=== PATIENT | male | born 1955 | race Caucasian/White ===

== ENCOUNTER → 2022-10-13 | Outpatient (CLI) | payer MEDICARE, OTHER, SELFPAY ==
--- NOTE | 2022-10-13 08:15 | CT_ITS ---
STUDY: CT LEFT SHOULDER REASON FOR EXAM: Male, 66 years old. PRE OP WAS RADIATION DOSAGE (If Supplied By Facility): CTDIvol = ( 28.82 ) mGy, DLP = ( 799.29 ) mGycm TECHNIQUE: The patient was scanned in a multi detector CT scanner. High resolution transaxial imaging was performed without the administration of intravenous contrast material. Sagittal and coronal images were reconstructed. Individualized dose optimization techniques were used for this CT. COMPARISON: None. FINDINGS: There is moderate osteoarthritis, with moderate articular joint space narrowing and moderate osteoarthritic spurring. There is a 1.4 cm x 1 cm cystic change in the subglenoid bone. Normal humeral head, neck and tuberosities. Decreased distance between the humeral head in the acromion suggestive of a rotator cuff pathology. Normal coracoid process. Normal visualized lateral clavicle. Normal acromioclavicular articulation. There is a Type II morphology (curved), with a neutral orientation. Normal visualized muscles and soft tissue structures. CT/Extremity Upper without Contra IMPRESSION: Moderate degree of osteoarthritis involving the glenohumeral joint. Decreased distance between the humeral head and acromion suggestive of a rotator cuff pathology. Electronically Signed: Robert Green MD at 9:46 EST ,
== END | disposition home or self-care (01) ==
PROVIDERS: PCP Internal Medicine; Referring Provider Specialist; Visit Provider Specialist
DX: M19.012 Primary osteoarthritis, left shoulder (principal)
CPT/HCPCS: 73200

== ENCOUNTER → 2023-03-29 | Outpatient (CLI) | payer MEDICARE, OTHER, SELFPAY ==
[2023-03-29 12:21] LABS: Absolute Lymphocyte Count 1.32 X10^3/uL (0.83-4.51); Absolute Neutrophil Count 4.4 X10^3/uL (2.0-7.7); Basophil# 0.03 X10^3/uL; Basophil% 0.5 % (0-1); Eosinophil# 0.12 X10^3/uL; Eosinophils% 1.8 % (0-5); Hematocrit 49.4 % (40-54); Hemoglobin 16.1 g/dL (13.0-16.5); Lymphocyte # 1.32 X10^3/ul (0.83-4.51); Lymphocyte % 20.3 % (19-41); Mean Corp Hgb Conc 32.6 g/dL (32-36); Mean Corpuscular Hgb 30.3 pg (27.0-32.0); Mean Corpuscular Volume 92.9 fL (80-94); Mean Platelet Vol. 10.8 fl (6.2-12.0); Monocyte# 0.65 X10^3/uL; NRBC Flagged by Analyzer 0 % (0-5); Neutrophil # 4.35 X10^3/uL (2.7-7.7); Neutrophil % 67.1 % (47-70); Platelet Count 192 K/mm3 (150-450); RBC Distribution Width CV 13.2 % (11.6-14.6); RBC Distribution Width SD 44.9 fl (35.1-43.9); Red Blood Count 5.32 M/mm3 (4.6-6.2); White Blood Count 6.5 K/mm3 (4.4-11.0)
[2023-03-29 12:55] LABS: ALB/GLOB Ratio 1.2 RATIO (0.9-2.4); AST(SGOT) 25 U/L (15-37); Alanine Aminotransfer ALT/SGPT 37 U/L (16-61); Albumin, Serum 3.5 g/dL (3.2-5.0); Alkaline Phosphatase 28 U/L (45-117); Anion Gap 8 (5-15); BUN 17 mg/dL (7-18); Calcium,Total 9.2 mg/dL (8.5-10.1); Chloride 108 mmol/L (98-107); Cholesterol 139 mg/dL (200); Creatinine, Serum 0.77 mg/dL (0.70-1.30); EST Glomerular Filtration Rate 106 mL/min (>60); Est Glom Filt Rate - Afr Amer 128 mL/min (>60); Glucose 112 mg/dL (74-106); High Density Lipoprotein 52 mg/dL; PSA,Total - Annual Screen 1.04 ng/mL (0.00-4.00); Potassium 3.7 mmol/L (3.5-5.1); Protein, Total 6.5 g/dL (6.4-8.2); Sodium Level 139 mmol/L (136-145); Triglycerides 68 mg/dL; Very Low Density Lipoprotein 14 mg/dL (5-40)
[2023-03-30 16:30] LABS: Hemoglobin A1c 5.3 % (3.8-5.6)
[2023-04-07 10:09] LABS: Testosterone, % Free 2.24 % (1.50-4.20); Testosterone, Free 10.73 ng/dL (5.00-21.00); Testosterone, Total 479 ng/dL (264-916)
== END | disposition home or self-care (01) ==
LOC: BIMLAB 08:47
PROVIDERS: PCP Internal Medicine; Visit Provider Internal Medicine
DX: I10 Essential (primary) hypertension (principal); E34.9 Endocrine disorder, unspecified; R73.9 Hyperglycemia, unspecified; Z12.5 Encounter for screening for malignant neoplasm of prostate
CPT/HCPCS: 36415; 80053; 80061; 83036; 84153; 84402; 84403; 85025; G0103

== ENCOUNTER → 2023-04-11 | Outpatient (CLI) | payer MEDICARE, OTHER, SELFPAY ==
--- NOTE | 2023-04-11 15:38 | MRI_ITS ---
INDICATION: pain INTO LEGS BILATERALLY, X 6-9 MONTHS EXAMINATION: MRI - MR Spine Lumbar WO/W Contrast TECHNIQUE: Multiplanar and multisequence MR images of the lumbar spine. IV Contrast Dosage and Agent: 20 CC IV CLARISCAN COMPARISON: 03/29/2023. FINDINGS: VERTEBRAE: Vertebral body heights are preserved. Normal vertebral bodies and posterior elements. VERTEBRAL ALIGNMENT: No spondylolisthesis. There is preservation of the normal lumbar lordosis. CORD: Normal position and signal intensity of the conus medullaris. T12/L1, L1/L2:, L2/L3: Decreased disc height and small circumferential disc bulge. Degenerative changes of the bilateral facet joints. Mild narrowing of the central canal and bilateral intervertebral neural foramina. L3/L4: Congenitally short pedicles, large synovial cyst originating from the right facet joint measures 13 x 21 mm and small circumferential disc bulge. Degenerative changes of the bilateral facet joints. Severe narrowing of the central canal and moderate narrowing of the bilateral intervertebral neural foramina. L4/L5, L5/S1: Decreased disc height and small circumferential disc bulge. Degenerative changes of the bilateral facet joints. Mild narrowing of the central canal and bilateral intervertebral neural foramina. SOFT TISSUES: Unremarkable. MRI/Spine Lumbar W/WO Contrast IMPRESSION: Multilevel degenerative spondylosis worse at L3-4 as described above. Severe spinal canal stenosis at L3-4. Electronically Signed: Hina Bhagat MD at 5:14 EDT ,
== END | disposition home or self-care (01) ==
LOC: MRI 15:25
PROVIDERS: PCP Internal Medicine; Referring Provider Orthopaedic Surgery; Visit Provider Orthopaedic Surgery
DX: M48.061 Spinal stenosis, lumbar region without neurogenic claudication (principal)
CPT/HCPCS: 72158; A9575

== ENCOUNTER 2023-07-03 08:42 | Day surgery (SDC) | payer MEDICARE, OTHER, SELFPAY ==
[2023-07-03 09:19] VITALS: BP 131/75; PULSE 82; RESP 16; TEMP 36.2; O2SAT 95; BMI 27.0
[2023-07-03] MEDS: Lactated Ringers 1,000 ML 15 ML IV (09:26)
--- NOTE | 2023-07-03 10:02 | RAD_ITS ---
PROCEDURE: Caudal epidural steroid injection. DATE OF EXAMINATION: July 03, 2023. INDICATION: Male, 67 years old. Chronic low back pain. FLUOROSCOPY TIME (if supplied): (3 seconds) minutes/seconds. 1.3 mGy. One spot image was submitted. RAD/Fluor Guidance for Spine Inj IMPRESSION: Intraoperative imaging provided for caudal epidural steroid injection. Electronically Signed: Robert Green MD at 11:03 EST ,
[2023-07-03] MEDS: MethylPREDNISolone Acetate 80 MG/ML Vial (10:08)
[2023-07-03] MEDS: 0.9% Normal Saline (Pres. free 10 ML Vial (10:08)
[2023-07-03] MEDS: Lidocaine 1% (5 ml sdv) 5 ML Vial (10:08)
[2023-07-03 10:15] VITALS: BP 124/61; BP 131/75; PULSE 70; RESP 16; TEMP 37.1; O2SAT 95
--- NOTE | 2023-07-03 10:15 | PCM.OPRPT ---
Report of Operation Date of Procedure: 07/03/23 Pre-Operative Diagnosis: Lumbosacral radiculopathy, postlaminectomy syndrome of the lumbar spine, lumbosacral spinal stenosis Post-Operative Diagnosis: Lumbosacral radiculopathy, postlaminectomy syndrome of the lumbar spine, lumbosacral spinal stenosis Surgery/Procedure Performed:: Diagnostic/therapeutic caudal epidural steroid injection under fluoroscopic guidance Type of Anesthesia: MAC Estimated Blood Loss (mL): Minimal Description of Procedure: DESCRIPTION OF PROCEDURE: History and physical of today was reviewed. Risks and benefits of the procedure were explained. The patient understood and agreed to proceed. Informed consent was obtained. IV inserted per routine protocol. The patient was taken to the operating room and placed in the prone position with a pillow positioned underneath the abdomen. The lower back and tailbone area was prepped and draped in a sterile fashion using iodine x3. Under fluoroscopy guidance on a lateral view, the caudal space was identified. The skin and subcutaneous tissue was anesthetized with approximately 3 mL of 1% lidocaine using a 25-gauge regular needle. Under direct visualization with fluoroscopy, using a 22-gauge 3-1/2-inch spinal needle, the needle was advanced via the skin through the sacral hiatus. The tip of the needle was passed through the sacrococcygeal ligament and advanced to approximately S4 area. After negative aspiration of blood or CSF, a total of 3 mL of contrast was injected to confirm correct placement of the needle as well as cephalad spread. The spread was followed to approximately L5 area. After confirmation on AP as well as lateral view and repeated negative aspiration, a total of 15 mL of preservative-free 0.125% Marcaine with 80 mg of Depo-Medrol was injected easily. The needle was then removed intact. The patient experienced no sign or symptoms of intrathecal or intravascular injection. The patient experienced no paresthesia. The procedure was completed without any apparent difficulty or any complications. The patient appeared to tolerate it well. ASSESSMENT AND PLAN: This is a 67-year-old male with lumbosacral radiculopathy, lumbosacral degenerative disc disease, lumbosacral spinal stenosis status post diagnostic/therapeutic caudal epidural steroid injection, patient will continue his current medications, patient will follow in approximately 2 weeks for reevaluation. Complications None
[2023-07-03 10:20] VITALS: BP 106/64; BP 131/75; PULSE 71; RESP 16; O2SAT 94
[2023-07-03 10:25] VITALS: BP 112/65; BP 131/75; PULSE 69; RESP 16; O2SAT 94
[2023-07-03 10:40] VITALS: BP 117/63; BP 131/75; PULSE 73; RESP 16; TEMP 36.7; O2SAT 92
[2023-07-03 10:56] VITALS: BP 131/75
== END 2023-07-03 10:56 | disposition home or self-care (01) ==
LOC: SDC 08:47 → AC 08:49
PROVIDERS: PCP Internal Medicine; Referring Provider Anesthesiology Pain Medicine; Visit Provider Anesthesiology Pain Medicine
PROC: 3E0S3BZ Introduction of Anesthetic Agent into Epidural Space, Percutaneous Approach (ICD-10-PCS; CPT 62282; principal; 2023-07-03 10:35)
DX: M48.061 Spinal stenosis, lumbar region without neurogenic claudication (principal); M51.17 Intervertebral disc disorders with radiculopathy, lumbosacral region; M96.1 Postlaminectomy syndrome, not elsewhere classified; M48.07 Spinal stenosis, lumbosacral region; I10 Essential (primary) hypertension; E34.9 Endocrine disorder, unspecified; J45.909 Unspecified asthma, uncomplicated
CPT/HCPCS: 62323; 64483; 77003; J7120; J3490

== ENCOUNTER 2023-07-27 13:30 | Outpatient (RCR) | payer MEDICARE, OTHER, SELFPAY ==
--- NOTE | 2023-06-28 08:16 | HP.OTEVAL ---
Patient's Visit Information Visit Information Visit Information: NEGRITA CASTAÑEDA is a 67 year old M, referred to Occupational Therapy by KATIANA WILEY, with a diagnosis of . 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 pt states his left wrist had been painful for years. Had some set backs with other shoulder issues and now had sx. to decrease pain. pt is left handed and would like to write and have more ROM of his wrist to brush his teeth better. 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 Oder request eval & tx AAROM/AROM of wrist, scar management and wean from brace- progress wrist ROM for 4-6 weeks. pt to wear brace with activities and when sleeping- remove brace 4-6x a day for OT ex. pt demo with limited ROM of left wrist and use of dominate hand for ADLs. pt demo need for skilled OT services 1-2x week for 8 weeks to provide ex for pt to return to IND with ADLs and IADls. Rehabilitation Potential: Good Anticipated Interventions Anticipated Interventions: A/AAROM/PROM, Strengthening, Modalities, Joint Protection/Energy Conservation, Ergonomic Education, Fine Motor Coord/Vazquez, Education re assistive Equipment, Education re Diagnosis and Home Program Visit Plan Frequency: 1-2x /Week Duration: 2 Months General Plan: AROM/ AAROM of wrist wean from brace over next 4-6 weeks ( orders written on 06/15/23) NO strengthening until Dr. avendano Must ensure pain free rehabilitation program TEXT: Thank you for the opportunity to evaluate your patient. For Medicare and Medicare HMO plans, please review the plan of care and approve it. It will need to be FAXED BACK to us at [phone] for Medicare purposes. Please let me know if there are questions or concerns regarding this plan of care. Physician Signature: Date:
--- NOTE | 2023-07-27 13:55 | OTREVAL_ITS ---
Re-Evaluation Intro: KATIANA WILEY, It has been my pleasure to treat NEGRITA CASTAÑEDA over the last 4 visits for Proximal row carpectomy. Please see the progress note below for an update on the occupational therapy plan of care! Subjective Subjective: pt states he is feeling good- feel like he as more strength states he has been out of his wrist brace when in his home and doing some wt. on gym eq. without difficulty 12 weeks s/p from proximal row carpectomy Objective Objective/Function: left jack frame tender strength 40# left lateral pinch 8# left tripod pinch 10# left wrist ROM 45/40 increase from 35/20 pt has progressed well with his ROM and strength Pt is IND with all ADLs pt is driving IND pt has returned to gym using the UB eq. and has his wts about 10# less than what he was doing prior to his PRC sx. pt has met goals and can be D/c from OT services Plan Plan Frequency: 1-2x /Week Duration: 2 Months Goals Goals Patient Goals: Regain Mobility, Regain Strength, Improve Fine Motor Skills and Use Hand/Wrist/Arm Normally Again Goal:100% adherence to protocol: Yes Goal:Daily scar massage when approriate: Yes Goal:No pain with affected hand use: Yes Goal:Full use of affected hand in daily activities including work: Yes Goal:Decrease scar hypersensitivity: Yes Anticipated Interventions Anticipated Interventions Anticipated Interventions: A/AAROM/PROM, Strengthening, Modalities, Joint Protection/Energy Conservation, Ergonomic Education, Fine Motor Coord/Vazquez, Education re assistive Equipment, Education re Diagnosis and Home Program Re-Evaluation Ending Re-evaluation ending: Please do not hesitate to contact me at [phone] by phone or if you have questions or concerns regarding this new plan of care! Sincerely, Jayla Reddy, OTR/L, CHT
--- NOTE | 2023-07-27 13:59 | HP.OTDCSUM ---
Discharge Summary D/C Summary: It has been my pleasure to treat NEGRITA CASTAÑEDA under orders from KATIANA WILEY, for the diagnosis of Proximal row carpectomy for a total of 4 visit(s). Please see the following information for a summary of their discharge status. 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 and has his wts about 10# less than what he was doing prior to his PRC sx. pt has met goals and can be D/c from OT services Goals Patient Goals: Regain Mobility, Regain Strength, Improve Fine Motor Skills and Use Hand/Wrist/Arm Normally Again Goal:100% adherence to protocol: Yes Goal:Daily scar massage when approriate: Yes Goal:No pain with affected hand use: Yes Goal:Full use of affected hand in daily activities including work: Yes Goal:Decrease scar hypersensitivity: Yes D/C Information d/c sentence: If there are questions or concerns regarding this patient's occupational therapy, please fell free to call me at [phone]. Thank you for the referral of this patient. Sincerely, Jayla Reddy, OTR/L, CHT
== END 2023-07-27 19:00 | disposition home or self-care (01) ==
LOC: OT 13:30
PROVIDERS: PCP Internal Medicine
DX: M19.032 Primary osteoarthritis, left wrist (principal)
CPT/HCPCS: 97110; 97140; 97166; 97530

== ENCOUNTER → 2023-08-22 | Outpatient (CLI) | payer MEDICARE, OTHER, SELFPAY ==
[2023-08-22 12:11] LABS: Absolute Lymphocyte Count 1.32 X10^3/uL (0.83-4.51); Absolute Neutrophil Count 5.2 X10^3/uL (2.0-7.7); Basophil# 0.06 X10^3/uL; Basophil% 0.8 % (0-1); Eosinophil# 0.14 X10^3/uL; Eosinophils% 1.9 % (0-5); Hematocrit 49.6 % (40-54); Hemoglobin 15.6 g/dL (13.0-16.5); Lymphocyte # 1.32 X10^3/ul (0.83-4.51); Lymphocyte % 17.5 % (19-41); Mean Corp Hgb Conc 31.5 g/dL (32-36); Mean Corpuscular Hgb 29.5 pg (27.0-32.0); Mean Corpuscular Volume 93.8 fL (80-94); Mean Platelet Vol. 10.6 fl (6.2-12.0); Monocyte# 0.75 X10^3/uL; Monocyte% 9.9 % (0-10); NRBC Flagged by Analyzer 0 % (0-5); Neutrophil # 5.24 X10^3/uL (2.7-7.7); Neutrophil % 69.4 % (47-70); Platelet Count 265 K/mm3 (150-450); RBC Distribution Width CV 12.7 % (11.6-14.6); RBC Distribution Width SD 43.7 fl (35.1-43.9); Red Blood Count 5.29 M/mm3 (4.6-6.2); White Blood Count 7.6 K/mm3 (4.4-11.0)
[2023-08-22 12:25] LABS: ALB/GLOB Ratio 1.1 RATIO (0.9-2.4); AST(SGOT) 23 U/L (15-37); Alanine Aminotransfer ALT/SGPT 32 U/L (16-61); Albumin, Serum 3.4 g/dL (3.2-5.0); Alkaline Phosphatase 33 U/L (45-117); Anion Gap 1 (5-15); BUN 15 mg/dL (7-18); BUN/Creat Ratio 19.8 RATIO (10-20); Calcium,Total 9.5 mg/dL (8.5-10.1); Chloride 107 mmol/L (98-107); Creatinine, Serum 0.76 mg/dL (0.70-1.30); EST Glomerular Filtration Rate 108 mL/min (>60); Est Glom Filt Rate - Afr Amer 131 mL/min (>60); Globulin 3.2 g/dL (2.2-4.2); Glucose 93 mg/dL (74-106); Potassium 3.9 mmol/L (3.5-5.1); Protein, Total 6.6 g/dL (6.4-8.2); Sodium Level 140 mmol/L (136-145)
[2023-08-22 12:39] LABS: BNP,B-Type NATRIURETIC PEPTIDE 10.6 pg/mL (0-100)
== END | disposition home or self-care (01) ==
LOC: BIMLAB 10:55
PROVIDERS: PCP Internal Medicine; Referring Provider Physician Assistant; Visit Provider Physician Assistant
DX: R60.0 Localized edema (principal); J30.2 Other seasonal allergic rhinitis; I10 Essential (primary) hypertension
CPT/HCPCS: 36415; 80053; 83880; 85025

== ENCOUNTER 2023-10-09 08:41 | Emergency (ER) | payer MEDICARE, OTHER, SELFPAY ==
[2023-10-09 08:42] VITALS: BP 159/90; PULSE 88; RESP 14; TEMP 36.8; O2SAT 94; BMI 27.7
--- NOTE | 2023-10-09 09:15 | EDS_ITS ---
HPI History of Present Illness Chief Complaint: Back [facility] Medical History Alcohol use Arthritis Asthma Back pain Blood glucose elevated Easy bruising Health care maintenance High cholesterol History of back problems History of pain when walking History of stress test Hormone deficiency Hypertension Osteoarthritis Seasonal allergies Skin cancer Testosterone deficiency Wears glasses Home Medications cholecalciferol (vitamin D3) 25 mcg (1,000 unit) capsule 25 mcg PO DAILY 02/16/23 [History Last Taken Unknown] fluticasone furoate 100 mcg-vilanterol 25 mcg/dose inhalation powder (Breo Ellipta) 1 inh inhalation DAILY 02/16/23 [History Last Taken Unknown] hydrochlorothiazide 12.5 mg tablet 12.5 mg PO DAILY 02/16/23 [History Last Taken Unknown] testosterone 1 % (50 mg/5 gram) transdermal gel packet 1 packet transdermal DAILY 02/16/23 [History Last Taken Unknown] albuterol sulfate 90 mcg/actuation aerosol inhaler 2 puff inhalation Q6H PRN shortness of breath or wheezing #8.5 grams 05/23/23 [Rx Last Taken Unknown] atorvastatin 20 mg tablet 20 mg PO DAILY #90 tabs 06/28/23 [Rx Last Taken Unknown] diltiazem HCl 180 mg capsule,extended release 24 hr 180 mg PO DAILY #90 caps 06/28/23 [Rx Last Taken Unknown] lisinopril 10 mg tablet 10 mg PO DAILY #90 tabs 06/28/23 [Rx Last Taken 07/03/23] hydrocodone-acetaminophen 5-325mg 5mg-325mg tab PO 08/22/23 [History Last Taken Unknown] hydrocodone 5 mg-acetaminophen 300 mg tablet 1 tab PO Q6H PRN pain 3 days #12 tabs 10/09/23 [Rx Last Taken Unknown] Allergy/AdvReac Type Severity Reaction Status Date / Time No Known Allergies Allergy Verified 10/09/23 09:02 Family History Other Alcoholism Arthritis Colon cancer Heart disease Hypertension Respiratory disease Surgical History History of back surgery History of knee replacement History of surgery on left wrist Hx of shoulder surgery Hx of thumb surgery Social History Smoking Status: Never smoker alcohol intake: current details: 2-4 a week substance use type: does not use what type of physical activity do you participate in: walking frequency: 3-4 times per week EXAM Physical Exam Const Vital Signs: 10/09/23 08:42 10/09/23 09:48 Temperature 98.2 F Temperature Source Temporal Pulse Rate 88 62 Respiratory Rate 14 15 Blood Pressure 159/90 H 138/74 H Blood Pressure Mean 113 95 Pulse Ox 94 98 Oxygen Delivery Method Room Air [facility] [place] Narrative Medical decision making narrative: HISTORY OF PRESENT ILLNESS: 67-year-old male presents with back pain. Notes 3 days of back pain. Notes left-sided back pain that radiates on the left leg. Denies any injury. Does not occur after lifting heavy objects. Denies any falls or car accidents. Notes similar symptoms in the past. Notes being diagnosed with spinal stenosis in the past. Denies any abdominal pain. Denies a history of kidney stones. Denies any changes to bowel or bladder habits. No dysuria, urinary frequency or urgency noted. Patient denies any saddle anesthesia, urinary tension, bowel or bladder incontinence, lower extremity weakness, fever or IV drug use, no recent spinal manipulation or surgery, no recent urinary catheterization. REVIEW OF SYSTEMS: All other systems reviewed and are negative except as noted in the history of present illness. At least 10 review of systems reviewed and are negative except as noted in history of present illness. PHYSICAL EXAM: Nursing triage notes reviewed, Vital signs reviewed Constitutional: please see [facility] HENT: MMM Eyes: Pupils equal round and reactive to light, Extraocular muscles intact Neck: No stridor, no JVD, full neck ROM Lungs: Clear to auscultation, No wheezing or rales. No increased work of breathing, no conversational dyspnea, no accessory muscle use, no nasal flaring. No respiratory distress noted Heart: Regular rate and rhythm, No murmurs, No rubs and No gallops, 2+ distal pulses (radial, femoral, posterior tibial) in all extremities Abdomen: Soft, there is no tenderness, rigidity, rebound or guarding, no obvious peritoneal signs, no palpable pulsatile abdominal masses, no auscultated abdominal bruit : No CVAT Extremities: No edema Back: No midline step-offs or deformities, left-sided paraspinal TTP. Neuro: Intact sensation L1-S1 dermatomal distributions. Intact 5/5 strength in hip flexion (T12-L3). Knee extension (L2-L4). Ankle dorsiflexion (L4-L5). Ankle plantar flexion (S1). Great toe extension (L5). 2+ patellar and Achilles DTRs. Skin: No rash or lesions noted MEDICAL DECISION MAKING: Chief Complaint: Back pain External records reviewed: Imaging reviewed: MRI from March 2023 shows multilevel degenerative spondylosis worse at L3-L4, severe spinal canal stenosis at L3 and L4 PDMP reviewed multiple narcotic prescriptions are multiple different providers Factors affecting care: Spinal stenosis, chronic back pain Social determinants of health: No IV drug use History obtained from others: none] Consults: none ALL IMAGES (IF OBTAINED) HAVE BEEN PERSONALLY REVIEWED AND INTERPRETED BY MYSELF. MDM Narrative: Patient was hemodynamically stable, afebrile, nontoxic-appearing. Exam I considered the following differential diagnosis: Musculoskeletal back pain, s pace-occupying lesion of the spinal (epidural abscess, epidural hematoma), cauda equina, conus medullaris, fracture dislocation, AAA, nephrolithiasis, pyelonephritis, aortic dissection The patient presented complaining of back pain. There was no history of recent fall or trauma. There was no evidence to support genitourinary etiology. There is also no evidence to suggest vascular pathology such as AAA dissection. No fevers or other evidence to suspect infectious processes, abscess, osteomyelitis etc. The patient?s neurological exam is normal with normal motor and sensory. There is no saddle paresthesias reported and no bowel or bladder incontinence or retention. I suspect the pain is mechanical in nature. Clinical suspicion, plan of care and management was discussed with the patient. The patient was instructed to follow up with their health care provider. The patient was also instructed to return if the pain worsened, changed, or developed weakness or bowel or bladder trouble. The patient agreed with plan. I prescribed the patient oral narcotics. With a discussion about his pain management contract. He was okay receiving a prescription for me today in light of the fact that this may terminate his pain management contract. I completed a structured, evidence-based clinical evaluation to screen for acute non-traumatic spinal emergencies. The patient has a normal detailed neurologic exam and red flag historical factors were negative. The evidence indicates that the patient is very low risk for an acute spinal emergency and this is consistent with my clinical intuition. The risk of further workup is higher than the likelihood of the patient having a spinal epidural abscess or other dangerous emergency spinal condition. It is, therefore, in the patient?s best interest not to do additional emergent testing at this time. Shared Decision-Making I have discussed with the patient my clinical impression and the result of an evidence-based clinical evaluation to screen for spinal epidural abscess and other spinal emergencies, as well as the risk of further testing and hospitalization. The evidence shows that the risk for an acute spinal emergency is less than 1%. Although the risk of an acute spinal emergency has not been completely eliminated, the risks of further testing likely exceed any potential benefit, and the patient agrees with not pursuing further emergent evaluation for causes of back pain at this time. The patient and/or family, caregivers express understanding. The patient and/or family, caregivers agrees with the plan. Total critical care time today provided was at least 0 minutes. This excludes separately billable procedures. Critical care time (if documented) is secondary to the patient having high probability of clinically significant/life threatening deterioration in the patient's condition which required my urgent intervention. Impression: 1. Lumbar radiculopathy 2. History of spinal stenosis Disposition: Discharge home Jimy Bolanos DO Discharge Plan Triage Chief Complaint: Back ED Provider: Jimy Bolanos Dx/Rx/DC Orders Clinical Impression: Spinal stenosis of lumbar region with radiculopathy Instructions: ED Sciatica Prescriptions: New hydrocodone-acetaminophen 5-300 mg tablet 1 tab PO Q6H PRN (Reason: pain) 3 Days Qty: 12 0RF No Action testosterone 1 % (50 mg/5 gram) gel in packet 1 packet transdermal DAILY hydrochlorothiazide 12.5 mg tablet 12.5 mg PO DAILY fluticasone furoate-vilanterol [Breo Ellipta] 100-25 mcg/dose blister with device 1 inh inhalation DAILY cholecalciferol (vitamin D3) 25 mcg (1,000 unit) capsule 25 mcg PO DAILY diltiazem HCl 180 mg capsule,extended release 24hr 180 mg PO DAILY Qty: 90 1RF lisinopril 10 mg tablet 10 mg PO DAILY Qty: 90 1RF atorvastatin 20 mg tablet 20 mg PO DAILY Qty: 90 1RF hydrocodone-acetaminophen 5-325 mg tablet PO albuterol sulfate 90 mcg/actuation HFA aerosol inhaler 2 puff inhalation Q6H PRN (Reason: shortness of breath or wheezing) Qty: 8.5 1RF Stand Alone Forms: ED Work / School Excuse Primary Care Provider: Mercy Perry Referrals: Mercy Perry MD [Primary Care Provider] - Robinson Hadley DO [Med Staff - Active Staff] - Activity Restrictions/Additional Instructions: Thank you for trusting us with your care today! Please take Tylenol (2 pills, 650 mg), ibuprofen (2 pills, 400 mg) every 6 hours as needed for pain and fever control. Please take prescribed Vicodin in lieu of Tylenol for breakthrough pain. Do not take Vicodin and Tylenol together as likely contains Tylenol. Please go to your local pharmacy or drugstore obtain Salonpas lidocaine patches and apply these topically for additional relief. Please return to the emergency department if your symptoms change or worsen. Specifically develop bowel or bladder incontinence, urinary retention, loss of movement or sensation in your lower extremities Please follow with your primary care physician, pain management sedation and orthopedic surgery for further outpatient evaluation and management. Disposition Disposition: Home, Self Care Discharge Date/Time: 10/09/23 09:49
[2023-10-09] MEDS: Ibuprofen 200 MG Tablet 400 MG PO (09:43)
[2023-10-09] MEDS: predniSONE 20 MG Tablet 40 MG PO (09:43)
[2023-10-09] MEDS: Lidocaine 5% Patch 1 PATCH TOPICAL (09:43)
[2023-10-09] MEDS: Oxycodone/Apap 5/325 Tablet PO (09:44)
[2023-10-09 09:48] VITALS: BP 138/74; PULSE 62; RESP 15; O2SAT 98
== END 2023-10-09 09:49 | disposition home or self-care (01) ==
LOC: ED 09:43
PROVIDERS: Emergency Provider Emergency Medicine; PCP Internal Medicine; Visit Provider Emergency Medicine
DX: M48.061 Spinal stenosis, lumbar region without neurogenic claudication (principal); M54.16 Radiculopathy, lumbar region; E78.00 Pure hypercholesterolemia, unspecified; I10 Essential (primary) hypertension; Z85.828 Personal history of other malignant neoplasm of skin; Z79.51 Long term (current) use of inhaled steroids; Z79.899 Other long term (current) drug therapy; Z96.659 Presence of unspecified artificial knee joint
CPT/HCPCS: 99284

== ENCOUNTER → 2023-10-17 | Outpatient (CLI) | payer MEDICARE, OTHER, SELFPAY ==
--- NOTE | 2023-10-17 16:29 | MRI_ITS ---
STUDY: MRI LUMBAR SPINE WITHOUT CONTRAST REASON FOR EXAM: Male, 67 years old. NEW LEFT LEG WEAKNESS after 10/12/23 bilateral lumbar MBB at L4-S1 TECHNIQUE: Standardized fat and water weighted pulse sequences were obtained in the sagittal and axial planes. COMPARISON: April 11, 2023 FINDINGS: T12-L1: Normal endplates. Narrowed disc space with desiccation of the disc and minimal annular bulge.. Normal bilateral facet joints. Normal central canal and bilateral lateral recesses. Normal bilateral intervertebral neural foramina. Normal lumbar lordosis. There is no substantial scoliosis. Normal conus medullaris that terminates at T12 L1-2: Normal endplates. Narrowed disc space with desiccation of the disc and minimal annular bulge. Mild facet arthropathy and thickening of ligamenta flava.. Normal central canal and bilateral lateral recesses. Mild bilateral neural foraminal encroachment L2-3: Mild anterior endplate spurring. Narrowed disc space with desiccation of the disc and mild annular bulge.. Facet arthropathy and thickening of ligamenta flava. Normal central canal and bilateral lateral recesses. Moderate bilateral neural foraminal encroachment L3-4: Normal endplates. Normal disc height, desiccation and moderate annular bulge with left foraminal disc protrusion.. Facet arthropathy and thickening of ligamenta flava with probable synovial cyst on the right. Normal central canal and moderate to severe bilateral lateral recess stenosis more pronounced on the right. Moderate to severe right neural foraminal stenosis and more severe stenosis on the left L4-5: Status post bilateral laminotomy Normal endplates. Normal disc height, desiccation and tiny right foraminal disc protrusion. Facet arthropathy and mild thickening of ligamenta flava.. Normal central canal and bilateral lateral recesses. Moderate right neural foraminal stenosis L5-S1: Status post bilateral laminectomy Normal endplates. Normal disc height, desiccation and tiny right foraminal disc protrusion.. Minor facet arthropathy and thickening of ligamenta flava. Normal central canal and bilateral lateral recesses. Mild left neural foraminal stenosis and moderate narrowing on the right Normal visualized sacral ala. Normal visualized paraspinous soft tissue structures. Little significant change since prior exam MRI/Spine Lumbar (Routine) IMPRESSION: Postop changes at L4-5 and L5-S1.. Spondylosis and multilevel disc degeneration. Multilevel spinal stenosis secondary to disc disease and bony hypertrophy most severe at L3-4 exaggerated by synovial cyst Findings as above Electronically Signed: Alhaji Woodward MD at 18:02 EST ,
--- OUTSIDE RECORDS SUMMARY | 2023-10-17 20:41 | XMS RPT_ITS | CCD ---
Author Name Unknown Address [address] [facility] [address] [place] [address] Organization [facility] Care Team Providers [employer] Name Role Phone Macario Gamez Primary Care Provider [phone] Wade Vega Unavailable JANIS SINCLAIR Attending Unavailable JANIS SINCLAIR Referring Unavailable STENMACARIO BORJAS Primary Care Unavailab Sandra Dunham Unavailable Unavailable StencelMacario Unavailable Unavailable Stenindio Macario D Unavailable Unavailable StenMacario borjas Primary Care Provider [phone] JANIS SINCLAIR Attending Unavailable STENCEL, MACARIO OLSON Primary Care Unavailab JANIS Michael Attending Unavailable SANDRA LAW Referring Unavaila ble STENINDIO, MACARIO OLSON Primary Care Unavailab JANIS Michael Attending Unavailable STENCELMACARIO Primary Care Unavailab JANIS Michael Attending Unavailable STENCELMACARIO Primary Care Unavailab JANIS Michael Attending Unavailable STENCEL, MACARIO OLSON Primary Care Unavailab le Ngozi Diaz Unavailable Unavailable Maddi Velez Unavailable Unavailable Wade Vega Unavailable [phone] Thong Mendoza Unavailable Unavailable Sandra Law Unavailable Unavailable Stencel Macario Amauri Unavailable Unavailable Kinsey Barker Unavailable Unavailable Unavailable Maddi Velez PT Unavailable Unavailable Sandra Law MD Unavailable Unavailable Sandra Law Unavailable Unavailable Stencel Macario D Unavailable Unavailable Unavailable Unavailable None, No PCP Unavailable Unavailable Jocelyn Barkerberly Unavailable Cam Grimes Unavailable Unavailable Kelly Thong Robles Unavailable Unavailable Keyla Cartagena Unavailable EliecerCharles fernandezin Unavailable Unavailable Nirmal Patrice Jordan Unavailable KINSEY BARKER DO Primary Care Physician GregWing oliveiran Unavailable Mikaela Chiu Unavailable Unavailable , Dr. Kinsey Botello Primary Care Unavailabl e Mauricio, Dr. Macario Greer Referring Unavail able Keyla Cartagena Attending Unavailable , Dr. Kinsey Botello Primary Care Unavailabl e , Dr. Kinsey Botello Attending Unavailabl e , Dr. Kinsey Botello Referring Unavailabl e , Dr. Kinsey Botello Attending Unavailabl e , Dr. Kinsey Botello Referring Unavailabl e [place], Dr. Silvestre Naylor Attending Unava ilable , Dr. Kinsey Botello Primary Care Unavailabl e , Dr. Kinsey Botello Primary Care Unavailabl e , Dr. Kinsey Botello Primary Care Unavailabl e , Dr. Kinsey Botello Primary Care Unavailabl e Mauricio, Dr. Macario Greer Attending Unavail able , Dr. Kinsey Botello Referring Unavailabl e , Dr. Kinsey Botello Primary Care Unavailabl e ZPATRICE INTERIANO Attending Unavaila ble ZPATRICE INTERIANO Referring Unavaila ble ZUMBPATRICE CULVER Admitting Unavaila ble ZPATRICE INTERIANO Attending Unavaila ble , Dr. Kinsey Botello Primary Care Unavailabl e , Dr. Kinsey Botello Referring Unavailabl e ZUMBARPATRICE Admitting Unavaila ble , Dr. Kinsey Botello Primary Care Unavailabl e ZPATRICE INTERIANO Attending Unavaila ble ZUMBARPATRICE Referring Unavaila ble ZUMBARPATRICE Admitting Unavaila ble [place], Dr. Kinsey Botello Primary Care Unavailabl e Roney Lassiter Attending Unavailable [place], Dr. Kinsey Botello Primary Care Unavailabl e Grimes, Dr. Cam Bolanos Attending Unavaila ble ZUMBARPATRICE Attending Unavaila ble [place], Dr. Kinsey Botello Primary Care Unavailabl e [place], Dr. Kinsey Botello Primary Care Unavailabl e ZUMBABIOLA, PATRICE RAMÍREZ Attending Unavaila ble , Dr. Kinsey Botello Primary Care Unavailabl e ZJAYDON, PATRICE RAMÍREZ Attending Unavaila ble , Dr. Kinsey Botello Primary Care Unavailabl e ZJAYDON, PATRICE RAMÍREZ Attending Unavaila ble MD MATT BOSCH Admitting Unavailable MD MATT BOSCH Attending Unavailable MD MATT BOSCH Admitting Unavailable HIRO, MD MARC Attending Unavailable , Dr. Kinsey Botello Primary Care Unavailabl e Oren, Ms. Shruti Bruce Attending Unava ilable , Dr. Kinsey Botello Primary Care Unavailabl e [place], Dr. Kinsey Botello Primary Care Unavailabl e Newbill, Pradip Lon Avery Attending Unavail able Kinsey Barker DO Primary Care Provider Kinsey Barker DO Unavailable [phone] TAMIR EDEN, DR ROBBIE Gonzalez Attending Unavailab le ROYAL CASTANEDA KINSEY Primary [facility] Unavailable ROYAL CASTANEDA KINSEY Primary Care Unavailable TAMIR EDEN, DR ROBBIE Gonzalez Attending Unavailab le ROYAL CASTANEDA KINSEY Primary [facility] Unavailable TAMIR EDEN, DR ROBBIE Gonzalez Attending Unavailab easton GARNETT MD, DR ROBBIE Gonzalez Attending Unavailab le ROYAL CASTANEDA [facility] Unavailable TAMIR EDEN, DR ROBBIE Gonzalez Attending Unavailab le ROYAL CASTANEDA KINSEY Primary [facility] Unavailable Allergies Allergy Classification Reported Allergen(s) Allergy Type Date of Onset Reaction(s) Facility Pollen (10 sources) bee pollen Substance Allergy [facility] Work Phone: (7 sources) Cephalexin; Translations: [Unknown] Drug Allergy 6 Diarrhea [facility] (5 sources) Grass pollen Propensity to adverse reactions to drug 6 Itching [facility] (5 sources) Mold Extract Drug Allergy 6 Shortness Of Breath [facility] (20 sources) bee pollen Allergy to substance (finding) -Medical [facility] Work Phone: Medications Current Medications Medication Drug Class(es) Dates Sig (Normalized) Sig (Original) ProAir HFA (20 sources) beta2-Adrenergic Agonist Start: 2022 take 2 puff(s) by inhalation every six hours ProAir MDI HFA 2 puff(s), Inhalation, q6hr Start Date: 11/25/22 Status: Ordered Completed/Discontinued Medications Medication Drug Class(es) Dates Sig (Normalized) Sig (Original) acetaminophen 325 mg / oxyCODONE hydrochloride 5 mg oral tablet (1 source) Opioid Agonist End: 08-22-2019 take 2 tablets by mouth every four hours as needed oxyCODONE-acetami nophen (PERCOCET) 5-325 mg per tablet Take 2 tablets by mouth every 4 (four) hours as needed for pain. 1-2 tabs as needed 0 08/22/2019 Discontinued aspirin 325 mg oral tablet (1 source) Platelet Aggregation Inhibitor, Nonsteroidal Anti-inflammatory Drug End: 08-22-2019 take 1 tablet by mouth twice daily aspirin 325 MG tablet Take 325 mg by mouth 2 (two) times a day. 0 08/22/2019 Discontinued 120 actuat budesonide 0.18 mg/actuat dry powder inhaler (2 sources) Corticosteroid Start: 12-17-2015 End: 08-22-2019 take 1 puff(s) by inhalation twice daily PULMICORT FLEXHALER 180 mcg/actuation inhaler Inhale 1 puff 2 (two) times a day. 0 12/17/2015 08/22/2019 Discontinued Problems Active Problems Problem Classification Problem Date Documented Da te Episodic/Chronic Asthma (20 sources) Asthma; Translations: [Asthma, unspecified type, unspecified] Onset: 08-22-2019 08-22-2019 Chronic Asthma (1 source) Asthma 02-23-2022 Past or Other Problems Problem Classification Problem Date Documented Da te Episodic/Chronic Allergic reactions (18 sources) Eczema; Translations: [Contact dermatitis and other eczema, unspecified cause] Onset: 10-01-2022 10-01-2022 Episodic Malaise and fatigue (3 sources) Other fatigue; Translations: [Other malaise] Onset: 10-29-2022 Episodic Other aftercare (1 source) 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; Translations: [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] Onset: 10-29-2022 Episodic Other connective tissue disease (20 sources) Synovial cyst of lumbar spine; Translations: [Synovial cyst, unspecified] Onset: 10-01-2022 10-01-2022 Episodic Other ear and sense organ disorders (1 source) Impacted cerumen, bilateral; Translations: [Impacted cerumen, bilateral] Onset: 12-03-2022 Episodic Other ear and sense organ disorders (1 source) Impacted cerumen, unspecified ear; Translations: [Impacted cerumen, unspecified ear] Onset: 12-03-2022 Episodic Other endocrine disorders (1 source) Endocrine disorder, unspecified; Translations: [Endocrine disorder, unspecified] Onset: 10-17-2022 Episodic Other hematologic conditions (20 sources) Erythrocytosis; Translations: [Polycythemia vera] Onset: 10-01-2022 05-06-2022 Episodic Results Test Name Value Interpretation Reference Range Facil ity Vital Signs Date Time Vital Sign Value Performing Clinician Facility 01-30-2023 11:09-0400 Body height 185.42 cm [employer] Phone: [facility] Work Phone: 01-30-2023 11:09-0400 Body mass index (BMI) [Ratio] 27.05 kg/m2 [facility] Phone: [facility] Phone: 01-30-2023 11:09-0400 Body surface area Derived from formula 2.17 m2 [facility] Phone: [facility] Phone: 01-30-2023 11:09-0400 Body weight 92.99 kg [facility] Phone: [facility] Phone: 01-30-2023 11:09-0400 Diastolic blood pressure 77 mm[Hg] [facility] Phone: [facility] Phone: 01-30-2023 11:09-0400 Heart rate 73 /min [employer] Phone: [facility] Work Phone: 01-30-2023 11:09-0400 Respiratory rate 16 /min Kinsey S [place] Work Phone: [facility] Work Phone: 01-30-2023 11:09-0400 Systolic blood pressure 152 mm[Hg] Kinsey S [place] Work Phone: [facility] Work Phone: 12-03-2022 10:53-0400 Body height 184 cm Kinsey [place] Other Phone: [facility] 12-03-2022 10:53-0400 Body temperature 97.34 [degF] Kinsey [place] Other Phone: [facility] 12-03-2022 10:53-0400 Diastolic blood pressure 82 mm[Hg] Kinsey [place] Other Phone: [facility] 12-03-2022 10:53-0400 Heart rate 114 /min Kinsey [place] Other Phone: [facility] 12-03-2022 10:53-0400 SaO2% (BldA) [Mass fraction] 94 % Kinsey [place] Other Phone: [facility] 12-03-2022 10:53-0400 Systolic blood pressure 174 mm[Hg] Kinsey [place] Other Phone: [facility] 2022 11:08-[address] ROBBIE GARNETT MD [facility] 2022 11:08-0400 Body height 185.[address] ROBBIE GARNETT MD [facility] 2022 11:08-0400 Body weight 97.[address] ROBBIE GARNETT MD [facility] 2022 11:08-0400 Body weight 28.31 kg/m2 DR ROBBIE GARNETT MD [facility] 2022 11:08-0400 Diastolic Blood Pressure Non-Invasive [address] ROBBIE GARNETT MD [facility] 2022 11:08-0400 Heart rate 83 /min DR ROBBIE GARNETT MD [facility] 2022 11:08-0400 Respiratory rate 20 /min DR ROBBIE GARNETT MD [facility] 2022 11:08-0400 Systolic Blood Pressure Non-Invasive [address] ROBBIE GARNETT MD [facility] 10-24-2022 10:29-0500 Body height 185.42 cm Kinsey Botello [employer] Work Phone: [facility] Work Phone: 10-24-2022 10:29-0500 Body mass index (BMI) [Ratio] 27.88 kg/m2 Kinsey Botello [employer] Phone: [facility] Work Phone: 10-24-2022 10:29-0500 Body surface area Derived from formula 2.2 m2 Kinsey S [employer] Phone: [facility] Work Phone: 10-24-2022 10:29-0500 Body weight 95.85 kg Kinsey Botello [employer] Work Phone: [facility] Work Phone: 10-24-2022 10:29-0500 Diastolic blood pressure 78 mm[Hg] Kinsey Botello [employer] Work Phone: [facility] Work Phone: 10-24-2022 10:29-0500 Heart rate 90 /min Kinsey Barker Work Phone: [facility] Work Phone: 10-24-2022 10:29-0500 SaO2% (BldA) [Mass fraction] 98 % Kinsey Barker Work Phone: [facility] Work Phone: 10-24-2022 10:29-0500 Systolic blood pressure 118 mm[Hg] Kinsey Botello [place] Work Phone: [facility] Work Phone: 09-27-2022 13:09-0500 Body mass index (BMI) [Ratio] 27.31 kg/m2 Kinsey Botello [place] Work Phone: [facility] Work Phone: 09-27-2022 13:09-0500 Body surface area Derived from formula 2.18 m2 Kinsey Botello [place] Work Phone: [facility] Work Phone: 09-27-2022 13:09-0500 Body weight 93.9 kg Kinsey Barker Work Phone: [facility] Work Phone: 09-27-2022 13:09-0500 Diastolic blood pressure 82 mm[Hg] Kinsey Barker Work Phone: [facility] Work Phone: 09-27-2022 13:09-0500 Heart rate 102 /min Kinsey Barker Work Phone: [facility] Work Phone: 09-27-2022 13:09-0500 Respiratory rate 16 /min Kinsey Botello [place] Work Phone: [facility] Work Phone: 09-27-2022 13:09-0500 Systolic blood pressure 136 mm[Hg] Kinsey Botello [place] Work Phone: [facility] Work Phone: 08-01-2022 09:54-0500 Body height 185.42 cm Kinsey Botello [place] Work Phone: [facility] 300 Work Phone: 08-01-2022 09:54-0500 Body mass index (BMI) [Ratio] 28.1 kg/m2 Kinsey Botello [place] Work Phone: [facility] 300 Work Phone: 08-01-2022 09:54-0500 Body surface area Derived from formula 2.21 m2 Kinsey Botello [place] Work Phone: [facility] 300 Work Phone: 08-01-2022 09:54-0500 Body temperature 97.7 [degF] Kinsey Botello [place] Work Phone: [facility] 300 Work Phone: 08-01-2022 09:54-0500 Body weight 96.62 kg Kinsey Botello [place] Work Phone: [facility] 300 Work Phone: 06-20-2022 11:14-0400 Body height 185.42 cm Kinsey Botello [place] Work Phone: AL-Rptebwgs[facility]mt-RTHD C Work Phone: 06-20-2022 11:14-0400 Body mass index (BMI) [Ratio] 27.44 kg/m2 Kinsey Botello [place] Work Phone: DF-Lidjldvvrflr-RICJ C Work Phone: 06-20-2022 11:14-0400 Body surface area Derived from formula 2.19 m2 Kinsey Barker Work Phone: DC-Rkpskmtcfvql-JLQN C Work Phone: 06-20-2022 11:14-0400 Body weight 94.35 kg Kinsey Barker Work Phone: IP-Aujpdtvsadfd-TKGU C Work Phone: 06-20-2022 11:14-0400 Diastolic blood pressure 72 mm[Hg] Kinsey Barker Work Phone: HK-Qiznkrbzvcth-GYZR C Work Phone: 06-20-2022 11:14-0400 Heart rate 89 /min Kinsey Barker Work Phone: YS-Dyozxtzdunkk-QBNV C Work Phone: 06-20-2022 11:14-0400 Respiratory rate 16 /min Kinsey Barker Work Phone: JJ-Ciqjucnlhllk-JARP C Work Phone: 06-20-2022 11:14-0400 SaO2% (BldA) [Mass fraction] 98 % Kinsey Barker Work Phone: RT-Cyrevgtyfckh-LGYN C Work Phone: 06-20-2022 11:14-0400 Systolic blood pressure 127 mm[Hg] Kinsey Barker Work Phone: AF-Lscqrquajpcc-CBCZ C Work Phone: 05-31-2022 12:37-0400 Body height 185.42 cm Kinsey Barker Work Phone: [facility] Work Phone: 05-31-2022 12:37-0400 Body mass index (BMI) [Ratio] 27.44 kg/m2 Kinsey Barker Work Phone: [facility] Work Phone: 05-31-2022 12:37-0400 Body surface area Derived from formula 2.19 m2 Kinsey S [place] Work Phone: [facility] Work Phone: 05-31-2022 12:37-0400 Body weight 94.35 kg Kinsey S [place] Work Phone: [facility] Work Phone: 05-31-2022 12:37-0400 Diastolic blood pressure 74 mm[Hg] Kinsey S [place] Work Phone: [facility] Work Phone: 05-31-2022 12:37-0400 Heart rate 90 /min Kinsey S [place] Work Phone: [facility] Work Phone: 05-31-2022 12:37-0400 Respiratory rate 16 /min Kinsey S [place] Work Phone: [facility] Work Phone: 05-31-2022 12:37-0400 Systolic blood pressure 125 mm[Hg] Kinsey S [place] Work Phone: [facility] Work Phone: 05-22-2022 13:30-0400 Diastolic blood pressure 87 mm[Hg] Kinsey [place] Other Phone: [facility] 05-22-2022 13:30-0400 Heart rate 75 /min Kinsey [place] Other Phone: [facility] 05-22-2022 13:30-0400 Respiratory rate 18 /min Kinsey [place] Other Phone: [facility] 05-22-2022 13:30-0400 SaO2% (BldA) [Mass fraction] 95 % Kinsey [place] Other Phone: [facility] 05-22-2022 13:30-0400 Systolic blood pressure 146 mm[Hg] Kinsey [place] Other Phone: [facility] 05-22-2022 10:50-0400 Body height 185.4 cm Kinsey Barker Other Phone: [facility] 05-22-2022 10:50-0400 Body temperature 97.7 [degF] Kinsey Barker Other Phone: [facility] 05-22-2022 10:50-0400 Body weight 94.5 kg Kinsey Barker Other Phone: [facility] 05-09-2022 08:40-0400 Body height 185.42 cm Kinsey Botello [employer] Work Phone: [facility] [address] DO Work Phone: 05-09-2022 08:40-0400 Body mass index (BMI) [Ratio] 27.31 kg/m2 Kinsey S [place] Work Phone: [facility] 400 DO Work Phone: 05-09-2022 08:40-0400 Body surface area Derived from formula 2.18 m2 Kinsey Botello [employer] Work Phone: [facility] 400 DO Work Phone: 05-09-2022 08:40-0400 Body weight 93.9 kg Kinsey Botello [place] Work Phone: [facility] [address] DO Work Phone: 05-09-2022 08:40-0400 Diastolic blood pressure 78 mm[Hg] Kinsey Botello [place] Work Phone: [facility] [address] DO Work Phone: 05-09-2022 08:40-0400 Heart rate 81 /min Kinsey S [place] Work Phone: [facility] 400 DO Work Phone: 05-09-2022 08:40-0400 SaO2% (BldA) [Mass fraction] 97 % Kinsey Barker Work Phone: [facility] 400 DO Work Phone: 05-09-2022 08:40-0400 Systolic blood pressure 136 mm[Hg] Kinsey Barker Work Phone: [facility] 400 DO Work Phone: 04-28-2022 09:57-0400 Body height 185.42 cm No PCP None -[facility] 300 Work Phone: 04-28-2022 09:57-0400 Body mass index (BMI) [Ratio] 27.76 kg/m2 No PCP None -[facility] 300 Work Phone: 04-28-2022 09:57-0400 Body surface area Derived from formula 2.2 m2 No PCP None [facility] 300 Work Phone: 04-28-2022 09:57-0400 Body temperature 97.5 [degF] No PCP None -[facility] 300 Work Phone: 04-28-2022 09:57-0400 Body weight 95.43 kg No PCP None -[facility] 300 Work Phone: 03-08-2022 08:08-0400 Body height 185.42 cm Kinsey Barker Work Phone: TD-EATBM-Jvtukrdot Work Phone: 03-08-2022 08:08-0400 Body mass index (BMI) [Ratio] 27.23 kg/m2 Kinsey Botello [place] Work Phone: FT-OUZAR-Yeoidviqc Work Phone: 03-08-2022 08:08-0400 Body surface area Derived from formula 2.18 m2 Kinsey Botello [place] Work Phone: QQ-FBEED-Eiptpqupc Work Phone: 03-08-2022 08:08-0400 Body weight 93.61 kg Kinsey Botello [place] Work Phone: OZ-RQBUK-Whdnqivld Work Phone: 03-08-2022 08:08-0400 Diastolic blood pressure 75 mm[Hg] Kinsey Botello [place] Work Phone: EW-GCOMZ-Dfaajjphi Work Phone: 03-08-2022 08:08-0400 Heart rate 93 /min Kinsey Botello [place] Work Phone: OK-FKQWF-Rtloksdbo Work Phone: 03-08-2022 08:08-0400 Respiratory rate 18 /min Kinsey Botello [place] Work Phone: VQ-JLTXR-Tqtimpxcf Work Phone: 03-08-2022 08:08-0400 SaO2% (BldA) [Mass fraction] 93 % Kinsey Botello [place] Work Phone: XM-IHQLS-Vfnwwbvgj Work Phone: 03-08-2022 08:08-0400 Systolic blood pressure 131 mm[Hg] Kinsey Botello [employer] Work Phone: UQ-PBICQ-Alqplevan Work Phone: 02-23-2022 12:53-0400 Body height 185.42 cm Kinsey Botello [employer] Work Phone: [facility] 400 DO Work Phone: 02-23-2022 12:53-0400 Body mass index (BMI) [Ratio] 26.81 kg/m2 Kinsey S [employer] Work Phone: [facility] 400 DO Work Phone: 02-23-2022 12:53-0400 Body surface area Derived from formula 2.17 m2 Kinsey S [employer] Work Phone: [facility] 400 DO Work Phone: 02-23-2022 12:53-0400 Body temperature 96.9 [degF] Kinsey Botello [place] Work Phone: [facility] 400 DO Work Phone: 02-23-2022 12:53-0400 Body weight 92.17 kg Kinsey Botello [place] Work Phone: [facility] 400 DO Work Phone: 02-23-2022 12:53-0400 Diastolic blood pressure 68 mm[Hg] Kinsey Botello [place] Work Phone: [facility] 400 DO Work Phone: 02-23-2022 12:53-0400 Heart rate 108 /min Kinsey Botlelo [place] Work Phone: [facility] 400 DO Work Phone: 02-23-2022 12:53-0400 SaO2% (BldA) [Mass fraction] 95 % Kinsey Botello [place] Work [facility] 400 DO Work Phone: 02-23-2022 12:53-0400 Systolic blood pressure 110 mm[Hg] Kinsey Botello [place] Work Phone: [facility] 400 DO Work Phone: 02-07-2022 09:13-0400 Body mass index (BMI) [Ratio] 27.18 kg/m2 Kinsey Botello [place] Work Phone: [facility] Work Phone: 02-07-2022 09:13-0400 Body surface area Derived from formula 2.18 m2 Kinsey Botello [place] Work Phone: [facility] Work Phone: 02-07-2022 09:13-0400 Body weight 93.44 kg Kinsey Botello [place] Work Phone: [facility] Work Phone: 02-07-2022 09:13-0400 Diastolic blood pressure 80 mm[Hg] Kinsey Botello [place] Work Phone: [facility] Work Phone: 02-07-2022 09:13-0400 Heart rate 87 /min Kinsey S [place] Work Phone: [facility] Work Phone: 02-07-2022 09:13-0400 Respiratory rate 14 /min Kinsey Botello [place] Work Phone: [facility] Work Phone: 02-07-2022 09:13-0400 Systolic blood pressure 147 mm[Hg] Kinsey Barker Work Phone: [facility] Work Phone: 01-28-2022 07:59-0400 Body height 185.42 cm Kinsey Barker Work Phone: [facility] 300 Work Phone: 01-28-2022 07:59-0400 Body mass index (BMI) [Ratio] 27.48 kg/m2 Kinsey Barker Work Phone: [facility] 300 Work Phone: 01-28-2022 07:59-0400 Body surface area Derived from formula 2.19 m2 Kinsey Botello [place] Work Phone: [facility] 300 Work Phone: 01-28-2022 07:59-0400 Body temperature 97.5 [degF] Kinsey S [place] Work Phone: [facility] 300 Work Phone: 01-28-2022 07:59-0400 Body weight 94.46 kg Kinsey Botello [place] Work Phone: [facility] 300 Work Phone: 01-17-2022 13:31-0400 Body height 185.42 cm Kinsey Barker Work Phone: [facility] Work Phone: 01-17-2022 13:31-0400 Body mass index (BMI) [Ratio] 27.84 kg/m2 Kinsey S [place] Work Phone: [facility] Work Phone: 01-17-2022 13:31-0400 Body surface area Derived from formula 2.2 m2 Kinsey Barker Work Phone: [facility] Work Phone: 01-17-2022 13:31-0400 Body weight 95.71 kg Kinsey S [place] Work Phone: [facility] Work Phone: 01-17-2022 13:31-0400 Diastolic blood pressure 72 mm[Hg] Kinsey S [place] Work Phone: [facility] Work Phone: 01-17-2022 13:31-0400 Heart rate 68 /min Kinsey S [place] Work Phone: [facility] Work Phone: 01-17-2022 13:31-0400 Respiratory rate 12 /min Kinsey Botello [place] Work Phone: [facility] Work Phone: 01-17-2022 13:31-0400 Systolic blood pressure 136 mm[Hg] Kinsey S [place] Work Phone: [facility] Work Phone: 12-06-2021 08:51-0400 Body height 185.42 cm Kinsey S [place] Work Phone: [facility] Work Phone: 12-06-2021 08:51-0400 Body mass index (BMI) [Ratio] 27.44 kg/m2 Kinsey S [place] Work Phone: [facility] Work Phone: 12-06-2021 08:51-0400 Body surface area Derived from formula 2.19 m2 Kinsey S [place] Work Phone: [facility] Work Phone: 12-06-2021 08:51-0400 Body weight 94.35 kg Kinsey S [place] Work Phone: [facility] Work Phone: 12-06-2021 08:51-0400 Diastolic blood pressure 76 mm[Hg] Kinsey S [place] Work Phone: [facility] Work Phone: 12-06-2021 08:51-0400 Heart rate 81 /min Kinsey S [place] Work Phone: [facility] Work Phone: 12-06-2021 08:51-0400 Respiratory rate 16 /min Kinsey Barker Work Phone: [facility] Work Phone: 12-06-2021 08:51-0400 Systolic blood pressure 138 mm[Hg] Kinsey S [place] Work Phone: [facility] Work Phone: 11-08-2021 13:53-0400 Body height 185.42 cm Kinsey Botello [place] Work Phone: -[facility] Work Phone: 11-08-2021 13:53-0400 Body mass index (BMI) [Ratio] 27.65 kg/m2 Kinsey S [place] Work Phone: [facility] Work Phone: 11-08-2021 13:53-0400 Body surface area Derived from formula 2.19 m2 Kinsey Barker Work Phone: [facility] Work Phone: 11-08-2021 13:53-0400 Body weight 95.06 kg Kinsey Barker Work Phone: [facility] Work Phone: 11-08-2021 13:53-0400 Diastolic blood pressure 72 mm[Hg] Kinsey Barker Work Phone: [facility] Work Phone: 11-08-2021 13:53-0400 Heart rate 98 /min Kinsey Barker Work Phone: [facility] Work Phone: 11-08-2021 13:53-0400 SaO2% (BldA) [Mass fraction] 96 % Kinsey Barker Work Phone: [facility] Work Phone: 11-08-2021 13:53-0400 Systolic blood pressure 126 mm[Hg] Kinsey Barker Work Phone: [facility] Work Phone: 10-26-2021 08:05-0500 Body height 185.42 cm Kinsey Barker Work Phone: [facility] Medicine 300 Work Phone: 10-26-2021 08:05-0500 Body mass index (BMI) [Ratio] 28.14 kg/m2 Kinsey Barker Work Phone: [facility] Orthopedics [facility] Sports [facility] 300 Work Phone: 10-26-2021 08:05-0500 Body surface area Derived from formula 2.21 m2 Kinsey Botello [place] Work Phone: [facility] Orthopedics and Sports Medicine 300 Work Phone: 10-26-2021 08:05-0500 Body temperature 97.1 [degF] Kinsey Botello [place] Work Phone: [facility] Orthopedics and Sports Medicine 300 Work Phone: 10-26-2021 08:05-0500 Body weight 96.73 kg Kinsey Botello [place] Work Phone: [facility] Orthopedics and Sports Medicine 300 Work Phone: 08-24-2021 13:00-0500 Body height 185.42 cm Kinsey Botello [place] Work Phone: [facility] 400 DO Work Phone: 08-24-2021 13:00-0500 Body mass index (BMI) [Ratio] 28.37 kg/m2 Kinsey Botello [place] Work Phone: [facility] 400 DO Work Phone: 08-24-2021 13:00-0500 Body surface area Derived from formula 2.22 m2 Kinsey Botello [place] Work Phone: [facility] 400 DO Work Phone: 08-24-2021 13:00-0500 Body temperature 97.5 [degF] Kinsey Botello [place] Work Phone: [facility] 400 DO Work Phone: 08-24-2021 13:00-0500 Body weight 97.52 kg Kinsey Botello [place] Work Phone: [facility] 400 DO Work Phone: 08-24-2021 13:00-0500 Diastolic blood pressure 68 mm[Hg] Kinsey Botello [place] Work Phone: [facility] 400 DO Work Phone: 08-24-2021 13:00-0500 Heart rate 82 /min Kinsey Botello [place] Work Phone: [facility] 400 DO Work Phone: 08-24-2021 13:00-0500 SaO2% (BldA) [Mass fraction] 95 % Kinsey Botello [place] Work Phone: [facility] 400 DO Work Phone: 08-24-2021 13:00-0500 Systolic blood pressure 114 mm[Hg] Kinsey Botello [place] Work Phone: [facility] 400 DO Work Phone: 06-01-2021 09:18-0400 Body height 185.42 cm Kinsey Botello [place] Work Phone: [facility] Orthopedics and Sports Medicine 300 Work Phone: 06-01-2021 09:18-0400 Body mass index (BMI) [Ratio] 27.97 kg/m2 Kinsey Botello [place] Work Phone: [facility] Orthopedics and Sports Medicine 300 Work Phone: 06-01-2021 09:18-0400 Body surface area Derived from formula 2.21 m2 Kinsye Botello [place] Work Phone: [facility] Orthopedics and Sports Medicine 300 Work Phone: 06-01-2021 09:18-0400 Body temperature 97.5 [degF] Kinsey Botello [place] Work Phone: [facility] Orthopedics and Sports Medicine 300 Work Phone: 06-01-2021 09:18-0400 Body weight 96.16 kg Kinsey Botello [place] Work Phone: [facility] Orthopedics and Sports Medicine 300 Work Phone: 06-01-2021 09:18-0400 Diastolic blood pressure 60 mm[Hg] Kinsey Botello [place] Work Phone: [facility] Orthopedics and Sports [facility] 300 Work Phone: 06-01-2021 09:18-0400 Systolic blood pressure 120 mm[Hg] Kinsey Botello [place] Work Phone: [facility] Orthopedics and Sports [facility] 300 Work Phone: 05-27-2021 11:38-0400 Body height 185.42 cm Kinsey Botello [place] Work Phone: [facility] 400 DO Work Phone: 05-27-2021 11:38-0400 Body mass index (BMI) [Ratio] 27.76 kg/m2 Kinsey Botello [place] Work Phone: -[facility] 400 DO Work Phone: 05-27-2021 11:38-0400 Body surface area Derived from formula 2.2 m2 Kinsey Botello [place] Work Phone: -[facility] 400 DO Work Phone: 05-27-2021 11:38-0400 Body temperature 97.8 [degF] Kinsey Botello [place] Work Phone: -[facility] 400 DO Work Phone: 05-27-2021 11:38-0400 Body weight 95.43 kg Kinsey Botello [place] Work Phone: -[facility] 400 DO Work Phone: 05-27-2021 11:38-0400 Diastolic blood pressure 72 mm[Hg] Kinsey Botello [place] Work Phone: -[facility] 400 DO Work Phone: 05-27-2021 11:38-0400 Heart rate 80 /min Kinsey Botello [place] Work Phone: -[facility] 400 DO Work Phone: 05-27-2021 11:38-0400 SaO2% (BldA) [Mass fraction] 96 % Kinsey Barker Work Phone: [facility] 400 DO Work Phone: 05-27-2021 11:38-0400 Systolic blood pressure 124 mm[Hg] Kinsey Barker Work Phone: [facility] 400 DO Work Phone: 05-24-2021 10:15-0400 Body height 185.42 cm Kinsey Botello [place] Work Phone: [facility] Work Phone: 05-24-2021 10:15-0400 Body mass index (BMI) [Ratio] 27.71 kg/m2 Kinsey Barker Work Phone: [facility] Work Phone: 05-24-2021 10:15-0400 Body surface area Derived from formula 2.2 m2 Kinsey Botello [place] Work Phone: [facility] Work Phone: 05-24-2021 10:15-0400 Body temperature 98.8 [degF] Kinsey Barker Work Phone: [facility] Work Phone: 05-24-2021 10:15-0400 Body weight 95.26 kg Kinsey Botello [place] Work Phone: [facility] Work Phone: 05-24-2021 10:15-0400 Diastolic blood pressure 88 mm[Hg] Kinsey Botello [employer] Work Phone: [facility] Work Phone: 05-24-2021 10:15-0400 Heart rate 80 /min Kinsey Botello [place] Work Phone: [facility] Work Phone: 05-24-2021 10:15-0400 Systolic blood pressure 160 mm[Hg] Kinsey Botello [place] Work Phone: [facility] Work Phone: 04-21-2021 14:55-0400 Body height 185.42 cm Kinsey Botello [place] Work Phone: [facility] Orthopedics and Sports Medicine 300 Work Phone: 04-21-2021 14:55-0400 Body mass index (BMI) [Ratio] 27.97 kg/m2 Kinsey Botello [place] Work Phone: [facility] Orthopedics and Sports Medicine 300 Work Phone: 04-21-2021 14:55-0400 Body surface area Derived from formula 2.21 m2 Kinsey Botello [place] Work Phone: [facility] Orthopedics and Sports Medicine 300 Work Phone: 04-21-2021 14:55-0400 Body temperature 97.7 [degF] Kinsey Botello [place] Work Phone: [facility] Orthopedics and Sports Medicine 300 Work Phone: 04-21-2021 14:55-0400 Body weight 96.16 kg Kinsey Botello [place] Work Phone: [facility] Orthopedics and Sports Medicine 300 Work Phone: 04-21-2021 14:55-0400 Diastolic blood pressure 76 mm[Hg] Kinsey Botello [place] Work Phone: [facility] Orthopedics and Sports Medicine 300 Work Phone: 04-21-2021 14:55-0400 Heart rate 84 /min Kinsey Botello [place] Work Phone: [facility] Orthopedics and Sports Medicine 300 Work Phone: 04-21-2021 14:55-0400 Systolic blood pressure 126 mm[Hg] Kinsey Botello [place] Work Phone: [facility] Orthopedics and Sports Medicine 300 Work Phone: 03-10-2021 15:05-0400 Body height 185.42 cm Kinsey S [place] Work Phone: [facility] Orthopedics and Sports Medicine 300 Work Phone: 03-10-2021 15:05-0400 Body mass index (BMI) [Ratio] 28 kg/m2 Kinsey S [place] Work Phone: [facility] Orthopedics and Sports Medicine 300 Work Phone: 03-10-2021 15:05-0400 Body surface area Derived from formula 2.21 m2 Kinsey S [place] Work Phone: [facility] Orthopedics and Sports Medicine 300 Work Phone: 03-10-2021 15:05-0400 Body temperature 96.9 [degF] Kinsey S [place] Work Phone: [facility] Orthopedics and Sports Medicine 300 Work Phone: 03-10-2021 15:05-0400 Body weight 96.28 kg Kinsey S [place] Work Phone: [facility] Orthopedics and Sports Medicine 300 Work Phone: 03-10-2021 15:05-0400 Diastolic blood pressure 60 mm[Hg] Kinsey S [place] Work Phone: [facility] Orthopedics and Sports Medicine 300 Work Phone: 03-10-2021 15:05-0400 Systolic blood pressure 116 mm[Hg] Kinsey S [place] Work Phone: [facility] Orthopedics and Sports Medicine 300 Work Phone: 02-22-2021 09:20-0400 Body height 185.42 cm Kinsey S [place] Work Phone: [facility] Work Phone: 02-22-2021 09:20-0400 Body mass index (BMI) [Ratio] 27.59 kg/m2 Kinsey Botello [place] Work Phone: [facility] Work Phone: 02-22-2021 09:20-0400 Body temperature 97.5 [degF] Kinsey Botello [place] Work Phone: [facility] Work Phone: 02-22-2021 09:20-0400 Body weight 94.86 kg Kinsey Botello [place] Work Phone: [facility] Work Phone: 02-22-2021 09:20-0400 Diastolic blood pressure 88 mm[Hg] Kinsey Botello [place] Work Phone: [facility] Work Phone: 02-22-2021 09:20-0400 Heart rate 90 /min Kinsey Botello [place] Work Phone: [facility] Work Phone: 02-22-2021 09:20-0400 SaO2% (BldA) [Mass fraction] 97 % Kinsey Botello [place] Work Phone: [facility] Work Phone: 02-22-2021 09:20-0400 Systolic blood pressure 128 mm[Hg] Kinsey Botello [place] Work Phone: [facility] Work Phone: 02-16-2021 11:13-0400 Body height 185.42 cm Kinsey Botello [place] Work Phone: [facility] 400 DO Work Phone: 02-16-2021 11:13-0400 Body mass index (BMI) [Ratio] 27.85 kg/m2 Kinsey Botello [place] Work Phone: [facility] 400 DO Work Phone: 02-16-2021 11:13-0400 Body surface area Derived from formula 2.2 m2 Kinsey Botello [place] Work Phone: [facility] 400 DO Work Phone: 02-16-2021 11:13-0400 Body temperature 97.7 [degF] Kinsey S [place] Work Phone: [facility] 400 DO Work Phone: 02-16-2021 11:13-0400 Body weight 95.77 kg Kinsey S [place] Work Phone: [facility] 400 DO Work Phone: 02-16-2021 11:13-0400 Diastolic blood pressure 68 mm[Hg] Kinsey S [place] Work Phone: [facility] 400 DO Work Phone: 02-16-2021 11:13-0400 Heart rate 92 /min Kinsey Botello [place] Work Phone: [facility] 400 DO Work Phone: 02-16-2021 11:13-0400 SaO2% (BldA) [Mass fraction] 96 % Kinsey Botello [place] Work Phone: [facility] 400 DO Work Phone: 02-16-2021 11:13-0400 Systolic blood pressure 126 mm[Hg] Kinsey S [place] Work Phone: [facility] 400 DO Work Phone: 02-03-2021 07:19-0400 Body height 185.42 cm Kinsey S [place] Work Phone: [facility] Work Phone: 02-03-2021 07:19-0400 Body mass index (BMI) [Ratio] 27.75 kg/m2 Kinsey S [place] Work Phone: [facility] Work Phone: 02-03-2021 07:19-0400 Body surface area Derived from formula 2.2 m2 Kinsey Barker Work Phone: [facility] Work Phone: 02-03-2021 07:19-0400 Body temperature 96.9 [degF] Kinsey Barker Work Phone: [facility] Work Phone: 02-03-2021 07:19-0400 Body weight 95.4 kg Kinsey Barker Work Phone: [facility] Work Phone: 02-03-2021 07:19-0400 Diastolic blood pressure 80 mm[Hg] Kinsey Barker Work Phone: [facility] Work Phone: 02-03-2021 07:19-0400 Heart rate 95 /min Kinsey Barker Work Phone: [facility] Work Phone: 02-03-2021 07:19-0400 SaO2% (BldA) [Mass fraction] 96 % Kinsey Barker Work Phone: [facility] Work Phone: 02-03-2021 07:19-0400 Systolic blood pressure 138 mm[Hg] Kinsey Barker Work Phone: [facility] Work Phone: 11-23-2020 15:20-0400 BMI (Body Mass Index) 28.7 kg/m2 Thong Mendoza [facility] Work Phone: 11-23-2020 15:20-0400 Body Temperature 96.6 [degF] Thong Mendoza [facility] [facility] Work Phone: 11-23-2020 15:20-0400 Body weight 98.69 kg [facility] Work Phone: 11-23-2020 15:20-0400 BP Diastolic 82 mm[Hg] [facility] Work Phone: 11-23-2020 15:20-0400 BP Systolic 140 mm[Hg] [facility] Work Phone: 11-23-2020 15:20-0400 BSA (Body Surface Area) 2.23 m2 [facility] Work Phone: 11-23-2020 15:20-0400 Height 185.42 cm [facility] Work Phone: 11-23-2020 15:20-0400 Pulse (Heart Rate) 87 /min [facility] Work Phone: 11-23-2020 15:20-0400 Pulse Oximetry 97 % [facility] [place] [facility] Work Phone: 11-04-2020 10:46-0500 BMI (Body Mass Index) 27.99 kg/m2 [facility] Work Phone: 11-04-2020 10:46-0500 Body Temperature 97.3 [degF] [facility] Work Phone: Encounters Encounter Date Encounter Type Care Provider Facility Start: 08-10-[address] ROBBIE GARNETT MD F acility:B Start: 06-28-2023 ambulatory KINSEY Leon ity:B Start: 04-03-2023 ambulatory PATRICE KINNEY Facility:[id number] Start: 03-03-2023 End: 03-03-2023 ambulatory PATRICE KINNEY Facility:[id number] Start: 02-14-2023 AUDIT Kinsey garg Work Phone: [facility] Work Phone: Start: 01-30-2023 Patient encounter procedure Kinsey Barker Work Phone: [facility] Work Phone: Start: 01-30-[address] Kinsey Barker Fa cility:[id number] Start: 12-13-2022 End: 12-13-[address] ROBBIE GARNETT MD Facility:B Start: 12-03-2022 End: 12-03-2022 Emergency department patient visit Lon Garvin [facility] Start: 12-02-2022 End: 12-02-[address] Kinsey Barker Facility:[id number] Start: 12-02-2022 End: 12-02-2022 Subsequent hospital visit by physician Patrice Kinney MD Work Phone: [facility] Procedures Date Procedure Procedure Detail Performing Clinician Start: 12-02-2022 RFA Unspecified body region Limited Views for therapy or embolization or infusion W contrast via existing catheter Patrice Kinney MD Work Phone: Start: 12-02-2022 Epidural steroid injection Kinsey Barker Work Phone: Plan of Treatment Date Care Activity Detail Author Start: 07-08-2027 DTaP/Tdap/Td Vaccines (2 - Td or Tdap) DTaP/Tdap/Td Vaccines (2 - Td or Tdap) [facility] Start: 07-08-2027 Tetanus vaccination [facility] Start: 05-04-2027 Lipid panel Lipid Panel [facility] Start: 04-25-2027 Screening for malignant neoplasm of colon [facility] Start: 03-28-2026 Diabetes mellitus screening Diabetes Screening [facility] Start: 04-28-2023 Influenza vaccination Influenza Vaccine (#1) [facility] Start: 04-18-2023 Patient encounter procedure [facility] Start: 04-03-2023 FUV, Provider: Patrice Kinney, Status: Pen, Time: 10:45 AM FUV, Provider: Patrice Kinney, Status: Pen, Time: 10:45 AM [facility] Work Phone: Start: 02-24-2023 FUV, Provider: Thong Mendoza, Status: Pen, Time: 1:00 PM FUV, Provider: Thong Mendoza, Status: Pen, Time: 1:00 PM -Pulmonary [facility] 400 DO Work Phone: Start: 02-24-2023 Patient encounter procedure [facility] Pulmonary [address] Start: 02-24-2023 FUV, Provider: Thong Mendoza, Status: Pen, Time: 11:40 AM FUV, Provider: Thong Mendoza, Status: Pen, Time: 11:40 AM [facility] Work Phone: Start: 11-17-2022 Patient encounter procedure [facility] Start: 11-14-2022 EPV, Provider: Kinsey Barker, Status: Pen, Time: 9:00 AM EPV, Provider: Kinsey Barker, Status: Pen, Time: 9:00 AM [facility] 400 DO Work Phone: Start: 11-14-2022 Patient encounter procedure [facility] Medicine [address] Start: 11-04-2022 SURGSMC, Provider: Patrice Kinney, Status: Pen, Time: 11:15 AM [facility]SMC, Provider: Patrice Kinney, Status: Pen, Time: 11:15 AM [facility] Work Phone: Start: 09-27-2022 FUV, Provider: Patrice Kinney, Status: Pen, Time: 1:00 PM FUV, Provider: Patrice Kinney, Status: Pen, Time: 1:00 PM [facility] Work Phone: Start: 08-30-2022 FUV, Provider: Patrice Kinney, Status: Pen, Time: 10:00 AM FUV, Provider: Patrice Kinney, Status: Pen, Time: 10:00 AM [facility] Work Phone: Start: 08-01-2022 FUV, Provider: Keyla Cartagena, Status: Pen, Time: 10:00 AM FUV, Provider: Keyla Cartagena, Status: Pen, Time: 10:00 AM [facility] Sports Medicine 300 Work Phone: Start: 08-01-2022 Patient encounter procedure [facility] Orthopedics [address] Start: 07-19-2022 COVID-19 Vaccine (5 - Pfizer series) COVID-19 Vaccine (5 - Pfizer series) [facility] Start: 06-20-2022 FUV, Provider: Silvestre Castro, Status: Pen, Time: 11:45 AM FUV, Provider: Silvestre Castro, Status: Pen, Time: 11:45 AM [facility] Work Phone: Start: 05-31-2022 Patient encounter procedure [facility] Start: 05-09-2022 EPV, Provider: Kinsey Barker, Status: Pen, Time: 9:00 AM EPV, Provider: Kinsey Barker, Status: Pen, Time: 9:00 AM [facility] Work Phone: Start: 03-07-2022 [facility],[id number], Status: Pen, Time: 8:30 AM [facility] Work Phone: Start: 03-07-2022 [facility]: Silvestre Castro, Status: Pen, Time: 8:30 AM [facility] Provider: Silvestre Castro, Status: Pen, Time: 8:30 AM [facility] Work Phone: Start: 02-23-2022 FUV, Provider: Thong Mendoza, Status: Pen, Time: 1:00 PM FUV, Provider: Thong Mendoza, Status: Pen, Time: 1:00 PM -[facility] [address] 400 DO Work Phone: Start: 02-07-2022 FUV, Provider: Patrice Kinney, Status: Pen, Time: 9:15 AM FUV, Provider: Patrice Kinney, Status: Pen, Time: 9:15 AM [facility] Work Phone: Start: 01-28-2022 FUV, Provider: Macario Martínez, Status: Pen, Time: 8:00 AM FUV, Provider: Macario Martínez, Status: Pen, Time: 8:00 AM [facility] 300 Work Phone: Start: 12-06-2021 FUV, Provider: Patrice Kinney, Status: Pen, Time: 8:45 AM FUV, Provider: Patrice Kinney, Status: Pen, Time: 8:45 AM [facility] Work Phone: Start: 11-29-2021 PTRECHECKA, Provider: Jayla Dillard, Status: Pen, Time: 8:30 AM PTRECHECKA, Provider: Jayla Dillard, Status: Pen, Time: 8:30 AM [facility] Work Phone: Start: 11-17-2021 PTFUADULT4, Provider: Karen Low, Status: Pen, Time: 8:30 AM PTFUADULT4, Provider: Karen Low, Status: Pen, Time: 8:30 AM [facility]: Start: 11-15-2021 PTFUADULT4, Provider: Karen Low, Status: Pen, Time: 8:30 AM PTFUADULT4, Provider: Karen Low, Status: Pen, Time: 8:30 AM [facility] Work Phone: Start: 11-12-2021 PTFUADULT4, Provider: Karen Low, Status: Pen, Time: 8:30 AM PTFUADULT4, Provider: Karen Low, Status: Pen, Time: 8:30 AM [facility] Work Phone: Start: 11-10-2021 PTFUADULT4, Provider: Karen Low, Status: Pen, Time: 8:30 AM PTFUADULT4, Provider: Karen Low, Status: Pen, Time: 8:30 AM [facility] Work Phone: Start: 11-08-2021 EPV, Provider: Kinsey Barker, Status: Pen, Time: 2:00 PM EPV, Provider: Kinsey Barker, Status: Pen, Time: 2:00 PM -[facility] Work Phone: Start: 11-05-2021 AQUATICFU4, Provider: Shyanne Santos, Status: Pen, Time: 8:30 AM AQUATICFU4, Provider: Shyanne Santos, Status: Pen, Time: 8:[address] [facility] Work Phone: Start: 11-03-2021 AQUATICFU4, Provider: Shyanne Santos, Status: Pen, Time: 8:30 AM AQUATICFU4, Provider: Shyanne Santos, Status: Pen, Time: 8:30 AM [facility] Work Phone: Start: 10-26-2021 FUV, Provider: Macario Martínez, Status: Pen, Time: 8:00 AM FUV, Provider: Macario Martínez, Status: Pen, Time: 8:00 AM [facility] Work Phone: Start: 10-21-2021 PTEVALADUL, Provider: Jayla Dillard, Status: Pen, Time: 9:00 AM PTEVALADUL, Provider: Jayla Dillard, Status: Pen, Time: 9:00 AM [facility] Work Phone: Start: 10-15-2021 PTEVALADUL, Provider: Lisandro Sevilla, Status: Pen, Time: 11:15 AM PTEVALADUL, Provider: Lisandro Sevilla, Status: Pen, Time: 11:15 AM [facility] Work Phone: Start: 08-24-2021 FUV, Provider: Thong Mendoza, Status: Pen, Time: 1:00 PM FUV, Provider: Thong Mendoza, Status: Pen, Time: 1:00 PM [facility] Work Phone: Start: 08-23-2021 FUV, Provider: Thong Mendoza, Status: Pen, Time: 1:00 PM FUV, Provider: Thong Mendoza, Status: Pen, Time: 1:00 PM -Pulmonary Medicine[address] Work Phone: Start: 06-24-2021 FUV, Provider: Thong Mendoza, Status: Pen, Time: 10:00 AM FUV, Provider: Thong Mendoza, Status: Pen, Time: 10:00 AM [facility] Phone: Start: 06-01-2021 FUV, Provider: Macario Martínez, Status: Pen, Time: 9:30 AM FUV, Provider: Macario Martínez, Status: Pen, Time: 9:30 AM [facility] Work Phone: Start: 05-27-2021 FUV, Provider: Thong Mendoza, Status: Pen, Time: 11:30 AM FUV, Provider: Thong Mendoza, Status: Pen, Time: 11:30 AM [facility] Work Phone: Start: 05-24-2021 EPV, Provider: Kinsey Barker, Status: Pen, Time: 10:20 AM EPV, Provider: Kinsey Barker, Status: Pen, Time: 10:20 AM [facility] Work Phone: Start: 04-21-2021 FUV, Provider: Macario Martínez, Status: Pen, Time: 3:00 PM FUV, Provider: Macario Martínez, Status: Pen, Time: 3:00 PM [facility] Work Phone: Start: 04-06-2021 FUV, Provider: Macario Martínez, Status: Pen, Time: 9:00 AM FUV, Provider: Macario Martínez, Status: Pen, Time: 9:00 AM [facility] Work Phone: Start: 03-10-2021 NPV, Provider: Macario Martínez, Status: Pen, Time: 3:00 PM NPV, Provider: Macario Martínez, Status: Pen, Time: 3:00 PM [facility] Work Phone: Start: 02-22-2021 FUV, Provider: Kinsey Barker, Status: Pen, Time: 9:20 AM FUV, Provider: Kinsey Barker, Status: Pen, Time: 9:20 AM [facility] Work Phone: Start: 02-19-2021 Pneumococcal vaccination Pneumococcal Vaccine Age 65+ (2 of 2 - PPSV23) [facility] Start: 02-19-2021 Pneumococcal Vaccine: 65+ Years (2 - PPSV23 or PCV20) Pneumococcal Vaccine: 65+ Years (2 - PPSV23 or PCV20) [facility] Start: 05-25-2020 Comprehensive metabolic 2000 panel - Serum or Plasma Comprehensive Metabolic Panel [facility] Work Phone: Start: 05-25-2020 Lipid panel Lipid Panel [facility] Work Phone: Start: 05-25-2020 Testosterone [Mass/volume] in Serum or Plasma Testosterone Free + Total [facility] Work Phone: Start: 04-28-2020 Influenza vaccination given Sequential Influenza Vaccine (#1) [facility] Start: 04-09-2020 End: 04-09-2020 Office Visit 04/09/2020 Office Visit Pulmonology Janis Sinclair MD [address] [place] [address] [phone] [facility] Start: 10-10-2019 End: 10-10-2019 Office Visit 10/10/2019 Office Visit Pulmonology Janis Sinclair MD [address] [place] [address] [phone] [facility] Start: 10-03-2019 End: 10-03-2019 Appointment [facility] Start: 04-28-2019 Influenza vaccination given SEQUENTIAL INFLUENZA VACCINE (#1) [facility] Start: 2018 Pneumococcal vaccination PNEUMOCOCCAL VACCINE AGE 65+ (1 of 2 - PCV13) [facility] Start: 11-26-2003 Administration of herpes zoster vaccine Zoster Vaccines (1 of 2) [facility] Start: 11-26-2003 Screening for malignant neoplasm of colon [facility] Start: 11-26-2003 Zoster Vaccines (1 of 2) Zoster Vaccines (1 of 2) [facility] Start: 11-26-1971 Hepatitis C antibody, confirmatory test Hepatitis C Screening [facility] Start: 11-26-1971 Hepatitis C screening Hepatitis C Screening [facility] Start: 1969 COVID-19 Vaccine (1 of 2) COVID-19 Vaccine (1 of 2) [facility] Start: 1965 Adolescent depression screening assessment Depression Screening (PHQ9) [facility] Start: 1956 History and physical examination, annual for health maintenance Wellness Visit [facility] Start: 1953 Depression screening using PHQ-9 (Patient Health Questionnaire 9) score DEPRESSION SCREENING (PHQ9) [facility] Start: 1953 Fall risk assessment Falls Risk Assessment [facility] Start: 1953 Hepatitis C antibody, confirmatory test HEPATITIS C SCREENING [facility] Start: 1953 Medicare Annual Wellness Visit Medicare Annual Wellness Visit (AWV) [facility] Start: 1953 Prostate specific antigen measurement PSA Level [facility] Start: 1953 Screening for malignant neoplasm of colon [facility] Start: 1953 Tetanus vaccination TETANUS EVERY 10 YR [facility] 0.5 ml streptococcus pneumoniae serotype 1 capsular antigen diphtheria [id number] protein conjugate vaccine 0.0044 mg/ml / streptococcus pneumoniae serotype 14 capsular antigen diphtheria ulf551 protein conjugate vaccine 0.0044 mg/ml / streptococcus pneumoniae serotype 18c capsular antigen diphtheria [id number] protein conjugate vaccine 0.0044 mg/ml / streptococcus pneumoniae serotype 19a capsular antigen diphtheria epu212 protein conjugate vaccine 0.0044 mg/ml / streptococcus pneumoniae serotype 19f capsular antigen diphtheria [id number] protein conjugate vaccine 0.0044 mg/ml / streptococcus pneumoniae serotype 23f capsular antigen diphtheria ohl553 protein conjugate vaccine 0.0044 mg/ml / streptococcus pneumoniae serotype 3 capsular antigen diphtheria [id number] protein conjugate vaccine 0.0044 mg/ml / streptococcus pneumoniae serotype 4 capsular antigen diphtheria [id number] protein conjugate vaccine 0.0044 mg/ml / streptococcus pneumoniae serotype 5 capsular antigen diphtheria cho297 protein conjugate vaccine 0.0044 mg/ml / streptococcus pneumoniae serotype 6a capsular antigen diphtheria ejq987 protein conjugate vaccine 0.0044 mg/ml / streptococcus pneumoniae serotype 6b capsular antigen diphtheria wyh807 protein conjugate vaccine 0.0088 mg/ml / streptococcus pneumoniae serotype 7f capsular antigen diphtheria khd071 protein conjugate vaccine 0.0044 mg/ml / streptococcus pneumoniae serotype 9v capsular antigen diphtheria dyp452 protein conjugate vaccine 0.0044 mg/ml prefilled syringe Prevnar 13 Intramuscular Suspension 0.5ml IM Ordered: 20-Feb-2020 Active [facility] Work Phone: Blood count complete auto&auto difrntl wbc Complete Blood Count + Differential [facility] Work Phone: Immunizations Immunization Date Immunization Notes Care Provider Chepe fonseca 05-24-2022 Fluad Quadrivalent 0 .5 ML Intramuscular Prefilled Syringe [employer] Work Phone: [facility]Note 2[facility] Work Phone: 05-24-2022 Moderna COVID-19 Biv al Booster 50 MCG/0.5ML Intramuscular Suspension [employer] Work Phone: [facility] [employer] [facility][Note 2] Work Phone: 05-24-2022 influenza virus vaccine, unspecified formulation Patrice Kinney MD Work Phone: [facility] Work Phone: 12-01-2021 Comirnaty 30 MCG/0.3 ML Intramuscular Suspension Kinsey Botello [place] Work Phone: [id number] Work Phone: 12-01-2021 SARS-CoV-2, Unspecified Cristobal Kinney MD Work Phone: [facility] Work Phone: 06-25-2021 Pfizer-BioNTech COVID-19 Vacc 30 MCG/0.3ML Intramuscular Suspension Kinsey Botello [place] Work Phone: [facility] Payers Date Payer Category Payer Medicare MEDICARE MEDICAR E PART A & B xxxxxxxxxxx 2018-Present [place] xxxxxxxxxxx [id number] 2018 Medicare [id number] 2018 Medicare MEDICARE MEDICAR E PART A & B [id number] 2018-Present [place] [id number] 2018 Medicare [id number] [id number] 2018 Unknown [employer] [employer] [employer] xxxxxxxxxxxx 2018-Present xxxxxxxxxxxx [id number] 2018 Unknown [employer] [place] [employer] [id number] 2018-Present [id number] .[id number] 2018 Unknown 2015 Unknown [id number] 1953 Unknown [id number] 2.16.840.1.682904.3.579.2.903 1953 Unknown [id number] 2.16.840.1.451047.3.579.2.903 1953 Unknown [id number] 2.16.840.1.101917.3.579.2.903 1953 Unknown [id number] 2.16.840.1.149627.3.579.2.903 1953 Unknown [id number] 2.16.840.1.041813.3.579.2.903 1953 Unknown [id number] 2.16.840.1.248243.3.579.2.903 1953 Unknown [id number] 2.16.840.1.398080.3.579.2.356 1953 Unknown [id number] 2.16.840.1.002347.3.579.2.356 1953 Unknown [id number] 2.16.840.1.255251.3.579.2.356 1953 Unknown [id number] 2.16.840.1.169993.3.579.2.356 1953 Unknown [id number] 2.16.840.1.057761.3.579.2.356 1953 Unknown [id number] 2.16.840.1.923458.3.579.2.106 9 1953 Unknown [id number] 2.16.840.1.476926.3.579.2.106 9 1953 Unknown [id number] 2.16.840.1.832199.3.579.2.106 9 1953 Unknown [id number] 2.16.840.1.459786.3.579.2.106 9 1953 Unknown [id number] 2.16.840.1.051191.3.579.2.106 9 1953 Unknown [id number] 2.16.840.1.932102.3.579.2.106 9 1953 Unknown [id number] 2.16.840.1.573147.3.579.2.106 9 1953 Unknown [id number] 2.16.840.1.325396.3.579.2.106 9 1953 Unknown [id number] 2.16.840.1.873911.3.579.2.106 9 1953 Unknown [id number] 2.16.840.1.725930.3.579.2.106 9 1953 Unknown [id number] 2.16.840.1.685791.3.579.2.106 9 1953 Unknown [id number] 2.16.840.1.752283.3.579.2.106 9 1953 Unknown [id number] 2.16.840.1.049729.3.579.2.106 9 1953 Unknown [id number] 2.16.840.1.365431.3.579.2.627 1953 Unknown [id number] 2.16.840.1.107854.3.579.2.627 1953 Unknown [id number] 2.16.840.1.817327.3.579.2.627 1953 Unknown [id number] 2.16.840.1.656507.3.579.2.627 1953 Unknown [id number] 2.16.840.1.717998.3.579.2.627 Social History Date Type Detail Facility Start: 08-22-2019 End: 2022 Tobacco smoking status PRIS Never smoker [facility] Start: 08-22-2019 End: 05-14-2020 Alcohol intake Current drinker of alcohol (finding) [facility] Start: 12-01-2015 Alcohol Comment 3 -4 drinks per week [facility] Start: 1955 Sex Assigned At Not on file [facility] Start: 05-14-2020 Tobacco use and exposure Never used [facility] Exposure to SARS-CoV-2 (event) Not sure [facility] Non-smoker [facility] Work [facility]: Start: 10-01-2022 Tobacco smokin g consumption unknown [facility] Sex Assigned At Male [facility] Gender identity Not on file [facility] Work Phone: Functional Status Date Assessment Result Facility 2022 Functional Status Sensory Deficits None [facility] NEGATED: Highlighted row Functional performance Functional status health issues are not documented [facility] Work Phone: Mental Status Date Assessment Result Facility NEGATED: Highlighted row Cognitive function [Interpretation] Cognitive status health issues are not documented [facility] Work Phone: Clinical Notes 08-01-2020 to 03-04-2023 Op Note - Patrice Kinney MD - 12/02/2022 3:26 PM EDTOp Note - Patrice Kinney MD - 12/02/2022 3:26 PM EDT Note Date & Type Note Facility 03-04-2023 Note PROCEDURE DETAILS Preoperative Diagnosis: Radiculopathy, lumbosacral region, M54.17 Postoperative Diagnosis: Radiculopathy, lumbosacral region, M54.17 Surgeon: Patrice Kinney Resident/Fellow/Other Mushroom Picker: None of these were associated with this case Procedure: 1. L4-L5 SEKOU Anesthesia: No anesthesiologist associated with this case Estimated Blood Loss: 0 Findings: NA Additional Details: The patient has a greater than 2-month history of severe low back and leg pain. The patient has previously had 6 weeks of conservative management with exercise therapy and medications. The patient is compliant with home exercises for this issue. The pain significantly interrupts the patient's physical function. The patient does not desire spine surgery. The patient had undergone a previous epidural injection at the same level and obtained greater than 60% pain relief and functional improvement for at least 3 months. His imaging is notable for severe spinal stenosis at L3-L4. He cannot stand for 30 minutes due to the pain. Operative Report: Procedure: Interlaminar lumbar epidural steroid injection under fluoroscopic guidance at the L4-L5 interspace Diagnosis: Lumbosacral radiculopathy Solution: 1 mL of Kenalog 40 mg, 2 mL of lidocaine 2%, 5 mL normal saline, 8 mL total volume Total contrast: 2 mL Omnipaque Anesthesia: Local Complications: None After informed consent was obtained, the patient was brought to the OR and placed in the prone position. The area in question was prepped and draped in sterile fashion. An AP fluoroscopic view of the lumbar spine was obtained and after 5 mL of lidocaine 1% was injected into the skin, a 17-gauge Touhy needle was inserted into the skin and advanced toward the L4-L5 interspace under intermittent fluoroscopic guidance. The epidural space was identified via loss of resistance to air. Proper needle position was confirmed by AP and lateral fluoroscopy. Contrast was administered under live fluoroscopy and demonstrated appropriate epidural uptake and the absence of any intravascular or intrathecal spread. The local anesthetic steroid solution was then injected incrementally. The needle was removed. Bleeding was minimal. The patient tolerated the procedure well and was transferred to the recovery room in good condition. Attestation: Note Completion: Attending AttestationI performed the procedure without a resident Electronic Signatures: Patrice Kinney) (Signed 03-Mar-2023 22:30) Authored: Post-Operative Note, Chart Review, Note Completion Last Updated: 03-Mar-2023 22:30 by Patrice Kinney) [facility] 12-02-2022 Note PROCEDURE DETAILS Preoperative Diagnosis: Radiculopathy, lumbosacral region, M54.17 Postoperative Diagnosis: Radiculopathy, lumbosacral region, M54.17 Surgeon: Patrice Kinney Resident/Fellow/Other Mushroom Picker: None of these were associated with this case Procedure: 1. L4-5 SEKOU Anesthesia: No anesthesiologist associated with this case Estimated Blood Loss: 0 Findings: NA Additional Details: The patient has a greater than 2-month history of severe low back and leg pain. The patient has previously had 6 weeks of conservative management with exercise therapy and medications. The patient is compliant with home exercises for this issue. The pain significantly interrupts the patient's physical function. The patient does not desire spine surgery. The patient had undergone a previous epidural injection and obtained greater than 60% pain relief and functional improvement for at least 3 months. During that time he could stand and walk indefinitely without pain. Now that his symptoms have returned and he can only stand for 10 minutes without pain. His imaging is notable for severe central stenosis at L3-4 which correlates with his symptoms. Operative Report: Procedure: Interlaminar lumbar epidural steroid injection under fluoroscopic guidance at the L4-L5 interspace Diagnosis: Lumbosacral radiculopathy Solution: 1 mL of Kenalog 40 mg, 2 mL of lidocaine 2%, 5 mL normal saline, 8 mL total volume Total contrast: 2 mL Omnipaque Anesthesia: Local Complications: None After informed consent was obtained, the patient was brought to the OR and placed in the prone position. The area in question was prepped and draped in sterile fashion. An AP fluoroscopic view of the lumbar spine was obtained and after 5 mL of lidocaine 1% was injected into the skin, a 17-gauge Touhy needle was inserted into the skin and advanced toward the L4-5 interspace under intermittent fluoroscopic guidance. The epidural space was identified via loss of resistance to air. Proper needle position was confirmed by AP and lateral fluoroscopy. Contrast was administered under live fluoroscopy and demonstrated appropriate epidural uptake and the absence of any intravascular or intrathecal spread. The local anesthetic steroid solution was then injected incrementally. The needle was removed. Bleeding was minimal. The patient tolerated the procedure well and was transferred to the recovery room in good condition. Attestation: Note Completion: Attending AttestationI performed the procedure without a resident Electronic Signatures: Patrice Kinney) (Signed 02-Dec-2022 21:34) Authored: Post-Operative Note, Chart Review, Note Completion Last Updated: 02-Dec-2022 21:34 by Patrice Kinney) [facility] 12-02-2022 Miscellaneous Notes PROCEDURE DETAILS Preoperative Diagnosis: Radiculopathy, lumbosacral region, M54.17 Postoperative Diagnosis: Radiculopathy, lumbosacral region, M54.17 Surgeon: Patrice Kinney Resident/Fellow/Other Mushroom Picker: None of these were associated with this case Procedure: 1. L4-5 SEKOU Anesthesia: No anesthesiologist associated with this case Estimated Blood Loss: 0 Findings: NA Additional Details: The patient has a greater than 2-month history of severe low back and leg pain. The patient has previously had 6 weeks of conservative management with exercise therapy and medications. The patient is compliant with home exercises for this issue. The pain significantly interrupts the patient's physical function. The patient does not desire spine surgery. The patient had undergone a previous epidural injection and obtained greater than 60% pain relief and functional improvement for at least 3 months. During that time he could stand and walk indefinitely without pain. Now that his symptoms have returned and he can only stand for 10 minutes without pain. His imaging is notable for severe central stenosis at L3-4 which correlates with his symptoms. Operative Report: Procedure: Interlaminar lumbar epidural steroid injection under fluoroscopic guidance at the L4-L5 interspace Diagnosis: Lumbosacral radiculopathy Solution: 1 mL of Kenalog 40 mg, 2 mL of lidocaine 2%, 5 mL normal saline, 8 mL total volume Total contrast: 2 mL Omnipaque Anesthesia: Local Complications: None After informed consent was obtained, the patient was brought to the OR and placed in the prone position. The area in question was prepped and draped in sterile fashion. An AP fluoroscopic view of the lumbar spine was obtained and after 5 mL of lidocaine 1% was injected into the skin, a 17-gauge Touhy needle was inserted into the skin and advanced toward the L4-5 interspace under intermittent fluoroscopic guidance. The epidural space was identified via loss of resistance to air. Proper needle position was confirmed by AP and lateral fluoroscopy. Contrast was administered under live fluoroscopy and demonstrated appropriate epidural uptake and the absence of any intravascular or intrathecal spread. The local anesthetic steroid solution was then injected incrementally. The needle was removed. Bleeding was minimal. The patient tolerated the procedure well and was transferred to the recovery room in good condition. Attestation: Note Completion: Attending Attestation I performed the procedure without a resident Electronic Signatures: Patrice Kinney) (Signed 02-Dec-2022 21:34) Authored: Post-Operative Note, Chart Review, Note Completion Last Updated: 02-Dec-2022 21:34 by Patrice Kinney () documented in this encounter [facility] Work Phone: 12-02-2022 Note Formatting of this n ote is different from the original. PROCEDURE DETAILS Preoperative Diagnosis: Radiculopathy, lumbosacral region, M54.17 Postoperative Diagnosis: Radiculopathy, lumbosacral region, M54.17 Surgeon: Patrice Kinney Resident/Fellow/Other Mushroom Picker: None of these were associated with this case Procedure: 1. L4-5 SEKOU Anesthesia: No anesthesiologist associated with this case Estimated Blood Loss: 0 Findings: NA Additional Details: The patient has a greater than 2-month history of severe low back and leg pain. The patient has previously had 6 weeks of conservative management with exercise therapy and medications. The patient is compliant with home exercises for this issue. The pain significantly interrupts the patient's physical function. The patient does not desire spine surgery. The patient had undergone a previous epidural injection and obtained greater than 60% pain relief and functional improvement for at least 3 months. During that time he could stand and walk indefinitely without pain. Now that his symptoms have returned and he can only stand for 10 minutes without pain. His imaging is notable for severe central stenosis at L3-4 which correlates with his symptoms. Operative Report: Procedure: Interlaminar lumbar epidural steroid injection under fluoroscopic guidance at the L4-L5 interspace Diagnosis: Lumbosacral radiculopathy Solution: 1 mL of Kenalog 40 mg, 2 mL of lidocaine 2%, 5 mL normal saline, 8 mL total volume Total contrast: 2 mL Omnipaque Anesthesia: Local Complications: None After informed consent was obtained, the patient was brought to the OR and placed in the prone position. The area in question was prepped and draped in sterile fashion. An AP fluoroscopic view of the lumbar spine was obtained and after 5 mL of lidocaine 1% was injected into the skin, a 17-gauge Touhy needle was inserted into the skin and advanced toward the L4-5 interspace under intermittent fluoroscopic guidance. The epidural space was identified via loss of resistance to air. Proper needle position was confirmed by AP and lateral fluoroscopy. Contrast was administered under live fluoroscopy and demonstrated appropriate epidural uptake and the absence of any intravascular or intrathecal spread. The local anesthetic steroid solution was then injected incrementally. The needle was removed. Bleeding was minimal. The patient tolerated the procedure well and was transferred to the recovery room in good condition. Attestation: Note Completion: Attending Attestation I performed the procedure without a resident Electronic Signatures: Patrice Kinney) (Signed 02-Dec-2022 21:34) Authored: Post-Operative Note, Chart Review, Note Completion Last Updated: 02-Dec-2022 21:34 by Patrice Kinney) [facility] Work Phone: 10-17-2022 Note Clinic Note: Education Assessment: Learning BarriersNo barriers TaughtPatient Primary Language of PatientEnglish Primary Language of Marques LearnerEnglish Clinic Visit: Topic(s): Clinic VisitFollow-up plan MethodVerbal, Teach-Back, Handout EvaluationTeaches back Nursing Note: Nursing NotePt set for cbc on 01/16 and labs on 04/17. rtc for f/u with GENERAL INTERNAL MEDICINE PHYSICIAN on 04/18 at 8am Electronic Signatures: Robyn Vazquez (SHAMA) (Signed 17-Oct-2022 13:32) Authored: Education Assessment, Clinic Visit, Nursing Note Last Updated: 17-Oct-2022 13:32 by Robyn Vazquez) [facility] 09-27-2022 History of Present illness Narrative On a scale of 0 to 10, the patient rates the pain at 0.4/10 in cecilio shoulders/hands.Pain Location: Low Back Pain.Pain Quality: dull pains in shoulders/hands; occasional sharp/stabbing pains in shoulders and hands.Timing/Duration: Intermittent and > 12 weeks duration.Goals for Pain Management:ALEX = 4. [facility] Work Phone: 08-26-2022 Note PROCEDURE DETAILS Preoperative Diagnosis: Radiculopathy, lumbosacral region, M54.17 Postoperative Diagnosis: Radiculopathy, lumbosacral region, M54.17 Surgeon: Patrice Kinney Resident/Fellow/Other Mushroom Picker: None of these were associated with this case Procedure: 1. L4-5 SEKOU Anesthesia: No anesthesiologist associated with this case Estimated Blood Loss: 0 Findings: NA Additional Details: The patient has a 10 -month history of low back and leg pain. The patient has failed conservative management with physical therapy and anti-inflammatory medications. The pain significantly interrupts the patient's physical function. His MRI was notable for severe central stenosis at L3-4 which correlates with his symptoms. The patient was seen by spine surgery and advised to exhaust conservative measures prior to pursuing surgery. The patient does not desire spine surgery. Operative Report: Procedure: Interlaminar lumbar epidural steroid injection under fluoroscopic guidance at the L4-L5 interspace Diagnosis: Lumbosacral radiculopathy Solution: 1 mL of Kenalog 40 mg, 2 mL of lidocaine 2%, 5 mL normal saline, 8 mL total volume Total contrast: 2 mL Omnipaque Anesthesia: Local Complications: None After informed consent was obtained, the patient was brought to the OR and placed in the prone position. The area in question was prepped and draped in sterile fashion. An AP fluoroscopic view of the lumbar spine was obtained and after 5 mL of lidocaine 1% was injected into the skin, a 17-gauge Touhy needle was inserted into the skin and advanced toward the L4-5 interspace under intermittent fluoroscopic guidance. The epidural space was identified via loss of resistance to air. Proper needle position was confirmed by AP and lateral fluoroscopy. Contrast was administered under live fluoroscopy and demonstrated appropriate epidural uptake and the absence of any intravascular or intrathecal spread. The local anesthetic steroid solution was then injected incrementally. The needle was removed. Bleeding was minimal. The patient tolerated the procedure well and was transferred to the recovery room in good condition. Attestation: Note Completion: Attending AttestationI performed the procedure without a resident Electronic Signatures: Patrice Kinney) (Signed 26-Aug-2022 16:12) Authored: Post-Operative Note, Chart Review, Note Completion Last Updated: 26-Aug-2022 16:12 by Patrice Kinney) [facility] 05-31-2022 History of Present illness Narrative On a scale of 0 to 10, the patient rates the pain at 0.Pain Location: Low Back Pain and RIGHT.Pain Quality: Stabbing. ImprovedExacerbating Factors: rest and sitting.Alleviating Factors: Medications, Repositioning.24 Hour Behavior:Symptoms are better in the am.Symptoms are better as the day progresses.Symptoms are better in the pm.Symptoms are better lying down. [facility] Work Phone: 05-06-2022 Note Clinic Note: Education Assessment: Learning BarriersNo barriers TaughtPatient Primary Language of PatientEnglish Primary Language of Marques LearnerEnglish Clinic Visit: Topic(s): Clinic VisitFollow-up plan MethodVerbal, Teach-Back, Handout EvaluationTeaches back Nursing Note: Nursing Notept to get labs every 3 months at the hosp. 08/15 and 11/14. rtc 11/17 8am Electronic Signatures: Robyn Vazquez (RN) (Signed 06-May-2022 08:34) Authored: Education Assessment, Clinic Visit, Nursing Note Last Updated: 06-May-2022 08:34 by Robyn Vazquez (SHAMA) [facility] 03-03-2022 History of Present illness Narrative Patient was seen today in the office on a 6-month follow-up visit for his asthma. He reports that he is not been having any problems with his breathing over the past period of time. He has Breo 100/25 daily and a ProAir inhaler that he can use at 2 puffs 4 times daily as needed shortness of breath. He seldom uses the ProAir inhaler.Patient denies any cough or sputum production and no wheezing. He is not having any dyspnea with activities of daily living. -Pulmonary Medicine[address] Work Phone: 02-25-2022 History of Present illness Narrative Mr. Yadav is a 66-year-old man with a history of low back pain who I initially saw in February of this year. He denies any significant leg pain and has no difficulty with bowel or bladder. He has been evaluated by Dr. Kinney for possible intervention. At this time Mr. Yadav states that with PT the vast majority of his pain has resolved. He does have occasional pain, but notes it is on the left side, and never the right.At our first visit, I discussed the radiological and clinical findings with Mr. Yadav. 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 Since his occasional leg pain is on the contralateral side, I did not think any intervention for the cyst was warranted at that time.He saw Dr. Kinney on May 31 who noted that since he was doing well at this time we can hold off on interventional treatments. [facility] Work Phone: 02-25-2022 History of Present illness Narrative Patient was seen today in the office on a 6-month follow-up visit for his asthma. He reports that he is not been having any problems with his breathing over the past period of time. He has Breo 100/25 daily and a ProAir inhaler that he can use at 2 puffs 4 times daily as needed shortness of breath. He seldom uses the ProAir inhaler.Patient denies any cough or sputum production and no wheezing. He is not having any dyspnea with activities of daily living. -Pulmonary Medicine-[facility] [email or web address] Work Phone: 02-23-2022 History of Present illness Narrative Patient was seen today in the office on a 6-month follow-up visit for his asthma. He reports that he is not been having any problems with his breathing over the past period of time. He has Breo 100/25 daily and a ProAir inhaler that he can use at 2 puffs 4 times daily as needed shortness of breath. He seldom uses the ProAir inhaler.Patient denies any cough or sputum production and no wheezing. He is not having any dyspnea with activities of daily living. -Pulmonary Medicine-[facility] [email or web address] Work Phone: 02-07-2022 History of Present illness Narrative On a scale of 0 to 10, the patient rates the pain at 0.today but 5/10 yesterday.Pain Location: Low Back Pain and bilat sides.Pain Quality: Sharp and Stabbing.Pain Radiation: none recently.Sensory/ Motor: Weakness and in bilat legs with inccreased pain.Timing/Duration: Intermittent and > 12 weeks duration. [facility] Work Phone: 01-17-2022 History of Present illness Narrative On a scale of 0 to 10, the patient rates the pain at 0.Pain Location: Low Back Pain.Pain Quality: Sharp.Sensory/ Motor: Weakness and LEGS-FEELS LIKE THEY WILL COME OUT FROM BENEATH HIM AFTER SITTING TOO LONG.Timing/Duration: Intermittent and > 12 weeks duration.Exacerbating Factors: sitting and AFTER EXERCISE.Alleviating Factors: Exercise, Repositioning.24 Hour Behavior:Symptoms are the same in the am. DEPENDING ON ACTIVITY.Symptoms are the same as the day progresses. DEPENDING ON ACTIVITY.Symptoms are the same in the pm. DEPENDING ON ACTIVITY.Symptoms are the same when lying down. DEPENDING ON ACTIVITY. [facility] [employer] Work Phone: 12-06-2021 History of Present illness Narrative On a scale of 0 to 10, the patient rates the pain at 0.Pain Location: Low Back Pain. [employer] Work Phone: 10-11-2021 History of Present illness Narrative On a scale of 0 to 10, the patient rates the pain at 7.Pain Location: Low Back Pain and bilat sides.Pain Quality: Sharp and Shooting.Pain Radiation: lt posterior lateral thigh.Sensory/ Motor: Weakness and bilat legs with standing an walking resoves with waking taking longer to resolve.Timing/Duration: Intermittent and > 12 weeks duration.Exacerbating Factors: getting up from couch.Alleviating Factors: Medications, Other: ___.24 Hour Behavior:Symptoms are the same in the am.Symptoms are the same as the day progresses.Symptoms are the same in the pm.Symptoms are the same when lying down.Effect of Movement on Symptoms:Rising from sitting makes symptoms worse. only has pain with this action.Self Management Tools: patient is using exercise with positive response.Goals for Pain Management:Opioid Risk score = 3. [employer] [employer] Work Phone: 05-28-2021 History of Present illness Narrative Patient is a pleasant 65-year-old male presenting today for follow up regarding his bilateral shoulder pain. He is accompanied by his . Patient last underwent corticosteroid injection for the right shoulder in May of 2021. He states he tolerated the last injection well, but has become quite symptomatic again. He would like to do repeat injections today for bilateral shoulders today.Additionally, patient states he fell on the ice last week, specifically on his right side, and has been experiencing significant pain since. He reports a pain in his side that has been constant, in which he thinks is a muscle pain. He went to for rehab in which his right side was very painful during the session. He is requesting to also try a corticosteroid injection for his right hip today. -[facility] Work Phone: 05-17-2021 History of Present illness Narrative Patient was seen today in the office on a follow-up visit. This is primarily reviewed with the patient his CT scans. I personally reviewed the CT from 05/17/2021 versus the study from 08/16/2021. The groundglass infiltrates seen in April have resolved on the current studies. There is a infiltrate noted in the right lower lobe which suggests probably some inflammation in a bronchiole. Other than this the remainder of the infiltrates seen on studies from 05/17/2021 are not present on this study. Patient denies any changes in his symptoms. Feels good. He has had no cough or fevers. I reviewed with him the fleeting changes noted on his CT scans and that these are more indicative of areas of inflammation as opposed to nodules that are growing larger in size. Patient denies having any wheezing and no hemoptysis. Patient remains on Breo 100/25 daily and albuterol inhaler at 2 puffs twice daily as needed shortness of breath. [facility] DO Work Phone: 02-17-2021 History of Present illness Narrative This patient was seen today in the office on a follow-up visit. He was accompanied by his , Bertha. I have seen him in the past for treatment of his asthma. On this occasion I was asked to see him slightly earlier than his scheduled follow-up because of a finding of some lung nodules on a cardiac CT scan done on 02/17/2021. Besides the nodules there was also a groundglass infiltrate measuring less than 5 mm noted in the left upper lobe. Patient subsequently had a follow-up CT scan without contrast done on 05/17/2021. The scan showed an irregular infiltrate in the lingula measuring 15 mm x 9 mm which was not seen on the previous scan from 3 months ago which covered the same area. It was noted that there was a bronchus present through the center of this area with no evidence of obstruction or distortion. There is also been referral to a pleural-based rectangular shaped change in the right middle lobe which appears to represent some thickening of the pleural tissue. Patient himself is without any significant respiratory complaints. His asthma has been fairly well controlled with the Breo 100/25 daily. He reports that generally he only uses the albuterol inhaler prior to exercise but that there are generally about 2 times per week that he feels as though he is more short of breath and will use the albuterol then. These episodes are not related to anything specific that the patient can recall. Patient's peak flow today was 570 L/min and was 580 on the previous visit. He does have a peak flow meter at home. [facility]ITALPulmonary MedicineL[place] [id number] DO Work Phone: 02-17-2021 History of Present illness Narrative This patient was seen today in the office on a follow-up visit. He was accompanied by his , Bertha. I have seen him in the past for treatment of his asthma. On this occasion I was asked to see him slightly earlier than his scheduled follow-up because of a finding of some lung nodules on a cardiac CT scan done on 02/17/2021. Besides the nodules there was also a groundglass infiltrate measuring less than 5 mm noted in the left upper lobe. Patient subsequently had a follow-up CT scan without contrast done on 05/17/2021. The scan showed an irregular infiltrate in the lingula measuring 15 mm x 9 mm which was not seen on the previous scan from 3 months ago which covered the same area. It was noted that there was a bronchus present through the center of this area with no evidence of obstruction or distortion. There is also been referral to a pleural-based rectangular shaped change in the right middle lobe which appears to represent some thickening of the pleural tissue. Patient himself is without any significant respiratory complaints. His asthma has been fairly well controlled with the Breo 100/25 daily. He reports that generally he only uses the albuterol inhaler prior to exercise but that there are generally about 2 times per week that he feels as though he is more short of breath and will use the albuterol then. These episodes are not related to anything specific that the patient can recall. Patient's peak flow today was 570 L/min and was 580 on the previous visit. He does have a peak flow meter at home. [facility]ITALP[facility] [place] [id number] DO Work Phone: 02-10-2021 History of Present illness Narrative I saw this patient on a earlier than scheduled follow-up appointment today. He reports that for a few days last week when there was higher heat and humidity that he felt more short of breath and had a cough. He did find it necessary to take an extra dose of his albuterol inhaler in the afternoon which resolved the shortness of breath issue but he still had some problems with a mild cough. He currently takes Claritin 24 tablets each morning. He does not have a peak flow meter to monitor that number.He denies any problems with sputum and is not appreciating any wheezing. He is not awakening at nighttime with shortness of breath. He is non-smoker. [place] [address] DO Work Phone: 02-09-2021 History of Present illness Narrative I saw this patient on a earlier than scheduled follow-up appointment today. He reports that for a few days last week when there was higher heat and humidity that he felt more short of breath and had a cough. He did find it necessary to take an extra dose of his albuterol inhaler in the afternoon which resolved the shortness of breath issue but he still had some problems with a mild cough. He currently takes Claritin 24 tablets each morning. He does not have a peak flow meter to monitor that number.He denies any problems with sputum and is not appreciating any wheezing. He is not awakening at nighttime with shortness of breath. He is non-smoker. [place] [address] DO Work Phone: 08-01-2020 History of Present illness Narrative Agree with with exception patient is having increasing bilateral shoulder pain, worse with activity. Negrita is a pleasant 66-year-old male established in the practice, however he is new to me today. The patient has been getting cortisone injections over the last couple years. He is noticing decreasing effectiveness over time. He used to get 6 months of relief from an injection, and currently he gets about 3 months of relief. Patient was referred to [facility] and had an appointment there on 06/17/2022, they repeated a right shoulder x-ray and recommended reverse shoulder replacement. He is awaiting a return call from the clinic for an anticipated surgery date of 09/12/2022. Patient also has left shoulder pain that is ongoing with abnormal MRI results from 04/16/2021. Patient is left-hand dominant and is interested in pursuing the surgical option of the right shoulder.Last inj 3 months ago. R shoulder worse than L with no new injuries other than pulling the sheet up in the bed causing a sharp stabbing pain to the anterior shoulder joint. [facility] 300 Work Phone: Chief complaint Narrative - Reported An interactive audio and video telecommunication system which permits real time communications between the patient (at the originating site) and provider (at the distant site) was utilized to provide this telehealth service.Synovial cyst of lumbar spine [facility] Work Phone: Evaluation + Plan note Future Appointments [facility] documented in this encounter [facility] Work Phone: History of Present illness Narrative* The patient is being seen for the subsequent annual wellness visit. * Past Medical, Surgical and Family History: reviewed and updated in chart. * Medications and Supplements: Medications and supplements, including calcium and vitamins reviewed and updated in chart. * No, the patient is not using opioids. * Patient Self Assessment of Health Status: good. * Tobacco use: Non-User * Alcohol use: User 3 to 4 a week. * Illicit drug use: Non-User * Current diet: well balanced diet, does consume adequate fluids and does consume caffeine. * Exercise Frequency: regularly. * Depression/Suicide Screening: . * During the past 2 weeks, the patient has not felt down, depressed or hopeless. * During the past 2 weeks, the patient has not felt little interest or pleasure in doing things. * Hearing Impairment: Patient has slight hearing impairment, bilaterally. * Cognitive Impairment: No cognitive impairment observed. * Bathing: performs independently. * Dressing: performs independently. * Walking: performs independently. * Toileting: performs independently. * Feeding: performs independently. * Personal Hygiene: performs independently. * Bowels: continent. * Bladder: continent. * Managing Finances: performs independently. * Shopping: performs independently. * Managing Medications: performs independently. * Housework / Basic Home Maintenance: performs independently. * Falls Risk Screening:. NEGRITA has not fallen in the last 6 months. * Home safety risk factors: none. * Advance directives:. Patient has living will. Patient has healthcare POA. [facility] Work Phone: History of Present illness Narrative* The patient is being seen for the subsequent annual wellness visit. * Past Medical, Surgical and Family History: reviewed and updated in chart. * Medications and Supplements: Medications and supplements, including calcium and vitamins reviewed and updated in chart. * No, the patient is not using opioids. * Patient Self Assessment of Health Status: good. * Tobacco use: Non-User * Alcohol use: User 3 to 4 a week. * Illicit drug use: Non-User * Current diet: well balanced diet, does consume adequate fluids and does consume caffeine. * Exercise Frequency: regularly. * Depression/Suicide Screening: . * During the past 2 weeks, the patient has not felt down, depressed or hopeless. * During the past 2 weeks, the patient has not felt little interest or pleasure in doing things. * Hearing Impairment: Patient has slight hearing impairment, bilaterally. * Cognitive Impairment: No cognitive impairment observed. * Bathing: performs independently. * Dressing: performs independently. * Walking: performs independently. * Toileting: performs independently. * Feeding: performs independently. * Personal Hygiene: performs independently. * Bowels: continent. * Bladder: continent. * Managing Finances: performs independently. * Shopping: performs independently. * Managing Medications: performs independently. * Housework / Basic Home Maintenance: performs independently. * Falls Risk Screening:. NEGRITA has not fallen in the last 6 months. * Home safety risk factors: none. * Advance directives:. Patient has living will. Patient has healthcare POA. [facility] [employer] Work Phone: History of Present illness NarrativePatient is a very pleasant 65-year-old male who presents today with complaints of bilateral shoulder pain. He had pain in both shoulders for many years. He has had multiple rounds of injections in the past which have been substantially helpful in improving his symptoms. But it is worse with any overhead activities he does have difficulty lifting and elevating objects he has difficulty holding thearms over the head with certain bending and twisting activities primarily reaching behind his back or across his body.[facility] 300 Work Phone: History of Present illness NarrativePatient is a very pleasant 65-year-old male who presents today in follow-up with regards to his left shoulder. He does feel like the corticosteroid injection did significantly help the shoulder symptoms he still limited somewhat in his range of motion still does have some pain but it is much improved.[facility] 300 Work Phone: History of Present illness NarrativePatient is a very pleasant 65-year-old male who presents today in follow-up with regards to his left shoulder. He does feel like the corticosteroid injection did significantly help the shoulder symptoms he still limited somewhat in his range of motion still does have some pain but it is much improved.[facility] 300 Work Phone: History of Present illness NarrativePatient is a very pleasant 65-year-old male who presents today in follow-up with regards to his right shoulder. The left shoulder seems to be doing very well for the time being but unfortunately right shoulder is quite painful and symptomatic. He is interested in trialing another injection in the shoulder as this is been helpful for him in the past.[facility] 300 Work Phone: History of Present illness Narrative* Patient is a 65 year male who presents with signs/symptoms consistent with lumbosacral radiculopathy: increased pain, decreased lumbar AROM, decreased core/LE strength, decreased ability as assessed by the Oswestry. Patient would benefit from skilled PT to improve lumbar AROM, increase core/LE strength for return to PLOF: able to lift leg, turn over in bed without increased pain. Barriers to patient s progress in PT include recent fall on ice; however, rehab potential is good because patient ismotivated to participate in PT. At initial evaluation, patient was instructed in hip flexibility, core strengthening. At end of initial evaluation, patient reported no change in symptoms vs pre-evaluation. * Clinical Presentation: Stable and/or uncomplicated characteristics. * Level of Complexity: low * Problem List: activity limitations, ADLs/IADLs/self care skills, decreased functional level, decreased knowledge of HEP, fall risk, flexibility, pain, participation restrictions, range of motion/joint mobility and strength. [facility] Work Phone: History of Present illness NarrativePatient tolerated treatment without pain. Patient has good TrA and keeps intact with ther-ex. Patient has good form/understanding with ther-ex and keeps body in good alignment. Continue with core stability while performing dyn activity to decrease back pain.[facility] Work Phone: History of Present illness NarrativePatient identified by name and date of . Patient required cues for TrA engagement without compensations. He was able to progress with core strengthening and ROM with good tolerance w/o report ofincreased Sx after treatment. Instructed with decreased prolonged sitting to decrease in reported increased Sx. he verbalized good understanding.[facility] [employer] Work Phone: History of Present illness NarrativePatient identified by name and date of . Patient required cues for TrA engagement without compensations. He was able to progress with core strengthening and ROM with good tolerance w/o report ofincreased Sx after treatment. Instructed with decreased prolonged sitting to decrease in reported increased Sx. he verbalized good understanding.[facility] Work Phone: History of Present illness NarrativePatient identified by name and date of . Patient was able to demonstrate good understanding ofHEP with review. He was able to progress with wall squats, SLR and hip abd with focus on core and glut strengthening.[facility] [employer] Work Phone: History of Present illness NarrativePatient was identified by name and date. IASTM/STM completed to reduce soft tissue restrictions at LBP. Instructed in self massage techniques with Thera Cane and roller bar to improve self management of Sxs.. He voiced good understanding of instructions. No c/o with new additions.[facility] Work Phone: History of Present illness Narrative* Pt has attended 8 visits of skilled PT for lumbosacral radiculopathy consisting of evaluation, therex, manual, aquatic therapy, and home exercises. Pt has benefited from PT as evidenced by decreasedpain levels, decreased disability as assessed by ALEX. At this time, pt has knowledge/skills to contprogressing independently via a HEP, which has been provided. Therefore, skilled PT will be discharged. * Response to treatment: no change in pain. * Patient was able to complete today's treatment with ease. [facility] Work Phone: History of Present illness NarrativePatient is a pleasant 66-year-old male presenting today for 3 month follow up with regards to his bilateral shoulder pain. Patient was last seen in office on in which he was administered a corticosteroid injection in to the subacromial space of the bilateral shoulders and the hip. He reports this previous injection of the hip has provided him continuous adequate relief of pain. He has now been seeing Dr. Kinney [facility] for the treatment condition of his hip and back. He also reports to have received adequate relief of shoulder pain with the previous injections, but he has become quite symptomatic again since an incident where he was picking up a large rock and placed strain on the shoulders. He states he has continued to be symptomatic with pain that has been progressively worsening. Patient does elect to proceed today with repeat corticosteroid injections for bilateral shoulders.[facility] 300 Work Phone: History of Present illness NarrativeMr. Yadav is a 66-year-old man with a history of low back pain. He denies any significant leg pain and has no difficulty with bowel or bladder. He has been evaluated by Dr. Kinney for possible intervention. At this time MR. Yadav states that with PT the vast majority of his pain has resolved. He does have occasional pain, but notes it is on the left side, and never the right.[place] Work Phone: History of Present illness NarrativePatient is a pleasant 66-year-old male presenting today for 3 month follow up with regards to her bilateral shoulder pain. Patient has had substantial relief from subacromial corticosteroid injections and would like to pursue repeat injections today. He notes he has been using Aleve for pain management as needed.[facility] 300 Work Phone: History of Present illness Narrative* The patient is being seen for the subsequent annual wellness visit. * Past Medical, Surgical and Family History: reviewed and updated in chart. * Medications and Supplements: Review of all medications by a prescribing practitioner or clinical pharmacist (such as prescriptions, OTCs, herbal therapies and supplements) documented in the medical record. * No, the patient is not using opioids. * Patient Self Assessment of Health Status: good. * Tobacco use: Non-User * Alcohol use: User 3 to 4 a week. * Illicit drug use: Non-User * Current diet: well balanced diet, does consume adequate fluids and does consume caffeine. * Exercise Frequency: regularly. * Depression/Suicide Screening: . * During the past 2 weeks, the patient has not felt down, depressed or hopeless. * During the past 2 weeks, the patient has not felt little interest or pleasure in doing things. * Hearing Impairment: Patient has slight hearing impairment, bilaterally. * Cognitive Impairment: No cognitive impairment observed. * Bathing: performs independently. * Dressing: performs independently. * Walking: performs independently. * Toileting: performs independently. * Feeding: performs independently. * Personal Hygiene: performs independently. * Bowels: continent. * Bladder: continent. * Managing Finances: performs independently. * Shopping: performs independently. * Managing Medications: performs independently. * Housework / Basic Home Maintenance: performs independently. * Handling Transportation: performs independently. * Preparing Meals: performs independently. * Falls Risk Screening:. NEGRITA has not fallen in the last 6 months. * Home safety risk factors: none. * Advance directives:. Advanced Care Planning discussed and documented advance care plan or surrogatedecision maker documented in the medical record. Patient has living will. Patient has healthcare POA. -[facility] 400 DO Work Phone: History of Present illness Narrative* The patient is being seen for the subsequent annual wellness visit. * Past Medical, Surgical and Family History: reviewed and updated in chart. * Medications and Supplements: Review of all medications by a prescribing practitioner or clinical pharmacist (such as prescriptions, OTCs, herbal therapies and supplements) documented in the medical record. * No, the patient is not using opioids. * Patient Self Assessment of Health Status: good. * Tobacco use: Non-User * Alcohol use: User 3 to 4 a week. * Illicit drug use: Non-User * Current diet: well balanced diet, does consume adequate fluids and does consume caffeine. * Exercise Frequency: regularly. * Depression/Suicide Screening: . * During the past 2 weeks, the patient has not felt down, depressed or hopeless. * During the past 2 weeks, the patient has not felt little interest or pleasure in doing things. * Hearing Impairment: Patient has slight hearing impairment, bilaterally. * Cognitive Impairment: No cognitive impairment observed. * Bathing: performs independently. * Dressing: performs independently. * Walking: performs independently. * Toileting: performs independently. * Feeding: performs independently. * Personal Hygiene: performs independently. * Bowels: continent. * Bladder: continent. * Managing Finances: performs independently. * Shopping: performs independently. * Managing Medications: performs independently. * Housework / Basic Home Maintenance: performs independently. * Handling Transportation: performs independently. * Preparing Meals: performs independently. * Falls Risk Screening:. NEGRITA has not fallen in the last 6 months. * Home safety risk factors: none. * Advance directives:. Advanced Care Planning discussed and documented advance care plan or surrogatedecision maker documented in the medical record. Patient has living will. Patient has healthcare POA. -[facility] Work Phone: History of Present illness Narrative* Pain Location: Low Back Pain. * Pain Quality: Sharp. * Sensory/ Motor: Weakness and LEGS. * Timing/Duration: < 6 weeks duration. Worsened * Exacerbating Factors: motion, repetitive motion and ADL. * Alleviating Factors: Exercise, Medications, Moist Heat, Repositioning. * 24 Hour Behavior: * Symptoms are worse in the am. * Symptoms are worse as the day progresses. * Symptoms are the same in the pm. * Symptoms are better lying down. * Patient Education: * Inj. education completed written and verbally. [facility] Work [facility]: History of Present illness Narrative* Pain Location: Low Back Pain. * Pain Quality: Sharp. * Sensory/ Motor: Weakness and LEGS. * Timing/Duration: < 6 weeks duration. Worsened * Controlled Substance: * I have personally reviewed the [place] report for NEGRITA YADAV. I have considered the risks of abuse, dependence, addiction and diversion. * Exacerbating Factors: motion, repetitive motion and ADL. * Alleviating Factors: Exercise, Medications, Moist Heat, Repositioning. * 24 Hour Behavior: * Symptoms are worse in the am. * Symptoms are worse as the day progresses. * Symptoms are the same in the pm. * Symptoms are better lying down. * Patient Education: * Inj. education completed written and verbally. [facility] Work Phone: Hospital course Narrative No data available for this section [facility] Discharge instructions No data available for this section [facility] Instructions* Name Dates Details Instructions not documented [facility] Work Phone: Progress note No data available for this section [facility] Reason for visit Narrative* Initial Evaluation . lumbosacral radiculopathy, lumbosacral spondylosis, sacroiilitis. * Referred by: Dr. Kinney [facility] Work Phone: Summary Purpose Family History No Family History Records Found Mother Name Dates Details Family history of coronary a rtery disease(V17.3, Z82.49) Status:Active Family history of hypertensi on(V17.49, Z82.49) Status:Active Father Name Dates Details Family history of hypertensi on(V17.49, Z82.49) Status:Active Family history of cardiac di sorder(V17.49, Z82.49) Status:Active Family history of alcoholism (V17.0, Z81.1) Status:Active Mother Name Dates Details Family history of coronary a rtery disease(V17.3, Z82.49) Status:Active Family history of hypertensi on(V17.49, Z82.49) Status:Active Father Name Dates Details Family history of hypertensi on(V17.49, Z82.49) Status:Active Family history of cardiac di sorder(V17.49, Z82.49) Status:Active Family history of alcoholism (V17.0, Z81.1) Status:Active Mother Name Dates Details Family history of coronary a rtery disease(V17.3, Z82.49) Status:Active Family history of hypertensi on(V17.49, Z82.49) Status:Active Father Name Dates Details Family history of hypertensi on(V17.49, Z82.49) Status:Active Family history of cardiac di sorder(V17.49, Z82.49) Status:Active Family history of alcoholism (V17.0, Z81.1) Status:Active Mother Name Dates Details Family history of coronary a rtery disease(V17.3, Z82.49) Status:Active Family history of hypertensi on(V17.49, Z82.49) Status:Active Father Name Dates Details Family history of hypertensi on(V17.49, Z82.49) Status:Active Family history of cardiac di sorder(V17.49, Z82.49) Status:Active Family history of alcoholism (V17.0, Z81.1) Status:Active Mother Name Dates Details Family history of hypertensi on(V17.49, Z82.49) Status:Active Family history of coronary a rtery disease(V17.3, Z82.49) Status:Active Father Name Dates Details Family history of hypertensi on(V17.49, Z82.49) Status:Active Family history of cardiac di sorder(V17.49, Z82.49) Status:Active Family history of alcoholism (V17.0, Z81.1) Status:Active Mother Name Dates Details Family history of coronary a rtery disease(V17.3, Z82.49) Status:Active Family history of hypertensi on(V17.49, Z82.49) Status:Active Father Name Dates Details Family history of hypertensi on(V17.49, Z82.49) Status:Active Family history of cardiac di sorder(V17.49, Z82.49) Status:Active Family history of alcoholism (V17.0, Z81.1) Status:Active Mother Name Dates Details Family history of coronary a rtery disease(V17.3, Z82.49) Status:Active Family history of hypertensi on(V17.49, Z82.49) Status:Active Father Name Dates Details Family history of hypertensi on(V17.49, Z82.49) Status:Active Family history of cardiac di sorder(V17.49, Z82.49) Status:Active Family history of alcoholism (V17.0, Z81.1) Status:Active Unknown Family Member Name Dates Details Family history of coronary a rtery disease: Mother(V17.3, Z82.49) Status:Active Family history of hypertensi on: Mother, Father(V17.49, Z82.49) Status:Active Family history of cardiac di sorder: Father(V17.49, Z82.49) Status:Active Family history of alcoholism : Father(V17.0, Z81.1) Status:Active Unknown Family Member Name Dates Details Family history of coronary a rtery disease: Mother(V17.3, Z82.49) Status:Active Family history of hypertensi on: Mother, Father(V17.49, Z82.49) Status:Active Family history of cardiac di sorder: Father(V17.49, Z82.49) Status:Active Family history of alcoholism : Father(V17.0, Z81.1) Status:Active Unknown Family Member Name Dates Details Family history of coronary a rtery disease: Mother(V17.3, Z82.49) Status:Active Family history of hypertensi on: Mother, Father(V17.49, Z82.49) Status:Active Family history of cardiac di sorder: Father(V17.49, Z82.49) Status:Active Family history of alcoholism : Father(V17.0, Z81.1) Status:Active Unknown Family Member Name Dates Details Family history of coronary a rtery disease: Mother(V17.3, Z82.49) Status:Active Family history of hypertensi on: Mother, Father(V17.49, Z82.49) Status:Active Family history of cardiac di sorder: Father(V17.49, Z82.49) Status:Active Family history of alcoholism : Father(V17.0, Z81.1) Status:Active Unknown Family Member Name Dates Details Family history of coronary a rtery disease: Mother(V17.3, Z82.49) Status:Active Family history of hypertensi on: Mother, Father(V17.49, Z82.49) Status:Active Family history of cardiac di sorder: Father(V17.49, Z82.49) Status:Active Family history of alcoholism : Father(V17.0, Z81.1) Status:Active Unknown Family Member Name Dates Details Family history of coronary a rtery disease: Mother(V17.3, Z82.49) Status:Active Family history of hypertensi on: Mother, Father(V17.49, Z82.49) Status:Active Family history of cardiac di sorder: Father(V17.49, Z82.49) Status:Active Family history of alcoholism : Father(V17.0, Z81.1) Status:Active Unknown Family Member Name Dates Details Family history of coronary a rtery disease: Mother(V17.3, Z82.49) Status:Active Family history of hypertensi on: Mother, Father(V17.49, Z82.49) Status:Active Family history of cardiac di sorder: Father(V17.49, Z82.49) Status:Active Family history of alcoholism : Father(V17.0, Z81.1) Status:Active Unknown Family Member Name Dates Details Family history of coronary a rtery disease: Mother(V17.3, Z82.49) Status:Active Family history of hypertensi on: Mother, Father(V17.49, Z82.49) Status:Active Family history of cardiac di sorder: Father(V17.49, Z82.49) Status:Active Family history of alcoholism : Father(V17.0, Z81.1) Status:Active Unknown Family Member Name Dates Details Family history of coronary a rtery disease: Mother(V17.3, Z82.49) Status:Active Family history of hypertensi on: Mother, Father(V17.49, Z82.49) Status:Active Family history of cardiac di sorder: Father(V17.49, Z82.49) Status:Active Family history of alcoholism : Father(V17.0, Z81.1) Status:Active Unknown Family Member Name Dates Details Family history of coronary a rtery disease: Mother(V17.3, Z82.49) Status:Active Family history of hypertensi on: Mother, Father(V17.49, Z82.49) Status:Active Family history of cardiac di sorder: Father(V17.49, Z82.49) Status:Active Family history of alcoholism : Father(V17.0, Z81.1) Status:Active Unknown Family Member Name Dates Details Family history of coronary a rtery disease: Mother(V17.3, Z82.49) Status:Active Family history of hypertensi on: Mother, Father(V17.49, Z82.49) Status:Active Family history of cardiac di sorder: Father(V17.49, Z82.49) Status:Active Family history of alcoholism : Father(V17.0, Z81.1) Status:Active Unknown Family Member Name Dates Details Family history of coronary a rtery disease: Mother(V17.3, Z82.49) Status:Active Family history of hypertensi on: Mother, Father(V17.49, Z82.49) Status:Active Family history of cardiac di sorder: Father(V17.49, Z82.49) Status:Active Family history of alcoholism : Father(V17.0, Z81.1) Status:Active Unknown Family Member Name Dates Details Family history of coronary a rtery disease: Mother(V17.3, Z82.49) Status:Active Family history of hypertensi on: Mother, Father(V17.49, Z82.49) Status:Active Family history of cardiac di sorder: Father(V17.49, Z82.49) Status:Active Family history of alcoholism : Father(V17.0, Z81.1) Status:Active Unknown Family Member Name Dates Details Family history of coronary a rtery disease: Mother(V17.3, Z82.49) Status:Active Family history of hypertensi on: Mother, Father(V17.49, Z82.49) Status:Active Family history of cardiac di sorder: Father(V17.49, Z82.49) Status:Active Family history of alcoholism : Father(V17.0, Z81.1) Status:Active Unknown Family Member Name Dates Details Family history of coronary a rtery disease: Mother(V17.3, Z82.49) Status:Active Family history of hypertensi on: Mother, Father(V17.49, Z82.49) Status:Active Family history of cardiac di sorder: Father(V17.49, Z82.49) Status:Active Family history of alcoholism : Father(V17.0, Z81.1) Status:Active Unknown Family Member Name Dates Details Family history of coronary a rtery disease: Mother(V17.3, Z82.49) Status:Active Family history of hypertensi on: Mother, Father(V17.49, Z82.49) Status:Active Family history of cardiac di sorder: Father(V17.49, Z82.49) Status:Active Family history of alcoholism : Father(V17.0, Z81.1) Status:Active Unknown Family Member Name Dates Details Family history of coronary a rtery disease: Mother(V17.3, Z82.49) Status:Active Family history of hypertensi on: Mother, Father(V17.49, Z82.49) Status:Active Family history of cardiac di sorder: Father(V17.49, Z82.49) Status:Active Family history of alcoholism : Father(V17.0, Z81.1) Status:Active Unknown Family Member Name Dates Details Family history of coronary a rtery disease: Mother(V17.3, Z82.49) Status:Active Family history of hypertensi on: Mother, Father(V17.49, Z82.49) Status:Active Family history of cardiac di sorder: Father(V17.49, Z82.49) Status:Active Family history of alcoholism : Father(V17.0, Z81.1) Status:Active Unknown Family Member Name Dates Details Family history of coronary a rtery disease: Mother(V17.3, Z82.49) Status:Active Family history of hypertensi on: Mother, Father(V17.49, Z82.49) Status:Active Family history of cardiac di sorder: Father(V17.49, Z82.49) Status:Active Family history of alcoholism : Father(V17.0, Z81.1) Status:Active Unknown Family Member Name Dates Details Family history of alcoholism : Father(V17.0, Z81.1) Status:Active Family history of cardiac di sorder: Father(V17.49, Z82.49) Status:Active Family history of hypertensi on: Mother, Father(V17.49, Z82.49) Status:Active Family history of coronary a rtery disease: Mother(V17.3, Z82.49) Status:Active Unknown Family Member Name Dates Details Family history of coronary a rtery disease: Mother(V17.3, Z82.49) Status:Active Family history of hypertensi on: Mother, Father(V17.49, Z82.49) Status:Active Family history of cardiac di sorder: Father(V17.49, Z82.49) Status:Active Family history of alcoholism : Father(V17.0, Z81.1) Status:Active Unknown Family Member Name Dates Details Family history of coronary a rtery disease: Mother(V17.3, Z82.49) Status:Active Family history of hypertensi on: Mother, Father(V17.49, Z82.49) Status:Active Family history of cardiac di sorder: Father(V17.49, Z82.49) Status:Active Family history of alcoholism : Father(V17.0, Z81.1) Status:Active Mother Name Dates Details Family history of coronary a rtery disease(V17.3, Z82.49) Status:Active Family history of hypertensi on(V17.49, Z82.49) Status:Active Father Name Dates Details Family history of hypertensi on(V17.49, Z82.49) Status:Active Family history of cardiac di sorder(V17.49, Z82.49) Status:Active Family history of alcoholism (V17.0, Z81.1) Status:Active Unknown Family Member Name Dates Details Family history of coronary a rtery disease: Mother(V17.3, Z82.49) Status:Active Family history of hypertensi on: Mother, Father(V17.49, Z82.49) Status:Active Family history of cardiac di sorder: Father(V17.49, Z82.49) Status:Active Family history of alcoholism : Father(V17.0, Z81.1) Status:Active Unknown Family Member Name Dates Details Family history of coronary a rtery disease: Mother(V17.3, Z82.49) Status:Active Family history of hypertensi on: Mother, Father(V17.49, Z82.49) Status:Active Family history of cardiac di sorder: Father(V17.49, Z82.49) Status:Active Family history of alcoholism : Father(V17.0, Z81.1) Status:Active Unknown Family Member Name Dates Details Family history of alcoholism : Father(V17.0, Z81.1) Status:Active Family history of cardiac di sorder: Father(V17.49, Z82.49) Status:Active Family history of hypertensi on: Mother, Father(V17.49, Z82.49) Status:Active Family history of coronary a rtery disease: Mother(V17.3, Z82.49) Status:Active Unknown Family Member Name Dates Details Family history of coronary a rtery disease: Mother(V17.3, Z82.49) Status:Active Family history of hypertensi on: Mother, Father(V17.49, Z82.49) Status:Active Family history of cardiac di sorder: Father(V17.49, Z82.49) Status:Active Family history of alcoholism : Father(V17.0, Z81.1) Status:Active Unknown Family Member Name Dates Details Family history of coronary a rtery disease: Mother(V17.3, Z82.49) Status:Active Family history of hypertensi on: Mother, Father(V17.49, Z82.49) Status:Active Family history of cardiac di sorder: Father(V17.49, Z82.49) Status:Active Family history of alcoholism : Father(V17.0, Z81.1) Status:Active Unknown Family Member Name Dates Details Family history of coronary a rtery disease: Mother(V17.3, Z82.49) Status:Active Family history of hypertensi on: Mother, Father(V17.49, Z82.49) Status:Active Family history of cardiac di sorder: Father(V17.49, Z82.49) Status:Active Family history of alcoholism : Father(V17.0, Z81.1) Status:Active Unknown Family Member Name Dates Details Family history of coronary a rtery disease: Mother(V17.3, Z82.49) Status:Active Family history of hypertensi on: Mother, Father(V17.49, Z82.49) Status:Active Family history of cardiac di sorder: Father(V17.49, Z82.49) Status:Active Family history of alcoholism : Father(V17.0, Z81.1) Status:Active Unknown Family Member Name Dates Details Family history of coronary a rtery disease: Mother(V17.3, Z82.49) Status:Active Family history of hypertensi on: Mother, Father(V17.49, Z82.49) Status:Active Family history of cardiac di sorder: Father(V17.49, Z82.49) Status:Active Family history of alcoholism : Father(V17.0, Z81.1) Status:Active Unknown Family Member Name Dates Details Family history of coronary a rtery disease: Mother(V17.3, Z82.49) Status:Active Family history of hypertensi on: Mother, Father(V17.49, Z82.49) Status:Active Family history of cardiac di sorder: Father(V17.49, Z82.49) Status:Active Family history of alcoholism : Father(V17.0, Z81.1) Status:Active Unknown Family Member Name Dates Details Family history of coronary a rtery disease: Mother(V17.3, Z82.49) Status:Active Family history of hypertensi on: Mother, Father(V17.49, Z82.49) Status:Active Family history of cardiac di sorder: Father(V17.49, Z82.49) Status:Active Family history of alcoholism : Father(V17.0, Z81.1) Status:Active Unknown Family Member Name Dates Details Family history of coronary a rtery disease: Mother(V17.3, Z82.49) Status:Active Family history of hypertensi on: Mother, Father(V17.49, Z82.49) Status:Active Family history of cardiac di sorder: Father(V17.49, Z82.49) Status:Active Family history of alcoholism : Father(V17.0, Z81.1) Status:Active Unknown Family Member Name Dates Details Family history of coronary a rtery disease: Mother(V17.3, Z82.49) Status:Active Family history of hypertensi on: Mother, Father(V17.49, Z82.49) Status:Active Family history of cardiac di sorder: Father(V17.49, Z82.49) Status:Active Family history of alcoholism : Father(V17.0, Z81.1) Status:Active Unknown Family Member Name Dates Details Family history of coronary a rtery disease: Mother(V17.3, Z82.49) Status:Active Family history of hypertensi on: Mother, Father(V17.49, Z82.49) Status:Active Family history of cardiac di sorder: Father(V17.49, Z82.49) Status:Active Family history of alcoholism : Father(V17.0, Z81.1) Status:Active Unknown Family Member Name Dates Details Family history of coronary a rtery disease: Mother(V17.3, Z82.49) Status:Active Family history of hypertensi on: Mother, Father(V17.49, Z82.49) Status:Active Family history of cardiac di sorder: Father(V17.49, Z82.49) Status:Active Family history of alcoholism : Father(V17.0, Z81.1) Status:Active Unknown Family Member Name Dates Details Family history of coronary a rtery disease: Mother(V17.3, Z82.49) Status:Active Family history of hypertensi on: Mother, Father(V17.49, Z82.49) Status:Active Family history of cardiac di sorder: Father(V17.49, Z82.49) Status:Active Family history of alcoholism : Father(V17.0, Z81.1) Status:Active Unknown Family Member Name Dates Details Family history of coronary a rtery disease: Mother(V17.3, Z82.49) Status:Active Family history of hypertensi on: Mother, Father(V17.49, Z82.49) Status:Active Family history of cardiac di sorder: Father(V17.49, Z82.49) Status:Active Family history of alcoholism : Father(V17.0, Z81.1) Status:Active Unknown Family Member Name Dates Details Family history of coronary a rtery disease: Mother(V17.3, Z82.49) Status:Active Family history of hypertensi on: Mother, Father(V17.49, Z82.49) Status:Active Family history of cardiac di sorder: Father(V17.49, Z82.49) Status:Active Family history of alcoholism : Father(V17.0, Z81.1) Status:Active Unknown Family Member Name Dates Details Family history of coronary a rtery disease: Mother(V17.3, Z82.49) Status:Active Family history of hypertensi on: Mother, Father(V17.49, Z82.49) Status:Active Family history of cardiac di sorder: Father(V17.49, Z82.49) Status:Active Family history of alcoholism : Father(V17.0, Z81.1) Status:Active Unknown Family Member Name Dates Details Family history of coronary a rtery disease: Mother(V17.3, Z82.49) Status:Active Family history of hypertensi on: Mother, Father(V17.49, Z82.49) Status:Active Family history of cardiac di sorder: Father(V17.49, Z82.49) Status:Active Family history of alcoholism : Father(V17.0, Z81.1) Status:Active Unknown Family Member Name Dates Details Family history of coronary a rtery disease: Mother(V17.3, Z82.49) Status:Active Family history of hypertensi on: Mother, Father(V17.49, Z82.49) Status:Active Family history of cardiac di sorder: Father(V17.49, Z82.49) Status:Active Family history of alcoholism : Father(V17.0, Z81.1) Status:Active Unknown Family Member Name Dates Details Family history of coronary a rtery disease: Mother(V17.3, Z82.49) Status:Active Family history of hypertensi on: Mother, Father(V17.49, Z82.49) Status:Active Family history of cardiac di sorder: Father(V17.49, Z82.49) Status:Active Family history of alcoholism : Father(V17.0, Z81.1) Status:Active Unknown Family Member Name Dates Details Family history of coronary a rtery disease: Mother(V17.3, Z82.49) Status:Active Family history of hypertensi on: Mother, Father(V17.49, Z82.49) Status:Active Family history of cardiac di sorder: Father(V17.49, Z82.49) Status:Active Family history of alcoholism : Father(V17.0, Z81.1) Status:Active Unknown Family Member Name Dates Details Family history of coronary a rtery disease: Mother(V17.3, Z82.49) Status:Active Family history of hypertensi on: Mother, Father(V17.49, Z82.49) Status:Active Family history of cardiac di sorder: Father(V17.49, Z82.49) Status:Active Family history of alcoholism : Father(V17.0, Z81.1) Status:Active Unknown Family Member Name Dates Details Family history of coronary a rtery disease: Mother(V17.3, Z82.49) Status:Active Family history of hypertensi on: Mother, Father(V17.49, Z82.49) Status:Active Family history of cardiac di sorder: Father(V17.49, Z82.49) Status:Active Family history of alcoholism : Father(V17.0, Z81.1) Status:Active Unknown Family Member Name Dates Details Family history of coronary a rtery disease: Mother(V17.3, Z82.49) Status:Active Family history of hypertensi on: Mother, Father(V17.49, Z82.49) Status:Active Family history of cardiac di sorder: Father(V17.49, Z82.49) Status:Active Family history of alcoholism : Father(V17.0, Z81.1) Status:Active Unknown Family Member Name Dates Details Family history of coronary a rtery disease: Mother(V17.3, Z82.49) Status:Active Family history of hypertensi on: Mother, Father(V17.49, Z82.49) Status:Active Family history of cardiac di sorder: Father(V17.49, Z82.49) Status:Active Family history of alcoholism : Father(V17.0, Z81.1) Status:Active Unknown Family Member Name Dates Details Family history of coronary a rtery disease: Mother(V17.3, Z82.49) Status:Active Family history of hypertensi on: Mother, Father(V17.49, Z82.49) Status:Active Family history of cardiac di sorder: Father(V17.49, Z82.49) Status:Active Family history of alcoholism : Father(V17.0, Z81.1) Status:Active Unknown Family Member Name Dates Details Family history of coronary a rtery disease: Mother(V17.3, Z82.49) Status:Active Family history of hypertensi on: Mother, Father(V17.49, Z82.49) Status:Active Family history of cardiac di sorder: Father(V17.49, Z82.49) Status:Active Family history of alcoholism : Father(V17.0, Z81.1) Status:Active Unknown Family Member Name Dates Details Family history of coronary a rtery disease: Mother(V17.3, Z82.49) Status:Active Family history of hypertensi on: Mother, Father(V17.49, Z82.49) Status:Active Family history of cardiac di sorder: Father(V17.49, Z82.49) Status:Active Family history of alcoholism : Father(V17.0, Z81.1) Status:Active Unknown Family Member Name Dates Details Family history of coronary a rtery disease: Mother(V17.3, Z82.49) Status:Active Family history of hypertensi on: Mother, Father(V17.49, Z82.49) Status:Active Family history of cardiac di sorder: Father(V17.49, Z82.49) Status:Active Family history of alcoholism : Father(V17.0, Z81.1) Status:Active Unknown Family Member Name Dates Details Family history of coronary a rtery disease: Mother(V17.3, Z82.49) Status:Active Family history of hypertensi on: Mother, Father(V17.49, Z82.49) Status:Active Family history of cardiac di sorder: Father(V17.49, Z82.49) Status:Active Family history of alcoholism : Father(V17.0, Z81.1) Status:Active Unknown Family Member Name Dates Details Family history of coronary a rtery disease: Mother(V17.3, Z82.49) Status:Active Family history of hypertensi on: Mother, Father(V17.49, Z82.49) Status:Active Family history of cardiac di sorder: Father(V17.49, Z82.49) Status:Active Family history of alcoholism : Father(V17.0, Z81.1) Status:Active Unknown Family Member Name Dates Details Family history of coronary a rtery disease: Mother(V17.3, Z82.49) Status:Active Family history of hypertensi on: Mother, Father(V17.49, Z82.49) Status:Active Family history of cardiac di sorder: Father(V17.49, Z82.49) Status:Active Family history of alcoholism : Father(V17.0, Z81.1) Status:Active Unknown Family Member Name Dates Details Family history of coronary a rtery disease: Mother(V17.3, Z82.49) Status:Active Family history of hypertensi on: Mother, Father(V17.49, Z82.49) Status:Active Family history of cardiac di sorder: Father(V17.49, Z82.49) Status:Active Family history of alcoholism : Father(V17.0, Z81.1) Status:Active Unknown Family Member Name Dates Details Family history of coronary a rtery disease: Mother(V17.3, Z82.49) Status:Active Family history of hypertensi on: Mother, Father(V17.49, Z82.49) Status:Active Family history of cardiac di sorder: Father(V17.49, Z82.49) Status:Active Family history of alcoholism : Father(V17.0, Z81.1) Status:Active Unknown Family Member Name Dates Details Family history of coronary a rtery disease: Mother(V17.3, Z82.49) Status:Active Family history of hypertensi on: Mother, Father(V17.49, Z82.49) Status:Active Family history of cardiac di sorder: Father(V17.49, Z82.49) Status:Active Family history of alcoholism : Father(V17.0, Z81.1) Status:Active Unknown Family Member Name Dates Details Family history of coronary a rtery disease: Mother(V17.3, Z82.49) Status:Active Family history of hypertensi on: Mother, Father(V17.49, Z82.49) Status:Active Family history of cardiac di sorder: Father(V17.49, Z82.49) Status:Active Family history of alcoholism : Father(V17.0, Z81.1) Status:Active Unknown Family Member Name Dates Details Family history of coronary a rtery disease: Mother(V17.3, Z82.49) Status:Active Family history of hypertensi on: Mother, Father(V17.49, Z82.49) Status:Active Family history of cardiac di sorder: Father(V17.49, Z82.49) Status:Active Family history of alcoholism : Father(V17.0, Z81.1) Status:Active Unknown Family Member Name Dates Details Family history of coronary a rtery disease: Mother(V17.3, Z82.49) Status:Active Family history of hypertensi on: Mother, Father(V17.49, Z82.49) Status:Active Family history of cardiac di sorder: Father(V17.49, Z82.49) Status:Active Family history of alcoholism : Father(V17.0, Z81.1) Status:Active Unknown Family Member Name Dates Details Family history of coronary a rtery disease: Mother(V17.3, Z82.49) Status:Active Family history of hypertensi on: Mother, Father(V17.49, Z82.49) Status:Active Family history of cardiac di sorder: Father(V17.49, Z82.49) Status:Active Family history of alcoholism : Father(V17.0, Z81.1) Status:Active Unknown Family Member Name Dates Details Family history of coronary a rtery disease: Mother(V17.3, Z82.49) Status:Active Family history of hypertensi on: Mother, Father(V17.49, Z82.49) Status:Active Family history of cardiac di sorder: Father(V17.49, Z82.49) Status:Active Family history of alcoholism : Father(V17.0, Z81.1) Status:Active Unknown Family Member Name Dates Details Family history of alcoholism : Father(V17.0, Z81.1) Status:Active Family history of cardiac di sorder: Father(V17.49, Z82.49) Status:Active Family history of hypertensi on: Mother, Father(V17.49, Z82.49) Status:Active Family history of coronary a rtery disease: Mother(V17.3, Z82.49) Status:Active Unknown Family Member Name Dates Details Family history of coronary a rtery disease: Mother(V17.3, Z82.49) Status:Active Family history of hypertensi on: Mother, Father(V17.49, Z82.49) Status:Active Family history of cardiac di sorder: Father(V17.49, Z82.49) Status:Active Family history of alcoholism : Father(V17.0, Z81.1) Status:Active Advance Directives No Advanced Directives Records FoundDocuments on File Type Date Recorded Patient Medication Nurse Expl anation Advance Directives and Living Will Documents on File Type Date Recorded Patient Medication Nurse Expl anation Advance Directives and Livin g Will 10/03/2019 12:31 PM Documents on File Type Date Recorded Patient Medication Nurse Expl anation Advance Directives and Livin g Will 10/03/2019 12:31 PM Documents on File Type Date Recorded Patient Medication Nurse Expl anation Healthcare Power of Atty 09/08/2021 Living Will 09/08/2021 Reason for Referral Status Reason Specialty Diagnoses / Procedures Referred By Contact Referred To Contact Authorized Pulmonology Diagnoses Asthma, unspecified asthma severity, unspecified whether complicated, unspecified whether persistent Procedures Complete PFT with FeNO Janis Sinclair MD [address] [place] [id number] Status Reason Specialty Diagnoses / Procedures Referred By Contact Referred To Contact Authorized Sleep Medicine Diagnoses Nocturnal hypoxia Procedures Nocturnal pulse oximetry Janis Sinclair MD [address] [place] [id number] Status Reason Specialty Diagnoses / Procedures Referre d By Contact Referred To Contact Closed Pulmonology Diagnoses Asthma, unspecified asthma severity, unspecified whether complicated, unspecified whether persistent Procedures Complete PFT with FeNO Janis Sinclair MD [address] [place] [id number] History of Present Illness * Janis Sinclair MD - 08/22/2019 1:30 PM EST CC: Consultation for asthma/nocturnal hypoxemia HPI: Negrita Yadav is a 63 y.o. 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 He needs a new prescription for his nocturnal oxygen. He will be changing to a new company and isnow on Medicare which requires a updated examination. He has sleep apnea based on testing performedseveral years ago. A CPAP trial was no different than nocturnal oxygen so he has been on oxygen alone. He carries a history of polycythemia requiring phlebotomy. He has not required phlebotomy in some time. He was evaluated by hematology oncology and does not have PV. With regards to his asthma, hehad trouble as a child keeping up with the other children with regards to sports and activities. Hewas not officially diagnosed with asthma until age 28. He has significant atopy with allergies to grass, molds and dust mites. He had been on immunotherapy for many many years which was recently discontinued in November of this past year. Since he has been off his immunotherapy, he has not had any sign ificant recrudescence of his allergy symptoms. He has occasional nasal congestion for which he takes an antihistamine. He had been on Singulair in the past. With regards to his asthma, he has never been admitted to the hospital or required emergency department visits. He had been on Advair in the past and more recently has been on Asmanex alone. He requires use of his albuterol prior to exercise otherwise he has not required his rescue inhaler. He has no nocturnal symptoms. His asthma symptoms consist of dyspnea, wheezing at times, and mucus production which is clear to yellow in color. He uses Mucinex for his excessive mucus production which does seem to help. Albuterol does help his dyspnea. His asthma symptoms are also worsened by exposure to humidity. He denies problems with cold exposure, fumes or perfumes. He had pulmonary function tests 3 or 4 years ago. I do not have his recordsfrom his previous pharmacy technician infusion to review. 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 Never smoker, some alcohol, no illicit drug use. Pets none FH: Mother , heart disease. Father , heart disease, hypertension, alcoholic. Sisterliving, no known medical problems. Brother living, eczema Current Outpatient Medications Medication Sig Dispense Refill albuterol (ProAir HFA) 90 mcg/actuation inhaler Inhale 2 puffs every 6 (six) hours as needed for wheezing . atorvastatin (LIPITOR) 20 MG tablet cholecalciferol, vitamin D3, 1,000 unit tablet Take 1,000 Units by mouth daily. diltiazem (CARDIZEM CD) 180 MG 24 hr capsule Take 180 mg by mouth daily. doxycycline (VIBRAMYCIN) 100 MG capsule Take 100 mg by mouth as needed (For Rosacea). hydroxychloroquine (PLAQUENIL) 200 mg tablet Take by mouth daily. lisinopril (PRINIVIL,ZESTRIL) 10 MG tablet loratadine (CLARITIN) 10 mg tablet Take 10 mg by mouth daily. mometasone (Asmanex Twisthaler) 220 mcg/ actuation (120) AePB Inhale . testosterone (ANDROGEL) 1 % (25 mg/2.5gram) GlPk No current facility-administered medications for this visit. Review of Systems - History obtained from the patient and intake form General ROS: positive for - night sweats Psychological ROS: negative for - anxiety, depression or sleep disturbances Ophthalmic ROS: negative for - blurry vision, dry eyes, eye pain or itchy eyes ENT ROS: positive for - nasal congestion and nasal discharge negative for - sinus pain, sore throat or vocal changes Allergy and Immunology ROS: positive for - nasal congestion and seasonal allergies Hematological and Lymphatic ROS: positive for - bruising negative for - bleeding problems or blood clots Endocrine ROS: negative Respiratory ROS: positive for - cough, shortness of breath and wheezing negative for - hemoptysis Cardiovascular ROS: positive for - dyspnea on exertion negative for - chest pain, irregular heartbeat or orthopnea Gastrointestinal ROS: positive for - ulcer negative for - abdominal pain or heartburn Genito-Urinary ROS: no dysuria, trouble voiding, or hematuria Musculoskeletal ROS: negative for - joint pain, joint stiffness or muscular weakness Neurological ROS: no TIA or stroke symptoms Dermatological ROS: negative BP 131/71 Pulse 90 Wt 90.7 kg (200 lb) SpO2 94% BMI 26.39 kg/m General appearance: alert, appears stated age, cooperative and no distress Head: Normocephalic, without obvious abnormality Eyes: negative findings: lids and lashes normal, conjunctivae and sclerae normal and corneas clear Ears: normal TM's and external ear canals both ears, cerumen Throat: lips, mucosa, and tongue normal; teeth and gums normal Neck: no adenopathy, no JVD, supple, symmetrical, trachea midline and thyroid not enlarged, symmetric, no tenderness/mass/nodules Lungs: clear to auscultation bilaterally, normal percussion bilaterally and not labored Chest wall: no tenderness, normal configuration Heart: regular rate and rhythm, S1, S2 normal, no murmur, click, rub or gallop Extremities: extremities normal, atraumatic, no cyanosis or edema or clubbing Skin: Skin color, texture, turgor normal. No rashes or lesions Lymph nodes: no cervical or supraclavicular nodes Musculoskeletal: no joint deformities, no muscle weakness, no swelling Neurologic: Grossly normal, oriented ASSESMENT/PLAN: Asthma Nocturnal hypoxemia Polycythemia He will continue on his inhaled corticosteroid with as needed albuterol. I have ordered updated pulmonary function tests with a FeNO level. I have requested his records from his pharmacy technician infusion. For his nocturnal hypoxemia and recertification, I have ordered an overnight oximetry test off his oxygen as well as on his oxygen especially in light of his history of polycythemia. I will see him after his testing. documented in this encounter* Janis Sinclair MD - 10/10/2019 1:30 PM EST CC: follow-up testing HPI: Negrita Yadav is a 63 y.o. 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 He needed a new prescription for his nocturnal oxygen and further management of his asthma. I updated his pulmonary function tests, ordered a FeNO level, and overnight oxi metry on and off his oxygen. His overnight oximetry did not show significant desaturations or a pattern to suggest obstructive sleep apnea. He has lost weight since his original study so this may have solved his problem. His pulmonary function tests show no significant obstruction, hyperinflation or elevated FeNO level. His previous records from Dr. Benoit are now available and were reviewed. Hisprevious pulmonary function test did not show significant obstruction but he had hyperinflation andair trapping. His FeNO level has never been elevated. He has no new problems since his last visit. PFT 10/03/19: FVC 5.42 L 102% FEV1 4.26 L 107% FEV1/FVC 79% FEF 25-75% 3.80 L 142% increases to 4.29 L 141% a 15% improvement postbronchodilator TLC 8.17 L 108% FVC 4.22 L 101% RV 2.70 L 99% DLCO 21.9 114% FeNO 17 ppb Nocturnal oximetry Performed on RA did not show significant significant desaturation. Received records form Dr. Benoit: PFTs 10/06/2015: FVC 5.31 L 101% FEV1 4.32 L 109% FEV1/FVC 81% FEF 25-75% 157% with 50% improvement after bronchodilator Residual volume 4.52 L 184% Total lung capacity 9.98 L 131% DLCO 124% FeNO 25 ppb Home sleep study 06/13/2016: Mildly elevated AHI Current Outpatient Medications Medication Sig Dispense Refill albuterol (ProAir HFA) 90 mcg/actuation inhaler Inhale 2 puffs every 6 (six) hours as needed for wheezing . atorvastatin (LIPITOR) 20 MG tablet cholecalciferol, vitamin D3, 1,000 unit tablet Take 1,000 Units by mouth daily. diltiazem (CARDIZEM CD) 180 MG 24 hr capsule Take 180 mg by mouth daily. doxycycline (VIBRAMYCIN) 100 MG capsule Take 100 mg by mouth as needed (For Rosacea). hydroxychloroquine (PLAQUENIL) 200 mg tablet Take by mouth daily. lisinopril (PRINIVIL,ZESTRIL) 10 MG tablet loratadine (CLARITIN) 10 mg tablet Take 10 mg by mouth daily. mometasone (Asmanex Twisthaler) 220 mcg/ actuation (120) AePB Inhale . testosterone (ANDROGEL) 1 % (25 mg/2.5gram) GlPk No current facility-administered medications for this visit. PMH, surgical history, family history, social history: Reviewed, unchanged except where noted. Review of Systems - No change from last visit BP 130/78 (BP Location: Left arm, Patient Position: Sitting, BP Cuff Size: Adult) Pulse 94 Temp98.2 F (36.8 C) Resp 18 Ht 6' 2 Wt 92.9 kg (204 lb 11.2 oz) SpO2 98% BMI 26.28 kg/m General appearance: alert, appears stated age, cooperative and no distress Head: Normocephalic, without obvious abnormality Eyes: negative findings: lids and lashes normal, conjunctivae and sclerae normal and corneas clear Throat: lips, mucosa, and tongue normal; teeth and gums normal Neck: no adenopathy, no JVD, supple, symmetrical, trachea midline and thyroid not enlarged, symmetric, no tenderness/mass/nodules Lungs: clear to auscultation bilaterally, normal percussion bilaterally and not labored Chest wall: no tenderness, normal configuration Heart: regular rate and rhythm, S1, S2 normal, no murmur, click, rub or gallop Extremities: extremities normal, atraumatic, no cyanosis or edema Skin: Skin color, texture, turgor normal. No rashes or lesions ASSESMENT/PLAN: Asthma No current evidence of SADAF His nocturnal oxygen was discontinued. He will continue on his inhaled corticosteroid and as neededalbuterol. I will see him back in 6 months or sooner if he develops problems. documented in this encounter* Janis Sinclair MD - 05/14/2020 8:30 AM EDT CC: follow-up asthma HPI: Negrita Yadav is a 64 y.o. 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 He needed a new prescription for his nocturnal oxygen and further management of his asthma. I updated his testing which showed normal pulmonary function tests and FeNO lev el and overnight oximetry on RA did not show significant desaturations or a pattern to suggest obstructive sleep apnea. He has known polycythemia without evidence of polycythemia vera. His polycythemia was felt in part to be due to sleep apnea with nocturnal hypoxemia but since losing weight he no longer has sleep disordered breathing and has not required oxygen. He has persistent polycythemia and has been on testosterone for hypogonadism. His testosterone dose was recently decreased and his last reported hematocrit was 48% down from 55%. From an asthma standpoint he has been on inhaled corticosteroid with as needed albuterol. He mainly has shortness of breath with exercise. He has been pretreating his runs with albuterol but continues to have issues. He feels as if his exercise capacity is less but states it may just be aged related. He does not have any exercise-induced wheezing or chest pain. He has no respiratory issues outside of exercise. He denies any recent upper respiratory infections or other new medical problems. Current Outpatient Medications Medication Sig Dispense Refill albuterol (ProAir HFA) 90 mcg/actuation inhaler Inhale 2 puffs every 6 (six) hours as needed for wheezing . atorvastatin (LIPITOR) 20 MG tablet cholecalciferol, vitamin D3, 1,000 unit tablet Take 1,000 Units by mouth daily. diltiazem (CARDIZEM CD) 180 MG 24 hr capsule Take 180 mg by mouth daily. doxycycline (VIBRAMYCIN) 100 MG capsule Take 100 mg by mouth as needed (For Rosacea). hydroCHLOROthiazide (HYDRODIURIL) 25 MG tablet Take 25 mg by mouth daily . lisinopril (PRINIVIL,ZESTRIL) 10 MG tablet loratadine (CLARITIN) 10 mg tablet Take 10 mg by mouth daily. mometasone (Asmanex Twisthaler) 220 mcg/ actuation (120) AePB Inhale . testosterone (ANDROGEL) 1 % (25 mg/2.5gram) GlPk No current facility-administered medications for this visit. PMH, surgical history, family history, social history: Reviewed, unchanged except where noted. Review of Systems - History obtained from the patient General ROS: negative for - chills, fatigue, fever, weight gain or weight loss ENT ROS: negative for - headaches, nasal congestion, sinus pain or sore throat Respiratory ROS: positive for - exercise induced SOB and chest tightness Cardiovascular ROS: negative for - chest pain, dyspnea on exertion, edema, irregular heartbeat or palpitations Neurological ROS: no TIA or stroke symptoms BP 133/77 Pulse 94 Resp 16 Wt 90.7 kg (200 lb) SpO2 98% BMI 25.68 kg/m General appearance: alert, appears stated age, cooperative and no distress Head: Normocephalic, without obvious abnormality Eyes: negative findings: lids and lashes normal, conjunctivae and sclerae normal and corneas clear Throat: lips, mucosa, and tongue normal; teeth and gums normal Neck: no adenopathy, no JVD, supple, symmetrical, trachea midline and thyroid not enlarged, symmetric, no tenderness/mass/nodules Lungs: clear to auscultation bilaterally, normal percussion bilaterally and not labored Heart: regular rate and rhythm, S1, S2 normal, no murmur, click, rub or gallop Extremities: extremities normal, atraumatic, no cyanosis or edema Skin: Skin color, texture, turgor normal. No rashes or lesions ASSESMENT/PLAN: Asthma, mainly exercise-induced I recommended that he continue his inhaled corticosteroid with as needed albuterol. I instructed the patient to continue pretreating his exercise with albuterol and had a warm up. I explained to him that a warm up prior to his run may result in earlier bronchodilation and improve his running capacity. RTC 6 months or sooner with problems. He was instructed to call for an appointment since the schedule is not yet available. documented in this encounter Assessments Diagnosis Asthma, unspecified asthma severity, unspecified whether complicated, unspecified whether persistent Nocturnal hypoxia Diagnosis Asthma, unspecified asthma severity, unspecified whether complicated, unspecified whether persistent Diagnosis Asthma, unspecified asthma severity, unspecified whether complicated, unspecified whether persistent- Primary Chief Complaint * Pt presents to establish new PCP; previous pt of Dr. Law; Wellness Exam; med review and refillsto mail order; c/o left shoulder pain. This note was generated by using [employer] software. It may contain errors in wording, punctuate, or spelling. * He is here today to get established. He explains that he has been having some chronic shoulder painfor several years but recently has been bothering him more. He states that in the past he has received a cortisone injection which helps at least for a while. We also discussed his past medical history and I have reviewed his current problem list and medications. He states that he is seeing a lumber carrier operator because of abnormalities with his blood count. He states that recently it was felt that he might have high numbers due to his testosterone supplementation. He states he started taking testosterone in 2009 and recently it was reported that his testosterone level was too high. He was taking 2 pumps of the medication daily and is now down to 1 pump daily. The change was made around November 19 so we have decided to recheck a testosterone level. He expressed some desire about possibly getting off of it entirely. We also reviewed his most recent laboratory test results. His cholesterol profile is excellent. His blood pressure appears to be adequately controlled at this time. 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 He states that he tries to do 20 minutes of the elliptical in the morning and then he does of about 30 minutes of weight training. He has no cardiopulmonary symptoms. We discussed his risk factors for heart disease and decided to do a coronary calcium scan. I gave him a handout that explains the test. He does have a history of asthma and he has been seeing the pharmacy technician infusion. In the past couple of months he started using the Breo Ellipta. He states however he has had allergy symptoms and the humidity has caused him to rely on his rescue inhaler about twice a day. He uses the inhaler in the morning before exercise and then a second time in the afternoon. I will contact his pharmacy technician infusion about possibly increasing the dose of the Brio Ellipta. We also discussed cancer screening and his last colonoscopy was performed back in March 2017. He has no family history of colon cancer but we did talk about doing the Cologuard test and he is agreeable. He is also up-to-date with prostate cancer screening and his last PSA was performed in April 2020. We also discussed the questions on the Medicare wellness examination. He has had no falls in the last 6 months and he is done a lot to fall proof his home. He states he made changes and modifications when he had his knee surgery and he has grab bars in his bathroom as well as no throw rugs on the floor. I will give him a handout that goes over some tips for reducing her risk of falls in the future. He does have advanced directives. He also has been great about receiving preventative vaccines and has had his flu vaccine, pneumonia vaccine, shingles vaccine and the Pfizer COVID-19 vaccine. We will see him back in follow-up after completion of testing. * Pt presents to establish new PCP; previous pt of Dr. Law; Wellness Exam; med review and refillsto mail order; c/o left shoulder pain. This note was generated by using [employer] software. It may contain errors in wording, punctuate, or spelling. * He is here today to get established. He explains that he has been having some chronic shoulder painfor several years but recently has been bothering him more. He states that in the past he has received a cortisone injection which helps at least for a while. We also discussed his past medical history and I have reviewed his current problem list and medications. He states that he is seeing a lumber carrier operator because of abnormalities with his blood count. He states that recently it was felt that he might have high numbers due to his testosterone supplementation. He states he started taking testosterone in 2009 and recently it was reported that his testosterone level was too high. He was taking 2 pumps of the medication daily and is now down to 1 pump daily. The change was made around November 19 so we have decided to recheck a testosterone level. He expressed some desire about possibly getting off of it entirely. We also reviewed his most recent laboratory test results. His cholesterol profile is excellent. His blood pressure appears to be adequately controlled at this time. 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 He states that he tries to do 20 minutes of the elliptical in the morning and then he does of about 30 minutes of weight training. He has no cardiopulmonary symptoms. We discussed his risk factors for heart disease and decided to do a coronary calcium scan. I gave him a handout that explains the test. He does have a history of asthma and he has been seeing the pharmacy technician infusion. In the past couple of months he started using the Breo Ellipta. He states however he has had allergy symptoms and the humidity has caused him to rely on his rescue inhaler about twice a day. He uses the inhaler in the morning before exercise and then a second time in the afternoon. I will contact his pharmacy technician infusion about possibly increasing the dose of the Brio Ellipta. We also discussed cancer screening and his last colonoscopy was performed back in March 2017. He has no family history of colon cancer but we did talk about doing the Cologuard test and he is agreeable. He is also up-to-date with prostate cancer screening and his last PSA was performed in April 2020. We also discussed the questions on the Medicare wellness examination. He has had no falls in the last 6 months and he is done a lot to fall proof his home. He states he made changes and modifications when he had his knee surgery and he has grab bars in his bathroom as well as no throw rugs on the floor. I will give him a handout that goes over some tips for reducing her risk of falls in the future. He does have advanced directives. He also has been great about receiving preventative vaccines and has had his flu vaccine, pneumonia vaccine, shingles vaccine and the Pfizer COVID-19 vaccine. We will see him back in follow-up after completion of testing. * NEGRITA YADAV is here for a follow-up visit. * Reason for Visit: Asthma; Recommended to follow up re: Carole per Dr. Barker. * Appointment requested by: Dr. Barker. * NEGRITA YADAV is here for a follow-up visit. * Reason for Visit: Asthma; Recommended to follow up re: Breo per Dr. Barker. * Appointment requested by: Dr. Barker. * Pt is here today for a follow up on his coronary calcium scan, review labs, C/O abrasion on left arm. This note was generated by using [employer] software. It may contain errors in wording, punctuate, orspelling. * He is here today for follow-up. He does have an abrasion involving his left elbow region that occurred about a week ago. He states he has been applying a covering at night and also a topical antibiotic cream. The good news is it looks like it is healing adequately and I do not appreciate any signs of infection. We also went over the results of his testing including his coronary calcium scan. He did have a composite score of 104. We talked about the implications of these findings. We discussed the importance of controlling blood pressure well and lowering cholesterol sufficiently. At this point he is doing both. He also had a few scattered nodules with the largest measuring 9 mm. We discussed the fact that he has never smoked and be considered low risk but based on these findings and the Fleishner guidelines we will be ordering a follow-up noncontrast CT scan of the chest. I will also let Kelly know about these findings and he does have a planned follow-up visit with him in May.We talked about monitoring and at this point I explained that he would be considered to be at lowerrisk of developing future myocardial events. We also reviewed his laboratory test results and for the most part they came back within acceptable range. He states he is not fully decided what he will do with his testosterone supplementation but will talk to his lumber carrier operator. * He also had a negative Cologuard test. PT HERE FOR CHRONIC PAIN CECILIO SHOULDERS. STATES LEFT IS WORSE THAN RIGHT. LAST INJECTIONS DONE IN 2019. PAIN INCREASES WITH ACTIVITY. XRAYS DONE. REFERRED BY DR. BARKER.PT HERE FOR CHRONIC PAIN CECILIO SHOULDERS. STATES LEFT IS WORSE THAN RIGHT. LAST INJECTIONS DONE IN 2019. PAIN INCREASES WITH ACTIVITY. XRAYS DONE. REFERRED BY DR. BARKER.MRI RESULTS L SHOULDERMRI RESULTS L SHOULDER* Pt is here today for a 3 month check up, Review CT scan. This note was generated by using [employer] software. It may contain errors in wording, punctuate, or spelling. * He is here today for a 3-month checkup. We had originally scheduled his follow-up because of an abnormal CT scan he had an screening 3 months ago. Since that time he has been seen by pharmacy technician infusion. We went over the results today and the radiologist does point out a small change from last time. We di scussed getting back into pulmonary sooner for his follow-up appointment. When he arrived today hisblood pressure was generous and I did recheck it after he sat for a while but it still remained elevated. I believe that it is from the stress of today's visit going over test results. He has agreed to check his blood pressure at home and will give us an update on how numbers are looking. We did conduct a review of systems and we discussed his visits with Dr. Bosch. He has remained on testosterone supplementation but at half the dose that he was taking before. He states it does make him feel better so we are providing a refill today. His last testosterone level was performed back on February 14 and was within acceptable range of 296. We discussed a follow-up and determined that it would be safefor him to return in 6 months and sooner if any problems. * NEGRITA YADAV II is here for a follow-up visit and here with , Bertha. * Reason for Visit: Asthma. * Appointment requested by: Dr. Barker. * NEGRITA YADAV II is here for a follow-up visit and here with , Bertha. * Reason for Visit: Asthma. * Appointment requested by: Dr. Barker. Patient here for a f/u for right shoulder pain..Pain scale is a 2/10 today..Pt states the pain starts to get worse later in the day..Patient here for a f/u for right shoulder pain..Pain scale is a 2/10 today..Pt states the pain starts to get worse later in the day..* NEGRITA YADAV II is here for a follow-up visit. * Reason for Visit: CT Chest. * Appointment requested by: Dr. Barker. * NPV here for Bilat lower back pain L>R and has weakness in bilat legs when he gets up from sitting on the couch, rates 6-7/10 describes as a sharp and shooting pain. Pain started a few months ago with a new pair of shoes so he stopped wearing them and now occurs when he gets up from sitting on the couch. 1976 he hurt his back L4-L5 had surgery had no problem since the surgery. NO RX meds, no recent xrays, He exercises 5 days a week and takes OTC Aleve po and a topical Voltaren gel he gets relief but does not take the pain completely away. * This is a 65-year-old male here for a chief complaint of left-sided low back and leg pain. He reports this has been going on for 3 months. He cannot recall any obvious causative event but thinks it might of had something to do with him getting new shoes. He states the pain is intermittent and only when he rises from a seated position. He reports it is quite severe and it will feel like his legs will get weak and unstable. He will get some on the right side but the left side is considerably worse. He has been using Aleve and topical Voltaren gel which helped to an extent. He had back surgery in the 70s and he thinks this might be similar. He denies loss of bladder or bowel control or numbness. He reports when he gets up and walks the symptoms will improve but he is concerned about falling as it happens every time he rises from a seated position. He denies additional neurologic symptoms or issues. * The patient's past medical, social, and family history along with medications and allergies are available and were reviewed. PT HERE FOR FU CECILIO SHOULDER PAIN. HERE WITH . STATES FELL ON ICE LAST WEEK PAIN IN THE SHOULDERS HAS BEEN INCREASING. INJECTION ON THE RIGHT SHOULDER DONE ON 05/2021.* Pt presents for routine 6 mo check up; lab and med review. This note was generated by using [employer] software. It may contain errors in wording, punctuate, or spelling. * He is here today for his 6-month checkup. He is looking well and reports feeling well. His blood pressure remains under excellent control and he has lost a couple of pounds since his last visit. We did conduct a review of systems. He does have occasional cough. He does follow closely with pulmonary. We also discussed his most recent lab work. His BMP was normal as well as a CBC. He states that recently he had a phlebotomy per direction of Dr. Bosch. We also discussed his use of testosterone supplementation. He has been on it for a long time and he is done very well by dosing it with 1 pump. We determined that it would be a good time to check a PSA and his testosterone level today before he leaves. Once the results come back we will let him know. He also had this season's flu vaccine from [place] back in May. He also has advanced directives which she updated recently. He has no signs or symptoms of depression at this time. He also has been seeing Dr. Martínez for shoulder issues and received some cortisone injections recently and he also had an injection in his hip from a recent bout of sciatica. He also goes to the pain clinic.. * Patient following up from physical therapy. He states he has completed physical therapy and they have given him a HEP. Patient states that his pain level is a 0/10 at this time. He states he is pretty much pain free. Patient states he has no complaints at this time. * This is a 66-year-old male here for a follow-up appointment for chief complaint of low back pain. Since his last visit I had him go through physical therapy. He reports that helped out a lot and thathe is essentially pain- free. He has maintained the exercises at home. He is functioning normally. He denies new neurologic symptoms or issues with bladder or bowel control. * The patient's past medical, social, and family history along with medications and allergies are available and were reviewed. * ONGOING LOWER BACK PAIN FOR THE PAST 4 MONTHS, PATIENT IS HAVING INTERMITTENT LOWER BACK SHARP PAINAFTER SITTING TOO LONG OR EXERCISE, HIS LEGS GET WEAK, FEELS LIKE THEY ARE GOING TO COME OUT FROM BENEATH HIM AFTER STANDING, HE REPOSITIONS FOR RELIEF, HOME STRETCHES, ALEVE PRN, HE DOES NOT HAVE PAIN CURRENTLY , SCORE 0/10 * This is a 66-year-old male here for a follow-up appointment for chief complaint of low back and legpain. He reports that since his last visit his symptoms have started to return. He will get the lower back pain intermittently mainly when he starts walking or rises from a seated position. He reports that the more intense it is the more he will get numbness and weakness in the legs. At times they will feel unstable although he has not fallen yet. He denies new neurologic symptoms or issues with bladder or bowel control. * The patient's past medical, social, and family history along with medications and allergies are available and were reviewed. PT HERE FOR 3 MTH FU CECILIO SHOULDER PAIN. 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 PAIN HAS BEEN INCREASING SINCE.* FUV MRI results. today not having pain but yesterday he was in pain rates 5/10 bilat lower back no radiation thinks he hurt his knee and that aggravated his back more. * This is a 66-year-old male here for a follow-up appointment for chief complaint of low back pain. He reports that since his last visit his symptoms have improved. He still will get flares with activity but reports that for now things are tolerable. He has not had any significant leg pain. He deniesnew neurologic symptoms or issues with bladder or bowel control. * The patient's past medical, social, and family history along with medications and allergies are available and were reviewed. * NEGRITA YADAV II is here for a 6 month follow-up. * Reason for Visit: Asthma. * Appointment requested by: Dr. Barker. * NEGRITA YADAV II is here for a 6 month follow-up. * Reason for Visit: Asthma. * Appointment requested by: Dr. Barker. * NEGRITA YADAV II is here for a 6 month follow-up. * Reason for Visit: Asthma. * Appointment requested by: Dr. Barker. Pt here for 3 month follow up bilateral shoulder pain. States he has been taking Aleve but has not had much relief.* Pt is here today for a 6 month check up, review labs. He is also due for his [facility] wellness exam. This note was generated by using [employer] software. It may contain errors in wording, punctuate, or spelling. * He is here today for his 6-month checkup and we also completed his annual Medicare wellness visit. We did conduct a full review of systems and went through the Medicare questionnaire. He states in recent times he has been feeling well and he did receive recent injections in his shoulders which was h elpful. He also has had some issues with chronic low back pain and recently had an MRI which revealed spinal stenosis at an unusual lesion. He states he saw a neurosurgeon and they are monitoring fornow. We also went over the results of all of his lab work and overall I am pleased with his numbers. His cholesterol was excellent. We also discussed his asthma which has been very stable. We are providing refills on his inhaler and he knows to call if he starts experiencing increased symptomatology. He also has eczema and uses the generic equivalent of Lotrisone which I am providing a refill today. He also has his regular checkups with his shirt closer annually. His blood pressure remains under excellent control. He has had no falls in the last 6 months and has taken action to reduce his risk of falls in the home. He is also still very physically active and highly independent. He does everything for himself including his own finances and manages his own medications. He has no symptoms of depression. He also has advanced directives. He has been excellent about getting preventative vaccines and he does intend on getting this season's flu vaccine but wants to be sure that he does not have anything scheduled as far as activities around the time of receiving it. He has agreed to call us once he gets his flu vaccine. He is also been excellent about getting his COVID-19 vaccination series needs also had Shingrix. He also follows closely with a specialist and is doing very well. I will see him back in approximately 6 months or sooner if any problems. * F/U ED VISIT FOR SEVERE LOWER BACK PAIN, HE WAS GIVEN RX FOR MEDROL DOSEPAK,METHOCARBAMOL WHICH HE HAS FINISHED,STILL TAKING OXAPROZIN AND A TORADOL 30MG INJECTION WHILE IN ED AND HIS PAIN HAS SINCE GONE AWAY, WHEN HE DID HAVE THE PAIN IT WAS STABBING TO THE RIGHT LOWER BACK, DID NOT RADIATE, HE COULD NOT SIT, PATIENT IS SEEING DR. CASTRO ON 06/20/22, SCORE TODAY 0/10 , SCORE WITH EPISODE OF PAIN10/10 * This is a 66-year-old male here for a follow-up appointment for chief complaint of right-sided lower back and leg pain. He reports that he was doing reasonably well after his last visit but he had a severe exacerbation of pain a few weeks ago. He ended up going to the emergency department and was put on steroids and Daypro which seem to have helped. He was also given methocarbamol which made him quite groggy so he has not been using it. He has a consultation with Dr. Castro in 3 weeks. He was having severe right leg pain at the time but that has gotten better. Right now he is doing okay but he would like to know what he can do if this happens again. He denies new neurologic symptoms or issues with bladder or bowel control. * The patient's past medical, social, and family history along with medications and allergies are available and were reviewed. Patient is being seen for Back pain and a follow-up Neurosurgical visit.Patient here for bilateral shoulder discomfort. Wants to discuss more cortisone injections. Serves no complaints* FUV for L4-5 SEKOU 08-26-22; 100% relief. Cecilio low back pain 0/10 today. Patient c/o cecilio shoulder and hand pain. He has had this pain for years. No injury. L>R pain in cecilio shoulder/hands 3-12/05 today. He is seeing a surgeon for possible L shoudler sx. * This is a 58-year-old male here for a follow-up appointment for chief complaint of low back and legpain. At his last visit he underwent a lumbar epidural steroid injection at L4-L5. He reports 100% pain relief. He states that lumbar spine is not impacting his function whatsoever. He has no lower betty dy pain at all and is doing very well. He is going to have a left shoulder replacement in the near future and has some pain in both shoulders and in both hands but he has been following with orthopedist for that issue. He denies new neurologic symptoms or issues with bladder or bowel control. * The patient's past medical, social, and family history along with medications and allergies are available and were reviewed. * Pt is here today for a 6 month check up, review labs. He is also due for his [facility] wellness exam. This note was generated by using [employer] software. It may contain errors in wording, punctuate, or spelling. * He is here today for his 6-month checkup and we also completed his annual Medicare wellness visit. We did conduct a full review of systems and went through the Medicare questionnaire. He states in recent times he has been feeling well and he did receive recent injections in his shoulders which was h elpful. He also has had some issues with chronic low back pain and recently had an MRI which revealed spinal stenosis at an unusual lesion. He states he saw a neurosurgeon and they are monitoring fornow. We also went over the results of all of his lab work and overall I am pleased with his numbers. His cholesterol was excellent. We also discussed his asthma which has been very stable. We are providing refills on his inhaler and he knows to call if he starts experiencing increased symptomatology. He also has eczema and uses the generic equivalent of Lotrisone which I am providing a refill today. He also has his regular checkups with his shirt closer annually. His blood pressure remains under excellent control. He has had no falls in the last 6 months and has taken action to reduce his risk of falls in the home. He is also still very physically active and highly independent. He does everything for himself including his own finances and manages his own medications. He has no symptoms of depression. He also has advanced directives. He has been excellent about getting preventative vaccines and he does intend on getting this season's flu vaccine but wants to be sure that he does not have anything scheduled as far as activities around the time of receiving it. He has agreed to call us once he gets his flu vaccine. He is also been excellent about getting his COVID-19 vaccination series needs also had Shingrix. He also follows closely with a specialist and is doing very well. I will see him back in approximately 6 months or sooner if any problems. * Pt is here today for a 6 month check up, Review labs. Discuss Testosterone. He also needs pre op exam for his upcoming Left shoulder SX. This note was generated by using [employer] software. It may contain errors in wording, punctuate, or spelling. * He is here today for what has been labeled as his 6-month checkup but we also received notificationfrom his orthopedic surgeon that he is in need of surgical clearance for a left reverse total shoulder arthroplasty. The procedure has been scheduled for November 15 and he also apparently will be seeing another provider for preoperative clearance. When he arrived today his blood pressure was excellent. Overall he reports feeling well. We did conduct a full review of systems and he remains quite physically active. In fact he states that he exercises pretty regularly and does typically half hour onthe bike achieving about 7-1/2 miles of exercise and also he lifts weights for half hour. He indicates that during these activities he is not experiencing any chest discomfort or breathing difficulties. We also performed a preoperative EKG today which revealed a normal sinus rhythm and no suspicious ST-T wave segment changes. At this point based on his lack of symptoms and normal EKG I do feel that he has a sufficiently low risk to proceed with this surgery as planned. He does understand that with any type of surgical intervention there is always some level of inherent risk which would include the risk of having a heart attack, stroke, blood clot, bleeding complications, or infection. I will send a copy of today's note to his surgeon and also I have signed off on the request for surgical clearance form. I encouraged him to keep his appointment with the other provider as well. We also reviewed his most recent laboratory test results and for the most part everything looks really good. He is also reminded to follow-up with pulmonary for his pulmonary nodules as planned later this year.He has had a history of sacroiliitis which is more or less asymptomatic at this time. 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 * Pt is here today for a 6 month check up, Review labs. Discuss Testosterone. He also needs pre op exam for his upcoming Left shoulder SX. This note was generated by using [employer] software. It may contain errors in wording, punctuate, or spelling. * He is here today for what has been labeled as his 6-month checkup but we also received notificationfrom his orthopedic surgeon that he is in need of surgical clearance for a left reverse total shoulder arthroplasty. The procedure has been scheduled for November 15 and he also apparently will be seeing another provider for preoperative clearance. When he arrived today his blood pressure was excellent. Overall he reports feeling well. We did conduct a full review of systems and he remains quite physically active. In fact he states that he exercises pretty regularly and does typically half hour onthe bike achieving about 7-1/2 miles of exercise and also he lifts weights for half hour. He indicates that during these activities he is not experiencing any chest discomfort or breathing difficulties. We also performed a preoperative EKG today which revealed a normal sinus rhythm and no suspicious ST-T wave segment changes. At this point based on his lack of symptoms and normal EKG I do feel that he has a sufficiently low risk to proceed with this surgery as planned. He does understand that with any type of surgical intervention there is always some level of inherent risk which would include the risk of having a heart attack, stroke, blood clot, bleeding complications, or infection. I will send a copy of today's note to his surgeon and also I have signed off on the request for surgical clearance form. I encouraged him to keep his appointment with the other provider as well. We also reviewed his most recent laboratory test results and for the most part everything looks really good. He is also reminded to follow-up with pulmonary for his pulmonary nodules as planned later this year.He has had a history of sacroiliitis which is more or less asymptomatic at this time. 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 * F/U L4-5 SEKOU 100% RELIEF, HE HAD LEFT SHOULDER REVERSE REPLACEMENT ON 12/13/22 AND HASN'T BEEN VERY ACTIVE, WITHIN THE LAST 2 WEEKS HIS BACK PAIN HAS PROGRESSIVELY INCREASED WITH PAIN, SHARP PAIN THATSOMETIME LEADS TO FEELING OF WEAKNESS IN HIS LEGS HE HASN'T HAD ANY FALLS, HE GETS IT WITH GETTING OUT OF BED HE HASN'T GOTTEN THE WEAK FEELING IN HIS LEGS WITH TRANSITIONING FROM SITTING TO STANDING, USING OTC PAIN CREMES, HE STOPPED CELEBREX HE DIDN'T FEEL LIKE IT WAS HELPING WITH PAIN, TAKING ALEVE PRN, SCORE 2/10 * OSWESETRY DISABILITY INDEX=28% * HE CAN WALK WITHOUT HAVING TO STOP,HE CAN STAND UP TO 40 MIN, HE CAN SIT UP TO 1 HR * This is a 67-year-old male here for a follow-up appointment for chief complaint of low back and legpain. At his last visit on December 02 he underwent an L4-L5 epidural steroid injection. He reports 100% improvement with regard to pain on reduction and functional improvement for the first 2 months. He reports that he is just now starting to have some return of the symptoms but he is still doing well. He ended up having a left reverse shoulder replacement 6 weeks ago and reports that issue is also doing well. He denies new neurologic symptoms or issues with bladder or bowel control. He has maintained his exercise program for both his shoulder as well as his lumbar spine. He wanted to make sure he would still have the option of proceeding with another epidural injection if the need arose. He does not want to have spine surgery. The patient denies any additional numbness, tingling, weakness, or any loss of bladder or bowel control. * The patient's past medical, social, and family history along with medications and allergies are available and were reviewed. * F/U L4-5 SEKOU 100% RELIEF, HE HAD LEFT SHOULDER REVERSE REPLACEMENT ON 12/13/22 AND HASN'T BEEN VERY ACTIVE, WITHIN THE LAST 2 WEEKS HIS BACK PAIN HAS PROGRESSIVELY INCREASED WITH PAIN, SHARP PAIN THATSOMETIME LEADS TO FEELING OF WEAKNESS IN HIS LEGS HE HASN'T HAD ANY FALLS, HE GETS IT WITH GETTING OUT OF BED HE HASN'T GOTTEN THE WEAK FEELING IN HIS LEGS WITH TRANSITIONING FROM SITTING TO STANDING, USING OTC PAIN CREMES, HE STOPPED CELEBREX HE DIDN'T FEEL LIKE IT WAS HELPING WITH PAIN, TAKING ALEVE PRN, SCORE 2/10 * OSWESETRY DISABILITY INDEX=28% * HE CAN WALK WITHOUT HAVING TO STOP,HE CAN STAND UP TO 40 MIN, HE CAN SIT UP TO 1 HR * This is a 67-year-old male here for a follow-up appointment for chief complaint of low back and legpain. At his last visit on December 02 he underwent an L4-L5 epidural steroid injection. He reports 100% improvement with regard to pain on reduction and functional improvement for the first 2 months. He reports that he is just now starting to have some return of the symptoms but he is still doing well. He ended up having a left reverse shoulder replacement 6 weeks ago and reports that issue is also doing well. He denies new neurologic symptoms or issues with bladder or bowel control. He has maintained his exercise program for both his shoulder as well as his lumbar spine. He wanted to make sure he would still have the option of proceeding with another epidural injection if the need arose. He does not want to have spine surgery. The patient denies any additional numbness, tingling, weakness, or any loss of bladder or bowel control. * The patient's past medical, social, and family history along with medications and allergies are available and were reviewed. Additional Source Comments (unrecognized sect ion and content) No Status Records FoundNo Status Records FoundNo Status Records FoundNo Status Records FoundNo Status Records FoundNo Status Records FoundNo Status Records Found INFORMATION SOURCE (unrecogn ized section and content) DATE CREATED AUTHOR AUTHOR'S ORGANIZ ATION 10/04/2019 [facility] DATE CREATED AUTHOR AUTHOR'S ORGANIZ ATION 05/14/2020 [facility] DATE CREATED AUTHOR AUTHOR'S ORGANIZ ATION 04/04/2023 [employer] DATE CREATED AUTHOR AUTHOR'S ORGANIZ ATION 04/18/2023 [facility] DATE CREATED AUTHOR AUTHOR'S ORGANIZ ATION 04/22/2023 [facility] DATE CREATED AUTHOR AUTHOR'S ORGANIZ ATION 08/12/2023 [facility] ([place]) Reason for Visit (unrecogniz ed section and content) Status Reason Specialty Diagnoses / Procedures Referred By Contact Referred To Contact Closed Specialty Services Required/Patien t's Best Interest Pulmonology Diagnoses Nocturnal hypoxia Asthma, unspecified asthma severity, unspecified whether complicated, unspecified whether persistent Sandra Law MD [address] [place] [address] Janis Sinclair MD [address] [place] [id number] Status Reason Specialty Diagnoses / Procedures Referre d By Contact Referred To Contact Closed Pulmonology Diagnoses Asthma, unspecified asthma severity, unspecified whether complicated, unspecified whether persistent Procedures Complete PFT with FeNO Janis Sinclair MD [address] [place] [id number] Reason Comments Follow-up after testing Reason Comments Follow-up asthma Reason Comments Other M54.17 Jamshid Rosales RRT - 10/03/2019 1:00 PM EST Procedure Notes (renetta d section and content) Procedure(s): FENO TEST FENO levels prior to pulmonary function testing 17ppb documented in this encounter <item><item> Privacy Markings (unrecogniz ed section and content) Section Author: Jocelyn Nolan PROHIBITION ON REDISCLOSURE OF CONFIDENTIAL INFORMATION This notice accompanies a disclosure of information concerning a client made to you with the consent of such client. Section Author: Jocelyn Nolan PROHIBITION ON REDISCLOSURE OF CONFIDENTIAL INFORMATION This notice accompanies a disclosure of information concerning a client made to you with the consent of such client. Patient Care team informatio n (unrecognized section and content) FOR RECORDS PERTAINING TO PATIENTS WHO ARE OR HAVE BEEN ENROLLED IN A CHEMICAL DEPENDENCY/SUBSTANCEABUSE PROGRAM, SOME INFORMATION MAY BE OMITTED. This clinical summary was aggregated from multiple sources. Caution should be exercised in using it in the provision of clinical care. This summary normalizes information from multiple sources, and as a consequence, information in this document may materially change the coding, format and clinical context of patient data. In addition, data may be omitted in some cases. CLINICAL DECISIONS SHOULD BE BASED ON THE PRIMARY CLINICAL RECORDS. [facility]. provides no warranty or guarantee of the accuracy or completeness of information in this document.
== END | disposition home or self-care (01) ==
PROVIDERS: PCP Internal Medicine; Referring Provider Clinical Nurse Specialist Adult Health; Visit Provider Clinical Nurse Specialist Adult Health
DX: M54.16 Radiculopathy, lumbar region (principal)
CPT/HCPCS: 72148

== ENCOUNTER 2023-10-20 11:30 | Emergency (ER) | payer MEDICARE, OTHER, SELFPAY ==
[2023-10-20 11:40] VITALS: BP 148/85; PULSE 87; RESP 16; TEMP 36.2; O2SAT 96; BMI 26.6
[2023-10-20 11:43] VITALS: BP 148/85; PULSE 87; RESP 16; TEMP 36.2; O2SAT 96
[2023-10-20 14:27] VITALS: BP 140/79; PULSE 85; RESP 20; TEMP 36.3; O2SAT 99
--- NOTE | 2023-11-18 11:45 | EDS_ITS ---
History of Present Illness Detail of Chief Complaint: Low back pain. Informant: patient Onset/Context/Timing Onset: Days Context: Gradual Onset Timing: Continuous Quality: Dull and Aching Location: Lumbar Current Severity: Moderate Maximum Severity: Moderate Worsened by: improves with Movement Relieved by: Nothing Associated Symptoms Associated Symptoms: Radiation to Left Leg; Negative for Numbness or Tingling Narrative Narrative: 67-year-old male history of degenerative disc disease and lumbar stenosis of his lower back. Had a recent MRI showing the same. Planing of low back pain radiating to his left leg. Denies any bowel or bladder incontinence. No fall or trauma. No fever. (Discharge is being dictated after I evaluated the patient almost 4 weeks ago. It was inadvertently missed or the dictation was lost on the computer. I am generating the dictation and exam to the best of my recollection of this evaluation.) Prior similar symptoms: Yes Recent Illness/Hospitalization: No PFSH PFSH Medical History Alcohol use Arthritis Asthma Back pain Blood glucose elevated Easy bruising Health care maintenance High cholesterol History of back problems History of edema History of pain when walking History of stress test Hormone deficiency Hyperlipidemia Hypertension Leg cramps Lumbar radiculopathy Non-smoker Osteoarthritis Seasonal allergies Skin cancer Testosterone deficiency Wears glasses Home Medications cholecalciferol (vitamin D3) 25 mcg (1,000 unit) capsule 25 mcg PO DAILY 02/16/23 [History Last Taken Unknown] fluticasone furoate 100 mcg-vilanterol 25 mcg/dose inhalation powder (Breo Ellipta) 1 inh inhalation DAILY 02/16/23 [History Last Taken Unknown] hydrocodone 5 mg-acetaminophen 300 mg tablet 1 tab PO Q6H PRN pain 3 days #12 tabs 10/09/23 [Rx Last Taken Unknown] albuterol sulfate 90 mcg/actuation aerosol inhaler 2 puff inhalation Q6H PRN shortness of breath or wheezing #8.5 grams 10/10/23 [Rx Last Taken Unknown] atorvastatin 20 mg tablet 20 mg PO DAILY #90 tabs 10/10/23 [Rx Last Taken Unknown] diltiazem HCl 180 mg capsule,extended release 24 hr 180 mg PO DAILY #90 caps 10/23/23 [Rx Last Taken Unknown] hydrochlorothiazide 12.5 mg tablet 12.5 mg PO DAILY #90 tabs 10/23/23 [Rx Last Taken Unknown] lisinopril 10 mg tablet 10 mg PO DAILY #90 tabs 10/23/23 [Rx Last Taken Unknown] naproxen sodium 220 mg capsule (Aleve) 440 mg PO DAILY PRN pain 11/14/23 [History Last Taken Unknown] testosterone 1 % (50 mg/5 gram) transdermal gel packet 1 packet transdermal .QOD 11/14/23 [History Last Taken Unknown] Allergy/AdvReac Type Severity Reaction Status Date / Time No Known Allergies Allergy Verified 11/14/23 10:52 Family History Other Alcoholism Arthritis Colon cancer Heart disease Hypertension Respiratory disease Surgical History History of back surgery History of knee replacement History of surgery on left wrist Hx of shoulder surgery Hx of thumb surgery Social History Smoking Status: Never smoker alcohol intake: current details: 2-4 a week substance use type: does not use what type of physical activity do you participate in: walking frequency: 3-4 times per week ROS ROS ED ROS Narrative Denies recent illness. Right no fever. No bowel or bladder incontinence. Review of Systems ROS Unobtainable: Denies due to encephalopathy Constitutional Constitutional ED: Denies chills or fever(s) Eyes Eyes: Denies blurry vision ENT ENT ED: Denies ear pain Cardiovascular Cardiovascular: Denies chest pain or palpitations Respiratory/Chest Respiratory/Chest: Denies dyspnea or dyspnea on exertion Gastrointestinal Gastrointestinal: Denies abdominal pain or constipation Genitourinary Genitourinary ED: Denies dysuria or hematuria Musculoskeletal Musculoskeletal: Denies arthralgias, back pain, myalgias or neck pain Integumentary Denies abscess or Abrasions Neurologic Neurologic: Denies headache(s) Psychiatric Psychiatric: Denies anxiety or depression Endocrine Endocrinology: Denies cold intolerance Hematologic/Lymphatic Hematologic/Lymphatic: Denies easy bleeding, easy bruising or lymphadenopathy Allergic/Immunologic Allergic/Immunologic ED: Denies mouth swelling, tongue swelling or urticaria EXAM Physical Exam Narrative Exam Narrative: Well-appearing 67-year-old male. Vital signs stable afebrile. H EENT exam unremarkable. Lungs clear. Heart regular rhythm. Abdomen soft, nontender nondistended normal bowel sounds no peritoneal signs. Back exam unremarkable. No signs of trauma. Both lower extremities neurovascularly intact with normal strength. Range of motion and sensation. No cauda equina. Positive straight leg raise test on left. Neurologically is awake and alert with no focal motor deficits. Const Positive well nourished and well developed; Negative for cachectic, contractures or unkempt General Appearance ED: well developed and NAD; Negative for unkempt, cachectic, contractures or pallor Nutritional Appearance: Negative for cachectic HEENT Reports moist mucous membranes; Denies dry mucous membranes Negative for trauma or tenderness Mouth ED: No dry mucous membranes Mouth: No dry mucous membranes Eyes PERRL and EOMs intact bilaterally Neck no lymphadenopathy, supple and no JVD General: Negative for tenderness Thyroid: Negative for other Resp normal respiratory effort and clear to auscultation bilaterally Auscultation: Negative for rales, rhonchi or wheezes Cardio regular rate, regular rhythm, S1 normal heart sound, S2 normal heart sound and no murmurs Rhythm: Negative for abnormal rhythm GI normal to inspection, nondistended, normoactive bowel sounds, soft to palpation, non-tender, non-distended and no masses Inspection: Negative for abdominal distention Palpation: Negative for tender, guarding or rebound tenderness present Back/Spine normal to inspection and no thoracic nor lumbar tenderness General Back: Negative for CVA tenderness Cervical Spine: Negative for cervical spine tenderness Thoracic Spine / Upper Back: Negative for paraspinal muscle tenderness Lumbar Spine / Lower Back: straight leg raise positive - left; Negative for ROM limited Extremity normal to inspection and no clubbing, cyanosis or edema General Extremety ED: Negative for edema or tenderness General Extremity: Negative for edema Neuro oriented x3 and no sensory deficits noted Sensorium / Orientation: alert; Negative for confused, lethargic or stuporous Motor Exam: strength 5/5 throughout Psych mental status grossly normal Appearance: Negative for unkempt Attitude: No agitated Mood & Affect: Negative for depressed, sad or tearful Skin no rashes or lesions noted and no wounds General Skin Exam: Negative for jaundice or pallor Lesions: No lesion noted Rashes: No rashes noted Trauma: Negative for abrasion or puncture Wounds: Negative for wounds noted MDM MDM MDM Narrative Medical decision making narrative: 67-year-old male low back pain with a history of degenerative disc disease in his back and a recent MRI showing the same. I suspect this is secondary to her lumbar radiculopathy with radiation to his leg. Currently is having no cauda equina. No saddle anesthesia. No bowel or bladder incontinence. No fever. No think needs any further workup. Will be discharged home. Follow-up with his back surgeon. Return if worse. Lab Data Labs: Laboratory Results - last 24 hr 11/21/23 09:47 Hepatitis A Ab Total Negative Discharge Plan Admission Attending Provider: Robinson Hadley Primary Care Provider: Mercy Perry Discharge Orders/Prescriptions Prescriptions: No Action fluticasone furoate-vilanterol [Breo Ellipta] 100-25 mcg/dose blister with device 1 inh inhalation DAILY cholecalciferol (vitamin D3) 25 mcg (1,000 unit) capsule 25 mcg PO DAILY diltiazem HCl 180 mg capsule,extended release 24hr 180 mg PO DAILY Qty: 90 1RF lisinopril 10 mg tablet 10 mg PO DAILY Qty: 90 1RF hydrochlorothiazide 12.5 mg tablet 12.5 mg PO DAILY Qty: 90 1RF hydrocodone-acetaminophen 5-300 mg tablet 1 tab PO Q6H PRN (Reason: pain) 3 Days Qty: 12 0RF naproxen sodium [Aleve] 220 mg capsule 440 mg PO DAILY PRN (Reason: pain) testosterone 1 % (50 mg/5 gram) gel in packet 1 packet transdermal .QOD albuterol sulfate 90 mcg/actuation HFA aerosol inhaler 2 puff inhalation Q6H PRN (Reason: shortness of breath or wheezing) Qty: 8.5 1RF atorvastatin 20 mg tablet 20 mg PO DAILY Qty: 90 1RF Other Ambulatory Orders: 12 Lead EKG (Routine) Timeframe: 20231121 Location: None Selected Ordered By: Dr. Robinson Hadley Referrals / Follow Up: Mercy Perry MD [Primary Care Provider] - Disposition Disposition (needs filled in before D/C Order can be placed): Home, Self Care What to do if you have Problems For any increased pain, shortness of breath, bleeding, nausea or vomiting, chest pain, or any unexpected problems, contact your Primary Care Provider. Call [facility] ([phone]) or report to the closest Emergency Room. Call 911 if necessary.
== END 2023-10-20 14:55 | disposition home or self-care (01) ==
PROVIDERS: Emergency Provider Emergency Medicine; PCP Internal Medicine; Visit Provider Emergency Medicine
DX: M54.50 Low back pain, unspecified (principal); E78.00 Pure hypercholesterolemia, unspecified; I10 Essential (primary) hypertension; Z85.828 Personal history of other malignant neoplasm of skin; J45.909 Unspecified asthma, uncomplicated; Z79.51 Long term (current) use of inhaled steroids; Z79.899 Other long term (current) drug therapy; R60.9 Edema, unspecified; Z96.659 Presence of unspecified artificial knee joint
CPT/HCPCS: 99282

== ENCOUNTER 2023-12-04 10:28 | Observation (INO) | payer MEDICARE, OTHER, SELFPAY ==
--- NOTE | 2023-11-21 09:28 | EKG12_ITS ---
Test Reason : PREOP Blood Pressure : / mmHG Vent. Rate : 089 BPM Atrial Rate : 089 BPM P-R Int : 190 ms QRS Dur : 084 ms QT Int : 348 ms P-R-T Axes : 050 -02 035 degrees QTc Int : 423 ms Normal sinus rhythm Normal ECG Confirmed by Silverio Chase ([id number]), editor sound HAVEN PICHARDO ([id number]) on 11/22/2023 9:42:28 AM Referred By: Robinson Hadley Confirmed By:Silverio Chase
[2023-11-21 10:06] LABS: Absolute Lymphocyte Count 1.52 X10^3/uL (0.83-4.51); Absolute Neutrophil Count 6.3 X10^3/uL (2.0-7.7); Basophil# 0.07 X10^3/uL; Basophil% 0.8 % (0-1); Eosinophil# 0.21 X10^3/uL; Eosinophils% 2.3 % (0-5); Hematocrit 48.3 % (40-54); Hemoglobin 15.8 g/dL (13.0-16.5); Lymphocyte # 1.52 X10^3/ul (0.83-4.51); Lymphocyte % 16.4 % (19-41); Mean Corp Hgb Conc 32.7 g/dL (32-36); Mean Corpuscular Hgb 29.3 pg (27.0-32.0); Mean Corpuscular Volume 89.4 fL (80-94); Mean Platelet Vol. 9.6 fl (6.2-12.0); Monocyte% 11.9 % (0-10); NRBC Flagged by Analyzer 0 % (0-5); Neutrophil # 6.25 X10^3/uL (2.7-7.7); Neutrophil % 67.4 % (47-70); Platelet Count 285 K/mm3 (150-450); RBC Distribution Width CV 13.8 % (11.6-14.6); RBC Distribution Width SD 44.7 fl (35.1-43.9); White Blood Count 9.3 K/mm3 (4.4-11.0)
[2023-11-21 10:15] LABS: Prothrombin Time (Protime)PT. 13.5 SECONDS (11.7-14.9)
[2023-11-21 10:16] LABS: Partial Thromboplast Time 30.3 Seconds (24.1-36.2)
[2023-11-21 10:39] LABS: AST(SGOT) 25 U/L (15-37); Alanine Aminotransfer ALT/SGPT 35 U/L (16-61); Albumin, Serum 3.7 g/dL (3.2-5.0); Alkaline Phosphatase 28 U/L (45-117); Anion Gap 8 (5-15); BUN 21 mg/dL (7-18); BUN/Creat Ratio 29.1 RATIO (10-20); Bilirubin, Direct 0.12 mg/dL (0.00-0.30); Calcium,Total 9.3 mg/dL (8.5-10.1); Chloride 107 mmol/L (98-107); Creatinine, Serum 0.72 mg/dL (0.70-1.30); EST Glomerular Filtration Rate 115 mL/min (>60); Est Glom Filt Rate - Afr Amer 139 mL/min (>60); Globulin 3.2 g/dL (2.2-4.2); Glucose 84 mg/dL (74-106); Magnesium 2.4 mg/dL (1.6-2.6); Potassium 3.8 mmol/L (3.5-5.1); Protein, Total 6.9 g/dL (6.4-8.2); Sodium Level 140 mmol/L (136-145)
[2023-11-21 10:59] LABS: HIV - WCH Non-Reactive (Nonreactive)
[2023-11-21 11:20] LABS: Hepatitis B Surface Antibody Reactive; Hepatitis C Antibody Non-Reactive (Nonreactive)
[2023-11-22 05:07] LABS: Hepatitis A AB, Total Negative (Negative)
--- NOTE | 2023-11-22 20:25 | ED.VIS.BACK ---
HPI History of Present Illness Detail of Chief Complaint: Low back pain. Informant: patient Onset/Context/Timing Onset: Days Context: Gradual Onset Timing: Continuous Quality: Dull and Aching Location: Lumbar Current Severity: Moderate Maximum Severity: Moderate Worsened by: improves with Movement Relieved by: Nothing Associated Symptoms Associated Symptoms: Radiation to Left Leg; Negative for Numbness or Tingling Narrative Narrative: 67-year-old male history of degenerative disc disease and lumbar stenosis of his lower back. Had a recent MRI showing the same. Planing of low back pain radiating to his left leg. Denies any bowel or bladder incontinence. No fall or trauma. No fever. (Discharge is being dictated after I evaluated the patient almost 4 weeks ago. It was inadvertently missed or the dictation was lost on the computer. I am generating the dictation and exam to the best of my recollection of this evaluation.) Prior similar symptoms: Yes Recent Illness/Hospitalization: No PFSH PFSH Medical History Alcohol use Arthritis Asthma Back pain Blood glucose elevated Easy bruising Health care maintenance High cholesterol History of back problems History of edema History of pain when walking History of stress test Hormone deficiency Hyperlipidemia Hypertension Leg cramps Lumbar radiculopathy Non-smoker Osteoarthritis Seasonal allergies Skin cancer Testosterone deficiency Wears glasses Home Medications cholecalciferol (vitamin D3) 25 mcg (1,000 unit) capsule 25 mcg PO DAILY 02/16/23 [History Last Taken Unknown] fluticasone furoate 100 mcg-vilanterol 25 mcg/dose inhalation powder (Breo Ellipta) 1 inh inhalation DAILY 02/16/23 [History Last Taken Unknown] hydrocodone 5 mg-acetaminophen 300 mg tablet 1 tab PO Q6H PRN pain 3 days #12 tabs 10/09/23 [Rx Last Taken Unknown] albuterol sulfate 90 mcg/actuation aerosol inhaler 2 puff inhalation Q6H PRN shortness of breath or wheezing #8.5 grams 10/10/23 [Rx Last Taken Unknown] atorvastatin 20 mg tablet 20 mg PO DAILY #90 tabs 10/10/23 [Rx Last Taken Unknown] diltiazem HCl 180 mg capsule,extended release 24 hr 180 mg PO DAILY #90 caps 10/23/23 [Rx Last Taken Unknown] hydrochlorothiazide 12.5 mg tablet 12.5 mg PO DAILY #90 tabs 10/23/23 [Rx Last Taken Unknown] lisinopril 10 mg tablet 10 mg PO DAILY #90 tabs 10/23/23 [Rx Last Taken Unknown] naproxen sodium 220 mg capsule (Aleve) 440 mg PO DAILY PRN pain 11/14/23 [History Last Taken Unknown] testosterone 1 % (50 mg/5 gram) transdermal gel packet 1 packet transdermal .QOD 11/14/23 [History Last Taken Unknown] Allergy/AdvReac Type Severity Reaction Status Date / Time No Known Allergies Allergy Verified 11/14/23 10:52 Family History Other Alcoholism Arthritis Colon cancer Heart disease Hypertension Respiratory disease Surgical History History of back surgery History of knee replacement History of surgery on left wrist Hx of shoulder surgery Hx of thumb surgery Social History Smoking Status: Never smoker alcohol intake: current details: 2-4 a week substance use type: does not use what type of physical activity do you participate in: walking frequency: 3-4 times per week ROS ROS ED ROS Narrative Denies recent illness. Right no fever. No bowel or bladder incontinence. Review of Systems ROS Unobtainable: Denies due to encephalopathy Constitutional Constitutional ED: Denies chills or fever(s) Eyes Eyes: Denies blurry vision ENT ENT ED: Denies ear pain Cardiovascular Cardiovascular: Denies chest pain or palpitations Respiratory/Chest Respiratory/Chest: Denies dyspnea or dyspnea on exertion Gastrointestinal Gastrointestinal: Denies abdominal pain or constipation Genitourinary Genitourinary ED: Denies dysuria or hematuria Musculoskeletal Musculoskeletal: Denies arthralgias, back pain, myalgias or neck pain Integumentary Denies abscess or Abrasions Neurologic Neurologic: Denies headache(s) Psychiatric Psychiatric: Denies anxiety or depression Endocrine Endocrinology: Denies cold intolerance Hematologic/Lymphatic Hematologic/Lymphatic: Denies easy bleeding, easy bruising or lymphadenopathy Allergic/Immunologic Allergic/Immunologic ED: Denies mouth swelling, tongue swelling or urticaria EXAM Physical Exam Narrative Exam Narrative: Well-appearing 67-year-old male. Vital signs stable afebrile. H EENT exam unremarkable. Lungs clear. Heart regular rhythm. Abdomen soft, nontender nondistended normal bowel sounds no peritoneal signs. Back exam unremarkable. No signs of trauma. Both lower extremities neurovascularly intact with normal strength. Range of motion and sensation. No cauda equina. Positive straight leg raise test on left. Neurologically is awake and alert with no focal motor deficits. Const Positive well nourished and well developed; Negative for cachectic, contractures or unkempt General Appearance ED: well developed and NAD; Negative for unkempt, cachectic, contractures or pallor Nutritional Appearance: Negative for cachectic HEENT Reports moist mucous membranes; Denies dry mucous membranes Negative for trauma or tenderness Mouth ED: No dry mucous membranes Mouth: No dry mucous membranes Eyes PERRL and EOMs intact bilaterally Neck no lymphadenopathy, supple and no JVD General: Negative for tenderness Thyroid: Negative for other Resp normal respiratory effort and clear to auscultation bilaterally Auscultation: Negative for rales, rhonchi or wheezes Cardio regular rate, regular rhythm, S1 normal heart sound, S2 normal heart sound and no murmurs Rhythm: Negative for abnormal rhythm GI normal to inspection, nondistended, normoactive bowel sounds, soft to palpation, non-tender, non-distended and no masses Inspection: Negative for abdominal distention Palpation: Negative for tender, guarding or rebound tenderness present Back/Spine normal to inspection and no thoracic nor lumbar tenderness General Back: Negative for CVA tenderness Cervical Spine: Negative for cervical spine tenderness Thoracic Spine / Upper Back: Negative for paraspinal muscle tenderness Lumbar Spine / Lower Back: straight leg raise positive - left; Negative for ROM limited Extremity normal to inspection and no clubbing, cyanosis or edema General Extremety ED: Negative for edema or tenderness General Extremity: Negative for edema Neuro oriented x3 and no sensory deficits noted Sensorium / Orientation: alert; Negative for confused, lethargic or stuporous Motor Exam: strength 5/5 throughout Psych mental status grossly normal Appearance: Negative for unkempt Attitude: No agitated Mood & Affect: Negative for depressed, sad or tearful Skin no rashes or lesions noted and no wounds General Skin Exam: Negative for jaundice or pallor Lesions: No lesion noted Rashes: No rashes noted Trauma: Negative for abrasion or puncture Wounds: Negative for wounds noted MDM MDM MDM Narrative Medical decision making narrative: 67-year-old male low back pain with a history of degenerative disc disease in his back and a recent MRI showing the same. I suspect this is secondary to her lumbar radiculopathy with radiation to his leg. Currently is having no cauda equina. No saddle anesthesia. No bowel or bladder incontinence. No fever. No think needs any further workup. Will be discharged home. Follow-up with his back surgeon. Return if worse. Lab Data Labs: Laboratory Results - last 24 hr 11/21/23 09:47 Hepatitis A Ab Total Negative Discharge Plan Admission Attending Provider: Robinson Hadley Primary Care Provider: Mercy Perry Discharge Orders/Prescriptions Prescriptions: No Action fluticasone furoate-vilanterol [Breo Ellipta] 100-25 mcg/dose blister with device 1 inh inhalation DAILY cholecalciferol (vitamin D3) 25 mcg (1,000 unit) capsule 25 mcg PO DAILY diltiazem HCl 180 mg capsule,extended release 24hr 180 mg PO DAILY Qty: 90 1RF lisinopril 10 mg tablet 10 mg PO DAILY Qty: 90 1RF hydrochlorothiazide 12.5 mg tablet 12.5 mg PO DAILY Qty: 90 1RF hydrocodone-acetaminophen 5-300 mg tablet 1 tab PO Q6H PRN (Reason: pain) 3 Days Qty: 12 0RF naproxen sodium [Aleve] 220 mg capsule 440 mg PO DAILY PRN (Reason: pain) testosterone 1 % (50 mg/5 gram) gel in packet 1 packet transdermal .QOD albuterol sulfate 90 mcg/actuation HFA aerosol inhaler 2 puff inhalation Q6H PRN (Reason: shortness of breath or wheezing) Qty: 8.5 1RF atorvastatin 20 mg tablet 20 mg PO DAILY Qty: 90 1RF Other Ambulatory Orders: 12 Lead EKG (Routine) Timeframe: 20231121 Location: None Selected Ordered By: Dr. Robinson Hadley Referrals / Follow Up: Mercy Perry MD [Primary Care Provider] - Disposition Disposition (needs filled in before D/C Order can be placed): Home, Self Care
--- NOTE | 2023-11-30 10:53 | PCM.HP.BLA ---
History and Physical [id number] Acct: [id number] Name: NEGRITA CASTAÑEDA Rep #: [id number] : 1955 Provider: Dr. Robinson Hadley DO Age/Sex: 67/M [place] [facility] [place] Status: Signed Intake Vital Signs 03/27/2310:32 03/29/2309:27 Height 6 ft 1 in 6 ft 1 in Weight: 208 lb 2 oz 206 lb BMI 27.4 27.1 BP 122/80 H Blood Pressure Location Lt brachial Position Sitting Respiration 18 Pulse 75 Pulse Source Monitor Temp 97.5 F L Temp Source Temporal Pulse Oximetry (%) 97 Oxygen Delivery Method room air Intake Visit Reasons: LUMBAR SPINE Chief Complaint: lumbar spien Is patient in pain?: Yes (lumbar spine ) Pain scale (1-10): 3 Allergies No Known Allergies Allergy (Unverified 03/29/23 09:28) Medications atorvastatin 20 mg tablet 20 mg PO DAILY 02/16/23 [History Confirmed 03/29/23] cholecalciferol (vitamin D3) 25 mcg (1,000 unit) capsule 25 mcg PO DAILY 02/16/23 [History Confirmed 03/29/23] diltiazem HCl 180 mg capsule,extended release 24 hr 180 mg PO DAILY 02/16/23 [History Confirmed 03/29/23] fluticasone furoate 100 mcg-vilanterol 25 mcg/dose inhalation powder (Breo Ellipta) 1 inh inhalation DAILY 02/16/23 [History Confirmed 03/29/23] hydrochlorothiazide 12.5 mg tablet 12.5 mg PO DAILY 02/16/23 [History Confirmed 03/29/23] lisinopril 10 mg tablet 10 mg PO DAILY 02/16/23 [History Confirmed 03/29/23] testosterone 1 % (50 mg/5 gram) transdermal gel packet 1 packet transdermal DAILY 02/16/23 [History Confirmed 03/29/23] albuterol sulfate 90 mcg/actuation aerosol inhaler 2 puff inhalation Q6H PRN shortness of breath or wheezing #8.5 grams 03/27/23 [Rx Confirmed 03/29/23] PFSH Medical History Asthma Health care maintenance High cholesterol History of back problems Hormone deficiency Hypertension Osteoarthritis Seasonal allergies Skin cancer Testosterone deficiency Surgical History History of back surgery History of knee replacement Hx of shoulder surgery Hx of thumb surgery Family History Other Alcoholism Arthritis Colon cancer Heart disease Hypertension Respiratory disease Social History Smoking Status: Never smoker alcohol intake: current details: 2-4 a week substance use type: does not use what type of physical activity do you participate in: walking frequency: 3-4 times per week HPI LUMBAR SPINE Details: Parts of this documentation were recorded by a scribe, this documentation accurately reflects the service provided and the decisions made by me, Dr. Robinson Hadley, DO 03/29/23926. NEGRITA CASTAÑEDA is a 67 year old M here today for evaluation of lumbar spine pain. He complains of low back pain that radiates down into his legs bilaterally. He denies numbness and tingling. He has been seeing Dr. Kinney for lumbar injections and he reports they are no longer effective in alleviating his pain.He rates his pain 3/10 today but states it is worse with ambulation or activity. He reports at times his legs give out on him while ambulating. He reports previous L4-L5 back surgery in 1975. He denies injury or trauma to the low back. Eron is a most pleasant gentleman 67 years old who presents in the company of his Bertha. He recalls that in 1975 that he had right leg pain and the surgery was done at the L4-5 level and it made his leg pain go away. Overall he is done well all these years until perhaps a year or so ago. He has been told that he has spinal stenosis. He has had [address] Kinney in [place]. The first 1 helped about 2 months. The second 1 helped him for about 1 month. And the third 1 which she had early in February only helped him for a couple of weeks. Thus diminishing returns. Overall his low back pain is worse than his leg pain. It goes to the left and down the thigh but does not go below his knee. He feels he could easily walk 1/4 mile. He is able to ride a bike 6 or 7 miles. It is a stationary bike but nonetheless he is able to do it. On examination he has excellent motor strength of all the major muscle groups of both lower extremities. He can forward bend to within a foot of the floor with his hands. He has no pain at this time with flexion or extension of his lumbar spine. He has no muscle atrophy. He has absent Achilles reflexes bilaterally and 1+ patellar reflexes bilaterally. He has no long tract signs. Clonus is absent and Babinski's are downgoing. Plain x-rays taken in the office demonstrate some mild degenerative changes and evidence of the laminectomy that he had at L4-5 on the right side. He needs an MRI scan of the lumbar spine with and without contrast. He undoubtedly has spinal stenosis probably at the L4-5 level. In addition he is very claustrophobic and he will definitely need something to relax him in order to get this MRI scan done at [facility]. I will give him a Valium 5 mg to take just as he leaves his home in [facility] for the MRI study. Coding Level of Care Code Off vis,new,level 3 Diagnoses Spinal stenosis of lumbar region with radiculopathy M48.061; M54.16
[2023-12-04] VITALS (22 sets, daily range): BP systolic 116–166; BP diastolic 65–106; PULSE 72–110; RESP 15–20; TEMP 36.2–37.2; O2SAT 92–99; BMI 27.1
[2023-12-04] MEDS: Lactated Ringers 1,000 ML 15 ML IV ×2 (06:04→11:23)
[2023-12-04] MEDS: Magnesium 1 GM over 15 mins IV (06:04)
[2023-12-04] MEDS: Acetaminophen 500 MG Tablet 1000 MG PO ×3 (06:04→22:18)
[2023-12-04 06:08] LABS: Bedside Glucose 65 mg/dL (74-106)
[2023-12-04] MEDS: Cefazolin 2 GM in 0.9% Normal Saline (100mL Bag) 100 ML IV (08:29)
--- NOTE | 2023-12-04 08:40 | RAD_ITS ---
STUDY: X-RAY - LUMBAR SPINE REASON FOR EXAM: Male, 68 years old. LAMINECTOMY TECHNIQUE: 1 view(s) of the lumbar spine were obtained. COMPARISON: Comparison is made with prior study March 29, 2023. FINDINGS: The localization instrument is seen posterior to the L3-L4 disc space level. RAD/Spine 1 View Any Level IMPRESSION: The localization instrument is seen posterior to the L3-L4 disc space level. Electronically Signed: Robert Green MD at 9:10 EDT ,
[2023-12-04] MEDS: THROMBIN (RECOMBINANT) 20,000 UNIT VIAL 20000 UNIT TOPICAL (09:27)
--- NOTE | 2023-12-04 10:35 | OP.PCM_ITS ---
Report of Operation Description of Surgical Findings:: Preoperative diagnosis: Spinal stenosis L3-4 and facet cyst right L3-4 facet Postoperative diagnosis: Same Procedure: Decompression laminectomy with removal of cyst L3-4 CPT code 60021 Surgeon: Dr. Hadley Cold Rolling Coordinator: Dr. De Paz Anesthesia: General endotracheal administered by [facility] EBL: Less than 50 cc Drains: None Complications: None Procedure: Patient was taken to the OR where he was placed under general endotracheal anesthesia. He was then placed in a prone position on the Duy frame. After appropriate positioning with care to protect his bony prominences his genitalia his brachial plexus on both sides of the ulnar nerves of both elbows the back was prepped and draped in the standard fashion. I then made a longitudinal incision over at the top of the old incision from his past surgery in 1975. I made at the level thought to be L3-4. Subcutaneous tissues were then opened the length of the skin incision. I first opened the lumbar fascia to the left of the spinous processes and elevated the paravertebral muscles off the lamina of L3 and the top of the lamina of L4. Bleeders were controlled with cautery. I then packed the left side after first thoroughly irrigating it. We then opened the lumbar fascia to the right of the spinous processes and elevated the paravertebral muscles off the lamina for and the top of the lamina 5. The super slide retractor was then put in place. Bleeders were controlled with cautery. I then removed the spinous process of L4 using double-action rongeurs. I also remove the interspinous ligament. I then used curettes to release the ligamentum flavum off the underside of the lamina of L3. The laminectomy was then carried out with 45 degree Kerrison rongeurs. We released the ligamentum flavum all the way up to the top of it. I then split the ligamentum flavum longitudinally and began its removal with 45 degree Kerrison rongeurs we also performed laminectomy at the very top of the L4 lamina on both sides with the 45 degree Kerrison rongeurs. We then open the lateral recesses with 45 degree Kerrison rongeurs removing all the ligamentum flavum and the lateral recesses. Once this was done we observed the strange cyst once we opened it we found what appeared to be steroid injections in the cyst. The entire cyst was removed. We then checked the foramen on both sides and both the L4 nerve roots were open with no pressure at all on them. Note in the course of the case we thoroughly irrigated with copious amounts of sterile saline repeatedly. At the end of the case we had good hemostasis. Amniotic membrane was then placed over the laminectomy site. This is to prevent adhesions in the future. Gelfoam was placed over the top of that. We did not feel that there was a need for a drain. I then closed the lumbar fascia using [id number] suture with #1 Vicryl for closure of the subcutaneous tissues with 2-0 Vicryl in interrupted fashion and the skin was approximated using skin clips. Sterile dressings were then applied. The patient was then recovered in the OR moved to his hospital bed and taken to recovery in satisfactory condition. This the end of operative summary Dontae Yadav. This is Dr. Hadley dictating.
[2023-12-04] MEDS: Lactated Ringers 1,000 ML 100 ML IV (13:56)
[2023-12-04] MEDS: oxyCODONE 5 MG Tablet PO (13:56)
[2023-12-04] MEDS: Morphine 4 MG/ML Syringe IV ×3 (15:02→20:17)
[2023-12-04] MEDS: 0.9% Saline Lock 10 ML Syringe IV ×3 (15:02→20:18)
[2023-12-04] MEDS: Cefazolin 1 GM/50 ML BAG IV ×2 (16:33→23:24)
[2023-12-04] MEDS: Ensure Surgery 237 ML LIQUID PO (16:55)
--- NOTE | 2023-12-04 17:02 | PCM.PN.HOSP ---
Subjective Subjective 68-year-old male presents to the hospital for an elective decompression laminectomy with removal of the cyst from L3-4. He does have a history of spinal stenosis as well as a facet cyst on the right that was creating nerve compression on the left. He says that the pain that he was normally under is gone however he is having surgical pain. Denies any change in his medical history. No new medication changes prior to surgery. Objective Data Objective Data Vital Signs: Vital Signs Temp Pulse Resp BP Pulse Ox O2 Del Method O2 Flow Rate 98.5 F 101 H 18 125/65 H 97 Room Air 4 12/04/23 16:02 12/04/23 16:02 12/04/23 16:02 12/04/23 16:02 12/04/23 16:02 12/04/23 16:02 12/04/23 16:02 Oxygen Flow Rate (L/min) 4 Oxygen Delivery Method Room Air Weight: 206 lb Body Mass Index (BMI) 27.1 Intake & Output: Intake and Output for Last 24 Hours 12/03/23 12/04/23 12/05/23 03:59 03:59 03:59 Intake Total 2509.17 / 2509.17 Output Total 320 / 320 Balance 2189.17 / 2189.17 Lab / Micro Data 11/21/23 09:47 11/21/23 09:47 Labs: Laboratory Results - last 24 hr 12/04/23 05:49: POC Glucose 65 L Micro: Microbiology 11/21/23 09:47 Swab (Method) Nasal Screen MRSA/MSSA - Final Radiography Diagnostic Testing: Radiology Impression Spine X-Ray 12/04/23 08:40 IMPRESSION: The localization instrument is seen posterior to the L3-L4 disc space level. Electronically Signed: Robert Green MD at 9:10 EDT , Physical Exam Narrative General: Alert, Oriented x3, Cooperative, No apparent distress HEENT: Atraumatic, PERRLA, EOMI, Normocephalic Oral: Moist Mucosa Neck: Supple, No JVD Lungs: Diminished, Normal air movement, No rhonchi, No wheeze, No rales Cardiovascular: Tachycardic, Regular Rhythm, Normal S1, Normal S2, No murmurs Abdomen: Soft, Non Tender, Non-Distended, No Hepato-splenomegaly Extremities: No edema, Capillary Refill Less than 3 Seconds Skin: Dressing CDI Musculoskeletal: No Tenderness to Palpation of Joints or Extremities Neurological: No focal neurological deficits, Motor Exam 5/5 strength throughout, Sensory exam intact to light touch and pain Psych/Mental Status: Normal Affect, Appropriate Assessment & Plan Assessment/Plan (1) Status post laminectomy: PLAN: Plan 1. Status post decompression laminectomy with removal of cyst from L3-4 on 12/04/2023 ? Pain management per primary ? PT/OT ? Discharge planning per primary 2. Essential HTN/HLD ? Blood pressure stable ? Can resume lisinopril and hydrochlorothiazide as well as Cardizem ? Will monitor his blood pressures and make adjustments as necessary ? Continue with Lipitor DVT: Per primary Charges/Coding Visit Charges Office Visits / Consults: [id number] OV L3 New 30min
[2023-12-04] MEDS: Budesonide Respules 0.5 MG/2 ML AMPUL.NEB. INHALATION (19:24)
[2023-12-04] MEDS: Albuterol 2.5 MG/3 ML VIAL.NEB. INHALATION (19:24)
[2023-12-05] MEDS: Lactated Ringers 1,000 ML 100 ML IV (01:03)
[2023-12-05 02:00] VITALS: RESP 15; O2SAT 95
[2023-12-05] MEDS: Acetaminophen 500 MG Tablet 1000 MG PO ×2 (05:05→13:34)
[2023-12-05 05:07] VITALS: BP 145/82; PULSE 95; RESP 15; TEMP 36.3; O2SAT 96
[2023-12-05] MEDS: Budesonide Respules 0.5 MG/2 ML AMPUL.NEB. INHALATION (06:50)
[2023-12-05] MEDS: Albuterol 2.5 MG/3 ML VIAL.NEB. INHALATION (06:50)
[2023-12-05 06:55] VITALS: PULSE 108; RESP 22; O2SAT 96
[2023-12-05 07:16] LABS: Absolute Lymphocyte Count 0.82 X10^3/uL (0.83-4.51); Absolute Neutrophil Count 10.2 X10^3/uL (2.0-7.7); Basophil# 0.03 X10^3/uL; Basophil% 0.2 % (0-1); Eosinophil# 0.04 X10^3/uL; Eosinophils% 0.3 % (0-5); Hematocrit 42.8 % (40-54); Hemoglobin 13.9 g/dL (13.0-16.5); Lymphocyte # 0.82 X10^3/ul (0.83-4.51); Lymphocyte % 6.5 % (19-41); Mean Corp Hgb Conc 32.5 g/dL (32-36); Mean Corpuscular Hgb 29.6 pg (27.0-32.0); Mean Corpuscular Volume 91.3 fL (80-94); Monocyte# 1.37 X10^3/uL; Monocyte% 10.9 % (0-10); NRBC Flagged by Analyzer 0 % (0-5); Neutrophil # 10.23 X10^3/uL (2.7-7.7); Neutrophil % 81.8 % (47-70); Platelet Count 211 K/mm3 (150-450); RBC Distribution Width CV 14.2 % (11.6-14.6); RBC Distribution Width SD 47.8 fl (35.1-43.9); Red Blood Count 4.69 M/mm3 (4.6-6.2); White Blood Count 12.5 K/mm3 (4.4-11.0)
[2023-12-05] MEDS: Ensure Surgery 237 ML LIQUID PO ×2 (09:59→13:35)
[2023-12-05] MEDS: hydroCHLOROthiazide 12.5mg 12.5 MG PO (10:01)
[2023-12-05] MEDS: Lisinopril 10 MG Tablet PO (10:01)
[2023-12-05] MEDS: dilTIAZem CD 180 MG Capsule PO (10:01)
--- NOTE | 2023-12-05 10:50 | CASEMGMT ---
SHAMA LEONARD Assessment: Face to Face with pt for initial transition planning/care coordination assessment. SHAMA LEONARD introduced self and role at [facility], pt voices understanding and consents to assessment. Pt is A&O x4 and answers all questions appropriately at this time. Pt sitting up in chair in no distress on RA with at bedside. Care providers, pharmacy, and demographics verified/updated. Admitting Dx: lumbar laminectomy decompression PCP:[place] Specialists:Jomar, ortho; Amauri Sinclair pullili; Rufus, pain mgmt Preferred [facility]acy: [facility] Insurance: [facility], O Prescription Benefit: yes LNOK: Bertha Yadav, Living Arrangements: Pt lives with in a single story home with 1 step to enter. Pt reports he is typically I in ADL's and denies concerns at home. Transportation: Pt drives self and denies concerns with transportation. Pt will transport pt until he is able to drive again. DME:cane, FWW, shower bench, grab bars in the bathroom HHC/SNF: Pt has had HHC in the past through [facility], denies SNF stays. Pt states no concerns with going home at time of dc. Pt states no further concerns/needs. CM to follow. Advised pt to ask CM if any further question/concerns/needs arise, voices understanding. Pt Goal: Home Plan: Home Gloria SESAY CM
--- NOTE | 2023-12-05 10:52 | CASEMGMT ---
SHAMA CM in to discuss K[employer]OR form with patient. RN CM explained [employer] form, patient voiced understanding. Pt signed form and filed in chart. Pt provided with a copy of signed [employer]OR form. Patient had no further questions or concerns at this time.
[2023-12-05 11:00] VITALS: BP 129/79; PULSE 99; RESP 16; TEMP 36.9; O2SAT 95
[2023-12-05 13:11] LABS: Anion Gap 6 (5-15); BUN 8 mg/dL (7-18); BUN/Creat Ratio 12.5 RATIO (10-20); Calcium,Total 8.6 mg/dL (8.5-10.1); Chloride 102 mmol/L (98-107); Creatinine, Serum 0.64 mg/dL (0.70-1.30); EST Glomerular Filtration Rate 132 mL/min (>60); Est Glom Filt Rate - Afr Amer 159 mL/min (>60); Glucose 125 mg/dL (74-106); Potassium 3.5 mmol/L (3.5-5.1); Sodium Level 133 mmol/L (136-145)
--- NOTE | 2023-12-05 13:13 | DCINST_ITS ---
Discharge Instructions Activity May shower in (days): 5 May resume sexual activity in: 4-6 weeks Lifting Restrictions: 20# Dressing / Incision Remove Dressing in: 4 days Follow Up Care Test Results: Test results from this visit will be discussed in further detail at your follow- up appointment, if applicable. Discharge Plan Admission Admit Date/Time: 12/04/23 10:28 Primary Reason for Your Visit: back surgery Attending Provider: Cam Ortiz Primary Care Provider: Mercy Perry Consulting Providers: Radha King; Edmundo Floyd; Luna Gifford; Luna Marcial; Eulogio See; Yesys Castro; Val Echevarria; Rajesh Gil; Rajesh Gleason; Jimmy Blakely; Edwin Dumont; Channing Perry; Dilip Pelletier; Dontae Piper; Claudia Tompkins; Cam Ortiz; Nelly Guido; Valdemar Ortega; Zafar Dooley; Daniele Dunaway; Leeann Lerma; Sergio Hunt; Ngozi Crespo NP; Roney William; Robinson Hadley Discharge Orders/Prescriptions Prescriptions: No Action fluticasone furoate-vilanterol [Breo Ellipta] 100-25 mcg/dose blister with device 1 inh inhalation DAILY cholecalciferol (vitamin D3) 25 mcg (1,000 unit) capsule 25 mcg PO DAILY diltiazem HCl 180 mg capsule,extended release 24hr 180 mg PO DAILY Qty: 90 1RF lisinopril 10 mg tablet 10 mg PO DAILY Qty: 90 1RF hydrochlorothiazide 12.5 mg tablet 12.5 mg PO DAILY Qty: 90 1RF hydrocodone-acetaminophen 5-300 mg tablet 1 tab PO Q6H PRN (Reason: pain) 3 Days Qty: 12 0RF naproxen sodium [Aleve] 220 mg capsule 440 mg PO DAILY PRN (Reason: pain) testosterone 1 % (50 mg/5 gram) gel in packet 1 packet transdermal .QOD albuterol sulfate 90 mcg/actuation HFA aerosol inhaler 2 puff inhalation Q6H PRN (Reason: shortness of breath or wheezing) Qty: 8.5 1RF atorvastatin 20 mg tablet 20 mg PO DAILY Qty: 90 1RF Other Ambulatory Orders: 12 Lead EKG (Routine) Timeframe: 20231121 Location: None Selected Ordered By: Dr. Robinson Hadley Referrals / Follow Up: Mercy Perry MD [Primary Care Provider] - Disposition Disposition (needs filled in before D/C Order can be placed): Home, Self Care
--- NOTE | 2023-12-05 13:16 | PCM.DC.SUM ---
Providers Date of Admission: 12/04/23 Primary Care Physician: Dr. Mercy Perry MD Attending Physician: This is discharge summary on Dontae Yadav. This patient was admitted yesterday 03 December. He underwent decompression laminectomy at the L3-4 level. He is doing extremely well. His leg pain is all gone. He has been ambulating in the hospital with no complaints. He is only taking Tylenol for pain. I gave him and his directions regarding his activities. He already has an appointment to see me. I will send him home on a pain medication. I will see him again at the office. Consultations 12/04/23 13:39 Consult: Hospitalist Routine Consulting Provider: [facility] Reason for Consult: Medical Management EMERGENT Consult: No MD Notified: Yes Date Notified: 12/04/23 Time Notified: 14:30 Method of Notification: Text Reason For Visit: Eras Lumbar laminectomy decompressi Diagnosis Discharge Diagnosis (1) Status post laminectomy: Status: Acute Code(s): Z98.890 - Other specified postprocedural states Medications at Discharge Home Medications cholecalciferol (vitamin D3) 25 mcg (1,000 unit) capsule 25 mcg PO DAILY 02/16/23 fluticasone furoate 100 mcg-vilanterol 25 mcg/dose inhalation powder (Breo Ellipta) 1 inh inhalation DAILY 02/16/23 hydrocodone 5 mg-acetaminophen 300 mg tablet 1 tab PO Q6H PRN pain 3 days #12 tabs 10/09/23 albuterol sulfate 90 mcg/actuation aerosol inhaler 2 puff inhalation Q6H PRN shortness of breath or wheezing #8.5 grams 10/10/23 atorvastatin 20 mg tablet 20 mg PO DAILY #90 tabs 10/10/23 diltiazem HCl 180 mg capsule,extended release 24 hr 180 mg PO DAILY #90 caps 10/23/23 hydrochlorothiazide 12.5 mg tablet 12.5 mg PO DAILY #90 tabs 10/23/23 lisinopril 10 mg tablet 10 mg PO DAILY #90 tabs 10/23/23 naproxen sodium 220 mg capsule (Aleve) 440 mg PO DAILY PRN pain 11/14/23 testosterone 1 % (50 mg/5 gram) transdermal gel packet 1 packet transdermal .QOD 11/14/23 Weight / BMI Weight Weight: 206 lb Body Mass Index (BMI) 27.1 ABG / Lab / Microbiology Data 12/05/23 06:19 12/05/23 06:19 Laboratory: Laboratory Results - last 24 hr 12/05/23 06:19: WBC 12.5 H, RBC 4.69, Hgb 13.9, Hct 42.8, MCV 91.3, MCH 29.6, MCHC 32.5, RDW Std Deviation 47.8 H, RDW Coeff of Mary 14.2, Plt Count 211, MPV 10.0, Immature Gran % (Auto) 0.300, Neut % (Auto) 81.8 H, Lymph % (Auto) 6.5 L, [place] % (Auto) 10.9 H, Eos % (Auto) 0.3, Baso % (Auto) 0.2, Absolute Neuts (auto) 10.2 H, Absolute Lymphs (auto) 0.82 L, Nucleated RBC % 0, Sodium 133 L, Potassium 3.5, Chloride 102, Carbon Dioxide 25.0, Anion Gap 6, BUN 8, Creatinine 0.64 L, Estim Creat Clear Calc 97.10, Est GFR (MDRD) Af Amer 159, Est GFR (MDRD) Non-Af 132, BUN/Creatinine Ratio 12.5, Glucose 125 H, Calcium 8.6 Microbiology: Microbiology 11/21/23 09:47 Swab (Method) Nasal Screen MRSA/MSSA - Final D/C Instructions May shower in (days): 5 May resume sexual activity in: 4-6 weeks Meaningful Use Info Meaningful Use Diagnoses (Choose all that apply): None applicable Discharge Plan Admission Admit Date/Time: 12/04/23 10:28 Primary Reason for Your Visit: back surgery Attending Provider: Cam Ortiz Primary Care Provider: Mercy Perry Consulting Providers: Radha King; Edmundo Floyd; Luna Gifford; Luna Marcial; Eulogio See; Yessy Castro; Val Echevarria; Rajesh Gil; Rajesh Gleason; Jimmy Blakely; Edwin Dumont; Channing Perry; Dilip Pelletier; Dontae Piper; Claudia Tompkins; Cam Ortiz; Nelly Guido; Valdemar Ortega; Zafar Dooley; Daniele Dunaway; Leeann Lerma; eSrgio Hunt; Ngozi Crespo NP; Roney William PA; Robinson Hadley Discharge Orders/Prescriptions Prescriptions: No Action fluticasone furoate-vilanterol [Breo Ellipta] 100-25 mcg/dose blister with device 1 inh inhalation DAILY cholecalciferol (vitamin D3) 25 mcg (1,000 unit) capsule 25 mcg PO DAILY diltiazem HCl 180 mg capsule,extended release 24hr 180 mg PO DAILY Qty: 90 1RF lisinopril 10 mg tablet 10 mg PO DAILY Qty: 90 1RF hydrochlorothiazide 12.5 mg tablet 12.5 mg PO DAILY Qty: 90 1RF hydrocodone-acetaminophen 5-300 mg tablet 1 tab PO Q6H PRN (Reason: pain) 3 Days Qty: 12 0RF naproxen sodium [Aleve] 220 mg capsule 440 mg PO DAILY PRN (Reason: pain) testosterone 1 % (50 mg/5 gram) gel in packet 1 packet transdermal .QOD albuterol sulfate 90 mcg/actuation HFA aerosol inhaler 2 puff inhalation Q6H PRN (Reason: shortness of breath or wheezing) Qty: 8.5 1RF atorvastatin 20 mg tablet 20 mg PO DAILY Qty: 90 1RF Other Ambulatory Orders: 12 Lead EKG (Routine) Timeframe: [id number] Location: None Selected Ordered By: Dr. Robinson Hadley Referrals / Follow Up: Mercy Perry MD [Primary Care Provider] - Disposition Disposition (needs filled in before D/C Order can be placed): Home, Self Care
== END 2023-12-05 14:33 | disposition home or self-care (01) ==
LOC: SDC 11:42 → MS3 11:42
PROVIDERS: Family Medicine; Admitting Provider Orthopaedic Surgery; PCP Internal Medicine; Referring Provider Orthopaedic Surgery; Visit Provider Internal Medicine
PROC: (CPT 63030; principal; 2023-12-04 07:00)
DX: M48.061 Spinal stenosis, lumbar region without neurogenic claudication (principal); Z79.899 Other long term (current) drug therapy; J45.909 Unspecified asthma, uncomplicated; E78.00 Pure hypercholesterolemia, unspecified; I10 Essential (primary) hypertension; M19.90 Unspecified osteoarthritis, unspecified site; M54.16 Radiculopathy, lumbar region; R73.9 Hyperglycemia, unspecified; R60.0 Localized edema; Z86.2 Personal history of diseases of the blood and blood-forming organs and certain disorders involving the immune mechanism
CPT/HCPCS: 63047; 00630; 36415; 72020; 80048; 80076; 82962; 83735; 85025; 85610; 85730; 86703; 86706; 86708; 86803; 87081; 93005; 94640; 94668; 96361; 96365; 96366; 96375; 96376; 97162; 99221; 99252; J7120; A4216; G0378; G0463; J2405; J3475

== ENCOUNTER → 2024-01-24 | Outpatient (CLI) | payer MEDICARE, OTHER, SELFPAY ==
[2024-01-24 12:41] LABS: Absolute Lymphocyte Count 1.37 X10^3/uL (0.83-4.51); Absolute Neutrophil Count 6.7 X10^3/uL (2.0-7.7); Basophil# 0.04 X10^3/uL; Basophil% 0.4 % (0-1); Eosinophil# 0.09 X10^3/uL; Hematocrit 50.6 % (40-54); Hemoglobin 15.9 g/dL (13.0-16.5); Lymphocyte # 1.37 X10^3/ul (0.83-4.51); Lymphocyte % 14.8 % (19-41); Mean Corp Hgb Conc 31.4 g/dL (32-36); Mean Corpuscular Hgb 29.9 pg (27.0-32.0); Mean Corpuscular Volume 95.1 fL (80-94); Monocyte# 1.03 X10^3/uL; Monocyte% 11.1 % (0-10); NRBC Flagged by Analyzer 0 % (0-5); Neutrophil # 6.69 X10^3/uL (2.7-7.7); Neutrophil % 72.1 % (47-70); Platelet Count 257 K/mm3 (150-450); RBC Distribution Width CV 13.4 % (11.6-14.6); RBC Distribution Width SD 47.3 fl (35.1-43.9); Red Blood Count 5.32 M/mm3 (4.6-6.2); White Blood Count 9.3 K/mm3 (4.4-11.0)
[2024-01-24 12:53] LABS: ALB/GLOB Ratio 1.1 RATIO (0.9-2.4); AST(SGOT) 30 U/L (15-37); Alanine Aminotransfer ALT/SGPT 38 U/L (16-61); Albumin, Serum 3.6 g/dL (3.2-5.0); Alkaline Phosphatase 31 U/L (45-117); Anion Gap 7 (5-15); BUN 16 mg/dL (7-18); BUN/Creat Ratio 21.4 RATIO (10-20); Calcium,Total 9.3 mg/dL (8.5-10.1); Chloride 103 mmol/L (98-107); Cholesterol 140 mg/dL (200); Creatinine, Serum 0.75 mg/dL (0.70-1.30); EST Glomerular Filtration Rate 110 mL/min (>60); Est Glom Filt Rate - Afr Amer 133 mL/min (>60); Globulin 3.2 g/dL (2.2-4.2); Glucose 85 mg/dL (74-106); High Density Lipoprotein 56 mg/dL; PSA,Total- Diagnostic 1.17 ng/mL (0.0-4.0); Potassium 4.3 mmol/L (3.5-5.1); Protein, Total 6.8 g/dL (6.4-8.2); Sodium Level 138 mmol/L (136-145); Triglycerides 88 mg/dL; Very Low Density Lipoprotein 18 mg/dL (5-40)
== END | disposition home or self-care (01) ==
LOC: BIMLAB 10:34
PROVIDERS: PCP Internal Medicine; Visit Provider Internal Medicine
DX: E78.5 Hyperlipidemia, unspecified (principal); I10 Essential (primary) hypertension; N40.0 Benign prostatic hyperplasia without lower urinary tract symptoms
CPT/HCPCS: 36415; 80053; 80061; 84153; 85025

== ENCOUNTER 2024-03-18 11:30 | Outpatient (RCR) | payer MEDICARE, OTHER, SELFPAY ==
--- NOTE | 2024-02-19 14:43 | HP.PTEVAL ---
Patient's Visit Information Visit Information Visit Information: NEGRITA CASTAÑEDA is a 68 year old M referred to Physical Therapy by Dr. Robinson Hadley DO with a diagnosis of Left Quad Atrophy. Date of Evaluation: 02/19/24 Physical Therapist: Negin Cai DPT Visit Plan Frequency: 2-3x /Week Duration: 6 Weeks Plan: Focus on Left Quad Strengthening- HEP for Gym Program. HEP Given IE: Standing HR/TR, SLR, TKE, Quad Sets. Subjective Subjective: Patient reports he has spinal surgery December 03- removal of cyst and decompression- he also had surgery in 1975- extreme pain and weakness in the left leg. He was doing well until the beginning of this month and then things went down hill. He is really active- he walks at home- 2 weeks ago his leg gave out and he had a fall. Since then he has had a hard time with hills and endurance. He is unsure if the weakness is stagnant or if he is getting weaker. He was planting plants and he is not in a good place bent over and and getting up/down. He is pain free at this time. He is not doing any sort of strength training he is just walking. The walking he is doing is .9 of a mile and he can do 2 but no more than 2. Prior to surgery- he was exercising 7 miles on a bike- shoulder strengthening exercises and abd/add of the legs- and he has not been to thte gym since Sep. Getting back to the gym is something he is looking to do. He is unable to do stairs recip up but can do them down. He is unable to do uneven ground walking. He does not have N/T in the feet. Since the surgery he has some cramps in his calf- mostly on his left. Prior to surgery he had pain on the left side. No AD since surgery. PMHx/Meds: see ortho note Objective Objective: Posture: forward head, rounded shoulders- can correct with verbal cues but does not maintain Gait: slightly antalgic- decreased stance on the left LE- does not get full extension on the left- decreased abdulaziz Stairs: asc: non recip- can perform recip with bilateral HR but uses significant UE. Descend: recip with poor control and bilateral HR HR/TR: able with UE A- but does have limited ROM with TR SLS: weight shift but only SLS for 1-2 seconds without LOB Observation: mild atrophy of the left quad- does have a visible quad set and no lag with SLR ROM: WNL in all planes Flex: HS: severe, Gastroc: severe Strength: Core: fair minus, Hip: SLR: 4-/5 with discomfort in the quad, Abd: 4/5, IR/ER: 4/5, Extn: 4/5, Knee: Left: Extn: 30 Flexion:29 Right: Extn: 58 Flexion: 36 Ankle: 4+/5 Balance/Special Test Scores Lower Extremity Functional Score: 39 Goals Goal 1:: Patient will be I with HEP and progression Goal Time Frame: 4-6 Weeks Goal 2:: Patient will demo equal extension strength bilateral Goal Time Frame: 4-6 Weeks Goal 3:: Patient will SLR without quad discomfort Goal Time Frame: 4-6 Weeks Goal 4:: Patient will asc/desc 8 stairs recip with one HR Goal Time Frame: 4-6 Weeks Goal 5:: Patient will report 80% improvement Goal Time Frame: 4-6 Weeks Rehabilitation Potential Physical Therapy Diagnosis: Patient presents with hypomobility- he has decreased LE and core strength/stabilization, flex, proprioception, and muscular endurance leading to decreased balance and ability to perform ADL's Rehabilitation Potential: Good Anticipated Interventions Patient/Client Instruction: Educate patient on: Benefits of Fitness Program Therapeutic Exercise to Include: Strength training, Endurance training, Balance training, Coordination, Agility training, Body mechanics, Postural training, Flexibilty training, Gait and locomotor training, Neuromotor development, Dynamic Lumbar Stabilization and Scapular Strength/Stabilization For the Purpose of:: To improve muscle performance and motor function Functional Training to Include: Gait training Functional electric stimulation: Yes TENS: Yes Text: Thank you for the opportunity to evaluate your patient. For Medicare and Medicare HMO plans, please review the plan of care and approve it. It will need to be FAXED BACK to us at [phone] for Medicare purposes. For Medicare only, by signing this I certify the plan of care. Please let me know if there are questions or concerns regarding this plan of care. Physician Signature: Date:
--- NOTE | 2024-03-18 11:45 | HP.PTDCSUM ---
Discharge Summary D/C summary: It has been my pleasure to treat NEGRITA CASTAÑEDA referred by Dr. Robinson Hadley DO, with the diagnosis of Left Quad Atrophy for a total of 11 visit(s). Discharge Date: Please see the following information for a summary of their discharge status. Subjective Subjective: Patient reports that he feels that he is better. He can squat better and walk better. He is having more knee and hip pain. He is scheduling to have a right TSA in August. Overall Improvement % Improvement: 80 Objective Objective/Function: Posture: fair throughout. Gait: no significant deviation noted Stairs: recip with bilateral HR HR/TR: able with UE A SLS: Left 8 seconds Right: 5 seconds ROM: WNL in all planes Flex: HS: mod, Gastroc: mod Strength: Core: fair minus, Hip: Flexion: 4+/5, Abd: 4+/5, IR/ER: 4+/5, Extn: 4+/5, Knee: Left: Extn: 42 Flexion:42 Right: Extn: 62 Flexion: 39 Ankle: 4+/5 Goals Goal 1:: Patient will be I with HEP and progression Goal Progress: Goal Met Goal 2:: Patient will demo equal extension strength bilateral Goal Progress: Progressing Goal 3:: Patient will SLR without quad discomfort Goal Progress: Goal Met Goal 4:: Patient will asc/desc 8 stairs recip with one HR Goal Progress: Progressing Goal 5:: Patient will report 80% improvement Goal Progress: Goal Met Plan Plan: Discharge to HEP- will continue at gym with indep program. D/C Information d/c sentence: If there are questions or concerns regarding this patient's physical therapy, please feel free to call me at [phone]. Thank you for the referral of this patient. Sincerely, Negin Cai, DPT Balance/Gait/Functional tests Balance/Special Test Scores Lower Extremity Functional Score: 62 Improvement % Improvement: 80
== END 2024-03-18 19:00 | disposition home or self-care (01) ==
LOC: PT 11:30
PROVIDERS: PCP Internal Medicine; Referring Provider Orthopaedic Surgery; Visit Provider Orthopaedic Surgery
DX: M62.559 Muscle wasting and atrophy, not elsewhere classified, unspecified thigh (principal)
CPT/HCPCS: 97110; 97162; 97530

== ENCOUNTER → 2024-06-06 | Outpatient (CLI) | payer MEDICARE, OTHER, SELFPAY ==
[2024-06-06 13:02] LABS: Anion Gap 7 (5-15); BUN 15 mg/dL (7-18); BUN/Creat Ratio 18.5 RATIO (10-20); Calcium,Total 9.4 mg/dL (8.5-10.1); Chloride 110 mmol/L (98-107); Creatinine, Serum 0.81 mg/dL (0.70-1.30); EST Glomerular Filtration Rate 100 mL/min (>60); Est Glom Filt Rate - Afr Amer 121 mL/min (>60); Glucose 90 mg/dL (74-106); Potassium 3.8 mmol/L (3.5-5.1); Sodium Level 144 mmol/L (136-145)
== END | disposition home or self-care (01) ==
LOC: BIMLAB 08:24
PROVIDERS: PCP Internal Medicine; Referring Provider Internal Medicine; Visit Provider Internal Medicine
DX: I10 Essential (primary) hypertension (principal)
CPT/HCPCS: 36415; 80048

== ENCOUNTER → 2024-06-14 | Outpatient (CLI) | payer MEDICARE, OTHER, SELFPAY ==
--- NOTE | 2024-06-14 12:41 | CT_ITS ---
EXAM: CT RIGHT UPPER EXTREMITY WITHOUT INTRAVENOUS CONTRAST CLINICAL INDICATION: Primary osteoarthritis, right shoulder TECHNIQUE: Helically acquired images were obtained of the right upper extremity without intravenous contrast. 2-D reformats were performed by the technologist. CTDIvol = ( 26.50 ) mGy, DLP = ( 708.42 ) mGycm This CT exam was performed using one or more of the following dose reduction techniques: automated exposure control, adjustment of the mA and/or kV according to patient size, and/or use of iterative reconstruction technique. COMPARISON: No relevant prior studies available. FINDINGS: BONES/JOINTS: Moderate to severe osteoarthritis of the right acromioclavicular joint and glenohumeral joint. No acute or healing fracture or malalignment. SOFT TISSUES: Unremarkable. No soft tissue swelling or gas. No radiopaque foreign body. No soft tissue hemorrhage or hematoma. No other soft tissue masses or fluid collections. Small calcified pulmonary granulomas of the right upper lobe superior segment and right hilar small calcified lymph nodes are compatible with old granulomatous disease. At least a moderate amount of joint fluid identified with prominent fluid anteriorly centered about/communicating with the intertubercular groove. CT/Extremity Upper without Contra IMPRESSION: Moderate to severe osteoarthritis of the right acromioclavicular joint and glenohumeral joint. No acute osseous abnormalities or malalignment. Electronically Signed: Yves Moore MD at 20:27 EDT ,
[2024-06-14 12:49] LABS: Absolute Lymphocyte Count 1.42 X10^3/uL (0.83-4.51); Absolute Neutrophil Count 4.9 X10^3/uL (2.0-7.7); Basophil# 0.04 X10^3/uL; Basophil% 0.6 % (0-1); Eosinophil# 0.11 X10^3/uL; Eosinophils% 1.5 % (0-5); Hematocrit 48.8 % (40-54); Hemoglobin 15.8 g/dL (13.0-16.5); Lymphocyte # 1.42 X10^3/ul (0.83-4.51); Lymphocyte % 19.6 % (19-41); Mean Corp Hgb Conc 32.4 g/dL (32-36); Mean Corpuscular Hgb 29.8 pg (27.0-32.0); Mean Corpuscular Volume 92.1 fL (80-94); Mean Platelet Vol. 9.9 fl (6.2-12.0); Monocyte# 0.74 X10^3/uL; Monocyte% 10.2 % (0-10); NRBC Flagged by Analyzer 0 % (0-5); Neutrophil # 4.93 X10^3/uL (2.7-7.7); Platelet Count 208 K/mm3 (150-450); RBC Distribution Width CV 12.9 % (11.6-14.6); RBC Distribution Width SD 43.9 fl (35.1-43.9); White Blood Count 7.3 K/mm3 (4.4-11.0)
[2024-06-14 13:34] LABS: Albumin, Serum 3.6 g/dL (3.2-5.0); Anion Gap 4 (5-15); BUN 16 mg/dL (7-18); BUN/Creat Ratio 20.6 RATIO (10-20); Calcium,Total 9.4 mg/dL (8.5-10.1); Chloride 107 mmol/L (98-107); Creatinine, Serum 0.78 mg/dL (0.70-1.30); EST Glomerular Filtration Rate 105 mL/min (>60); Est Glom Filt Rate - Afr Amer 127 mL/min (>60); Glucose 86 mg/dL (74-106); Potassium 3.9 mmol/L (3.5-5.1); Sodium Level 139 mmol/L (136-145)
[2024-06-14 13:37] LABS: Magnesium 2.4 mg/dL (1.6-2.6)
== END | disposition home or self-care (01) ==
LOC: CT 12:26
PROVIDERS: Anesthesiology; PCP Internal Medicine; Referring Provider Specialist; Visit Provider Specialist
DX: Z01.818 Encounter for other preprocedural examination (principal); M19.011 Primary osteoarthritis, right shoulder
CPT/HCPCS: 36415; 73200; 80048; 82040; 83735; 85025; 87081

== ENCOUNTER 2024-07-08 05:10 | Day surgery (SDC) | payer MEDICARE, OTHER, SELFPAY ==
--- NOTE | 2024-07-01 07:45 | PCM.HP.BLA ---
History and Physical History and Physical Patient Name: Dontae Yadav II : 1955From:? MADI RANDALL PA-C DATE OF PRE-OPERATIVE EXAM: 06/28/2024 DATE OF SURGERY:? 07/08/2024 SCHEDULED PROCEDURE:? Right reverse total shoulder arthroplasty HISTORY OF PRESENT ILLNESS: Preoperative history and physical exam was performed on June 28, 2024.? This is a 68-year-old male who is had ongoing pain with his right shoulder.? Patient has had a past history of left reverse total shoulder replacement by Dr. Max Maya on December 13, 2022.? Patient is left-hand dominant.? Patient has continued to have ongoing right shoulder pain.? Pain is increased with any overhead use.? He gets grinding sensation in the shoulder with range of motion and audible noises with the range of motion exercises.? He has tried previous corticosteroid injection which only gave him 1-2 months of relief.? Patient denies past history of surgery on the left shoulder.? Patient has had a previous MRI of the left shoulder in 2020 which did reveal full thickness tear of the supraspinatus tendon.? Patient has tried home exercises for the right shoulder at home without relief in symptoms.? He denies any numbness and tingling.? After failing conservative measures and discussing all treatment options with Dr. Max Maya, the patient does wish to proceed with a right reverse total shoulder arthroplasty.? Patient has obtain surgical clearance from the primary care provider Dr. Perry.? Lisa valderrama has medical history pertinent for hypertension, testosterone deficiency, skin cancer, and seasonal allergies.? He denies any recent chest pain, short of breath, fevers chills or recent infections.? No past history of DVT or pulmonary embolism. REVIEW OF SYSTEMS: Review Of Systems: Constitutional: Denies change in appetite, fever and weight change. Cardiovasular: Denies chest pain, heart murmur and irregular heartbeat. Respiratory: Reports cough, but denies pneumonia, shortness of breath, tuberculosis and wheezing. Genitourinary: Denies urinary symptoms. Musculoskeletal: Reports pain and weakness, but denies leg swelling and trouble walking. Skin: Denies Raynaud's, history of shingles and tattoo. Neurological: Denies ambulatory dysfunction, dizziness, numbness/tingling and tremor. Psychiatric: Denies anxiety, insomnia and stress. Hematologic/Lymphatic: Reports bleeding/bruising tendency and past transfusion, but denies anemia. Reviewed and updated. PAST MEDICAL HISTORY: Advance Care Plan: Other Directive, POA Effective Date: 10/05/2022 Other Directive, LIVING WILL Effective Date: 10/05/2022 Past Medical History: Medical Problems: Arthritis - (07/2022) Asthma - (08/2022) High Blood Pressure - (08/2022) Covid-19 Vaccine, Hypercholesterolemia, testosterone deficiency Cancer - melanoma seasonal allergies, previous blood transfusion Accidents: None Surgical Hx: Knee Replacement Lt - (06/2016) Herniated Disc - (1975) L4 AND L5 Left Reverse Total Shoulder Replacement W/ Right Sholder Injection - (12/13/2022) DR. MAYA @ [facility] Lumbar Epidural - [facility], THREE TOTAL LT Wrist Carpectomy - (05/04/2023) [facility] lumbar epidural - (2023) Dr. carrera Lumbar Surgery - (12/04/2023) Dr. Hadley - Cyst Removal - discectomy Anesthesia Complications: Anesthesia Complications - cold, and difficultly wakening Assistive Devices: Glasses Reviewed and updated. SOCIAL HISTORY: Social History: Marital: .Occupation: Retired.Work Status: Retired.Hand Dominance: Left-handed. Personal Habits:? Tobacco Use: Patient has never smoked.Cigarette Use: Never Smoked Cigarettes.Smokeless Tobacco: Never Used Smokeless Tobacco.E-Cigarette Use: Never used.Alcohol: Occasionally.Drug Use: Denies Use.Enjoy Exercising: Exercises 1-3 X/Week. Reviewed and updated. VITALS: Ht: 73 Wt: 205lb Wt k.988 BMI: 27.0 BP: 116/72 Pulse: 74 Resp: 17 T: 97.4 T: 36.3C Pain Level: 3 O2SatR: 96 ALLERGIES: No Known Drug Allergy MEDICATIONS: Oxycodone HCL 5 mg 1-2 tablets by mouth every 4 hours as needed, Ondansetron HCL 4 mg 1 tablet by mouth every 8 hours as needed for nausea, Famotidine 20 mg 1 tablet by mouth once daily, Meloxicam 7.5 mg 1 tablet by mouth twice a day, Breo Ellipta 100-25 mcg/Act as directed, Testosterone 12.5 MG/Act (1%) 1 pump daily, Atorvastatin Calcium 20 mg 1po qday, Hydrochlorothiazide 12.5 mg 1po qday, Lisinopril 10 mg 1po qday, Proair Digihaler 108 (90 Base) mcg/Act as needed, Diltiazem HCL ER 180 mg daily, Ventolin HFA 108 (90 Base) mcg/Act as needed, Vitamin D3 250 mcg (12897 Ut) 1 a day, Tylenol 325 mg as needed PRE-OP EXAM: General appearance:NORMAL? Other: Eyes: Conjunctivae and lids: NORMAL? Pupils: ERR Ears, Nose, Mouth, and Throat: NORMAL? Other: Inspection of lips, teeth and gums: NORMAL?? Other: Neck: Examination of neck: no masses noted. Respiratory: Assessment of respiratory effort: NORMAL?? Other: ? Auscultation of lungs: clear to auscultation no wheezes, rhonchi or rales. Cardiovascular:? Auscultation of heart: regular rate and rhythm, no murmurs, gallops or rubs. PHYSICAL EXAMINATION: On exam of the right shoulder there is no erythema or signs of infection.? He has tenderness to palpation of the anterior and lateral shoulder.? Range of motion: Active forward flexion 150, external rotation 25, internal rotation approximately L5.? He has crepitus with range of motion.? 3+/5 supraspinatus strength on the right.? Sensation intact to light touch in axillary, radial, median, ulnar nerve distribution. IMAGING STUDIES: Previous x-rays of the right shoulder reveal severe glenohumeral osteoarthritis with stage IV bone on bone consistent with osteophyte formation, subchondral sclerosis, posterior glenoid erosion with posterior subluxation of the joint. IMPRESSION: 1.? Severe right shoulder glenohumeral osteoarthritis 2.? Presence of previous left reverse total shoulder arthroplasty: 2022 3.? Hypertension 4.? Hypercholesterolemia 5.? Testosterone deficiency 6.? Seasonal allergies 7.? History of skin cancer 8.? Overweight with BMI 27.0 PLAN: Dr. Max Maya did discuss and review with the patient all treatment options including surgical versus nonsurgical options.? Patient does wish to proceed with the above-stated procedure.? Potential risks, benefits, and complications of the procedure were discussed in detail including but not limited to , infection, nerve and blood vessel damage, persistent pain, numbness, tingling, paresthesias, blood clot, pulmonary embolism, and requirement for possible further surgery.? The patient expressed full understanding and has no further questions for the doctor.? Patient does agree to proceed with the above-stated procedure and has signed the surgery consent form. POST-OP MEDICATION PLAN: Pain Medications: Patient was given the following medications at the preoperative visit: Meloxicam, famotidine, Zofran, oxycodone.? 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 Patient will continue to follow our nutrition protocol. DVT Prophylaxis:? Aspirin 81 mg twice daily for 2 weeks postoperatively.? Denies past history of DVT or pulmonary embolism.? Patient is currently using testosterone and we discussed the risk of DVT.? Patient had previous surgery in which he used aspirin 81 mg for 2 weeks postoperatively.? He has been instructed to use the NOAH hose for the 2 weeks postoperatively. This dictation was created using voice recognition software. Phonetic and/or grammatical errors may exist. ___? I have re-examined the patient.? There are no clinical changes since date of exam. ___? See progress notes for changes. ___? Dictated on admission Date: ? Time: Signature:
[2024-07-08] VITALS (16 sets, daily range): BP systolic 129–161; BP diastolic 62–117; PULSE 61–97; RESP 12–18; TEMP 36.3–36.6; O2SAT 88–97; BMI 26.6
[2024-07-08] MEDS: Lactated Ringers 1,000 ML 999 ML IV ×2 (06:05→10:12)
[2024-07-08] MEDS: Magnesium 1 GM over 15 mins IV (06:10)
[2024-07-08] MEDS: Vancomycin HCl 1,500 MG in 0.9% Normal Saline (500mL Bag) 500 ML 250 MG IV (06:30)
--- NOTE | 2024-07-08 06:36 | PCM.PRE.AN2 ---
ASA Classification* ASA Classification ASA Classification: 2 Assessment & Plan Anesthesia* Anesthesia Assessment Anesthesia Assessment: Discussed sedation and/or anesthesia options, risks, benefits, and alternatives with patient/parents/legal guardian/POA. Questions invited. The patient/parents/legal guardian/POA seems to understand and agrees to proceed with anesthesia plan. Reviewed the physical assessment, medical history, allergy history and patient home medications list prior to surgery/procedure/anesthetic and documented any changes. Performed airway and anesthesia risk assessments. Anesthesia Type Anesthesia Type: General and Block Anesthesia Focused Assessment* Airway Assessment Mouth opens: >3 cm Mallampati Score: II Focused Labs Anesthesia Preop lab: CBC WBC 7.3 K/mm3 (4.4-11.0) 06/14/24 12:35 RBC 5.30 M/mm3 (4.6-6.2) 06/14/24 12:35 Hgb 15.8 g/dL (13.0-16.5) 06/14/24 12:35 Hct 48.8 % (40-54) 06/14/24 12:35 Plt Count 208 K/mm3 (150-450) 06/14/24 12:35 CHEMISTRY Potassium 3.9 mmol/L (3.5-5.1) 06/14/24 12:35 Sodium 139 mmol/L (136-145) 06/14/24 12:35 Magnesium 2.4 mg/dL (1.6-2.6) 06/14/24 12:35 BUN 16 mg/dL (7-18) 06/14/24 12:35 Creatinine 0.78 mg/dL (0.70-1.30) 06/14/24 12:35 Glucose 86 mg/dL (74-106) 06/14/24 12:35 POC Glucose 65 mg/dL (74-106) L 12/04/23 05:49 COAG PT 13.5 SECONDS (11.7-14.9) 11/21/23 09:47 Pre-Assessment Diagnosis/Proposed Procedure Planned Operative Procedure(s): (R) Total Shoulder Replacement, Reverse Anesthesia History Anesthesia History - bacteriology research assistant: Anesthesia History - bacteriology research assistant Hx Hospitalization No 06/10/24 10:09 Any Problems With Anesthesia No 06/10/24 10:09 Cholinesterase deficiency No 06/10/24 10:09 You/Your Family Experience No 06/10/24 10:09 fever (hyperthermia) with Relationship Recent Exposure to Contagious No 12/04/23 06:06 Disease Does patient have nerve No 06/10/24 10:09 stimulator Patient instructed to have device shut off --Does patient have Pacemaker or ICD? When Was Last Pacemaker Check QUESTION #4 FULL TEXT: You/Your Family Experience fever (hyperthermia) with Anesthesia Last Oral Intake Last Oral intake: Last Oral Intake NPO since Meds taken in AM with sips of water? Meds patient instructed to take am of surgery PONV PONV - bacteriology research assistant: PONV - bacteriology research assistant Female No 06/10/24 10:09 HX of Motion Sickness No 06/10/24 10:09 HX of N/V After Surgery No 06/10/24 10:09 Non-Smoker Yes 06/10/24 10:09 Duration of Surgery greater Yes 06/10/24 10:09 than 60 minutes Number of Risk Factors 2 06/10/24 10:09 PONV Score Moderate Risk 06/10/24 10:09 Height & Weight Height & Weight: Anesthesia: Height & Weight Height 6 ft 1 in 07/05/24 08:15 Weight: 92.986 kg 07/05/24 08:15 Respiratory Assessment Respiratory Assessment - bacteriology research assistant: Respiratory Tract Infection Hx - bacteriology research assistant Hx Respiratory Tract Infection No 06/10/24 10:09 STOP Sleep Apnea STOP Sleep Apnea - bacteriology research assistant: STOP Sleep Apnea - bacteriology research assistant Hx Hypertension Yes 06/10/24 10:09 Hx Sleep Apnea No 06/10/24 10:09 CPAP BIPAP Do you snore loudly (louder No 06/10/24 10:09 than talking or can be heard Do you often feel tired/ No 06/10/24 10:09 fatigued/ sleepy during daytime? Has anyone observed you stop No 06/10/24 10:09 breathing during sleep? STOP Results Negative 06/10/24 10:09 QUESTION #5 FULL TEXT : Do you snore loudly (louder than talking or can be heard through closed doors)? Tobacco Use History Tobacco Use History - bacteriology research assistant: Tobacco Use History - bacteriology research assistant Tobacco Use Smoking Status Never smoker 06/10/24 10:09 Hx Tobacco Use No 06/10/24 10:09 Years Smoking Packs Smoked per Day Smoking Cessation Date was within the last 15 years Hx Smoking Cessation Date Hx Smoking Cessation Counseling Hematologic Medial History Hematologic Hx - bacteriology research assistant: Hematologic Medical Hx - track manager Hx of Blood Transfusion Yes 06/10/24 10:09 Hx of Transfusion in last 3 No 06/10/24 10:09 Months Date of Last Transfusion (if within last 3 months) Ever experience any problems No 06/10/24 10:09 with transfusion(s)? Specify any problems Hx of Preganancy in last 3 N/A 06/10/24 10:09 Months Nurse Filling Out Transfusion EHLEEDS 06/10/24 10:09 & Questions: Date: 06/10/24 06/10/24 10:09 Time: 10:13 06/10/24 10:09 Patient unable to answer at this time (ie. confused, unrespo /Reproduction History /Reproductive History - bacteriology research assistant: /Reproductive Hx- bacteriology research assistant Hx Now Gestational Age (in weeks): EDC: Hx Hx Para Hx Section SAB No 11/14/23 10:55 Active Medications Active Medications: Current Medications Generic Name Dose Route Start Last Admin Trade Name Freq PRN Reason Stop Dose Admin Acetaminophen 1,000 mg 07/08/24 07:30 Acetaminophen 500 Mg Tablet PO 07/08/24 07:31 X1 ONE Celecoxib 400 mg 07/08/24 07:30 Celecoxib 200 Mg Capsule PO 07/08/24 07:31 X1 ONE Dexamethasone Sodium Phosphate 10 mg 07/08/24 07:30 Dexamethasone 10 Mg/Ml Vial IV 07/08/24 07:31 X1 ONE Gabapentin 600 mg 07/08/24 07:30 Gabapentin 600 Mg Tablet PO 07/08/24 07:31 X1 ONE Lactated Ringer's 1,000 mls @ 999 mls/hr 07/08/24 07:30 IV 07/08/24 08:30 .Q1H1M JONATHAN Tranexamic Acid 1,000 mg/ 110 mls @ 660 mls/hr 07/08/24 07:30 Sodium Chloride IV 07/08/24 07:39 X1 ONE Tranexamic Acid 1,000 mg/ 110 mls @ 660 mls/hr 07/08/24 08:30 Sodium Chloride IV 07/08/24 08:39 X1 ONE Lactated Ringer's 1,000 mls @ 999 mls/hr 07/08/24 08:30 IV 07/08/24 09:30 .Q1H1M JONATHAN Lactated Ringer's 1,000 mls @ 125 mls/hr 07/08/24 09:30 IV 07/08/24 17:29 .Q8H JONATHAN Cefazolin Sodium 2 gm/ N/A 20 mls @ 400 mls/hr 07/08/24 07:30 IV 07/08/24 07:32 PREOP ONE Vancomycin HCl 1,500 mg/ 530 mls @ 250 mls/hr 07/08/24 07:30 Sodium Chloride IV 07/08/24 09:37 X1 ONE Magnesium Sulfate 1 gm/ 102 mls @ 408 mls/hr 07/08/24 07:30 Dextrose IV 07/08/24 07:44 X1 ONE Insulin Human Lispro 1 - 6 unit 07/08/24 07:30 Insulin Lispro 100 Unit/Ml Insuln.Pen SC 07/08/24 13:30 Q4H PRN PRN BG>/= 180, SEE PROTOCOL Protocol PFS Medical History Preoperative evaluation to rule out surgical contraindication Non-smoker History of edema Leg cramps Hyperlipidemia Lumbar radiculopathy Wears glasses Alcohol use Arthritis Easy bruising Back pain History of pain when walking History of stress test Blood glucose elevated Health care maintenance Testosterone deficiency Skin cancer Osteoarthritis Hormone deficiency Hypertension History of back problems Asthma Seasonal allergies Home Medications ?Medication ?Instructions ?Recorded ?Last Taken ?Type cholecalciferol (vitamin D3) 25 25 mcg PO DAILY 02/16/23 12/03/23 History mcg (1,000 unit) capsule albuterol sulfate 90 mcg/actuation 2 puff inhalation Q6H PRN 10/10/23 12/04/23 03:30 Rx aerosol inhaler shortness of breath or wheezing #8.5 grams naproxen sodium 220 mg capsule 440 mg PO DAILY PRN pain 11/14/23 11/26/23 History (Aleve) testosterone 1 % (50 mg/5 gram) 1 packet transdermal .QOD 11/14/23 11/26/23 History transdermal gel packet fluticasone furoate 100 1 inh inhalation DAILY 3 months 01/25/24 Unknown Rx mcg-vilanterol 25 mcg/dose #60 ea inhalation powder (Breo Ellipta) atorvastatin 20 mg tablet 20 mg PO DAILY #90 tabs 03/01/24 Unknown Rx diltiazem HCl 180 mg 180 mg PO DAILY #90 caps 05/31/24 07/07/24 19:00 Rx capsule,extended release 24 hr lisinopril 10 mg tablet 10 mg PO DAILY #90 tabs 05/31/24 Unknown Rx hydrochlorothiazide 12.5 mg tablet 12.5 mg PO DAILY #90 tabs 06/19/24 Unknown Rx Allergy/AdvReac Type Severity Reaction Status Date / Time No Known Allergies Allergy Verified 07/08/24 06:35 Family History Other Alcoholism Arthritis Colon cancer Heart disease Hypertension Respiratory disease Surgical History Status post laminectomy History of surgery on left wrist Hx of shoulder surgery Hx of thumb surgery History of knee replacement History of back surgery Social History Smoking Status: Never smoker alcohol intake: current details: 2-4 a week substance use type: does not use what type of physical activity do you participate in: walking frequency: 3-4 times per week Review of Systems (Anesthesia) ROS Narrative System reviewed and no additional complaints, except as documented.
[2024-07-08] MEDS: Acetaminophen 500 MG Tablet 1000 MG PO ×2 (06:41→13:34)
[2024-07-08] MEDS: Celecoxib 200 MG Capsule 400 MG PO (06:41)
[2024-07-08] MEDS: Gabapentin 600 MG Tablet PO (06:42)
[2024-07-08 07:04] LABS: Bedside Glucose 104 mg/dL (74-106)
[2024-07-08] MEDS: Cefazolin 2 GM in Syringe IV (07:28)
--- NOTE | 2024-07-08 07:30 | SHO_PTH ---
PATIENT: NEGRITA CASTAÑEDA LOC: [facility] [place] [place] U#:[id number] AGE/SX: 68/M ROOM: RE07/08/[address]: Dr. Max Maya MD : 1955 BED: DIS: 07/08/2024 SPEC #: [id number] RECD: 07/08/24 14:23 STATUS: PRINCE MALLORY #: [id number] GEORGI: 07/08/24 07:[address]: Max Maya DEPT: SURGICAL PATHOLOGY RECD BY: Marlen Colmenares ENTERED: 07/09/24 10:07 SP TYPE: HUMERUS OTHR DR: Dr. Mercy Perry MD Tissues: Humerus, NOS Procedures: Decalcification bone/plaque Surgery Specimen Level IV HEADER OPERATION: Total shoulder replacement, reverse PRE-OP DIAGNOSIS: Severe right shoulder glenohumeral osteoarthritis, presence of previous left reverse total shoulder arthroplasty, hypertension, hypercholesterolemia, testosterone deficiency, seasonal allergies, history of skin cancer, overweight with BMI 27.0 TISSUE SUBMITTED: Right shoulder bone and tissue MICROSCOPIC DIAGNOSIS Bone and tissue of right shoulder, total shoulder resection: Severe degenerative joint disease. AM: 07/12/2024 MICROSCOPIC DESCRIPTION Slides are reviewed. GROSS DESCRIPTION Received is one container labeled with the patient's name and designated bone and soft tissue. The specimen consists of a humeral head measuring 5.5 x 6.0 x 3.0 cm. The articular surface shows areas of erosion, eburnation and osteophyte formation. Also present in the container are detached pieces of bone measuring 2.0 x 0.7 x 0.6cm. No soft tissue is identified. Plumbing Service Technician sections are submitted in one cassette after decalcification. / SJ: 07/09/2024 TC:5 [facility]: [id number], [id number]
[2024-07-08] MEDS: dexAMETHasone 10 MG/ML Vial IV (07:38)
[2024-07-08] MEDS: TXA 1000mg in NS100 100ml (IVPB at Incision) 660 MG IV (07:40)
[2024-07-08] MEDS: TXA 1000mg in NS100 100ml (IVPB at Closure) 660 MG IV (08:43)
--- NOTE | 2024-07-08 08:44 | PCM.OPRPT ---
Operative Report (Standard) Operative Information Surgery/Procedure Performed: Right reverse total replacement Surgeon: Max Maya Date of Procedure: 07/08/24 Procedure Start Time: 08:04 Procedure Stop Time: 09:08 Pre-Operative Diagnosis: Right shoulder glenohumeral osteoarthritis, severe glenoid wear Post-Operative Diagnosis: Right shoulder glenohumeral osteoarthritis, severe glenoid wear Select all DRAINS/GRAFTS/IMPLANTS that apply: Prosthetic device Prosthetic device details: 1. Tornier perform reverse full augment glenoid baseplate 29 mm 2. Tornier perform reverse standard glenosphere, 39 mm cobalt-chromium 3. Tornier perform humeral stem 39+0 4. Tornier perform humeral system short stem size 3+ Type of Anesthesia: General Special Medications: 2 g Ancef, 1 g TXA at incision, 1 g TXA closure, 10 mg Decadron, joint cocktail (5 mg Duramorph, 30 mL of 0.5% Ropivicaine, 1000 units of epinephrine, 30 mg of Toradol) additional vancomycin was given Estimated Blood Loss: 150 mL Fluids Replaced: 1200 mL crystalloid Specimen collected: Yes Description of specimen(s) removed: HUMERAL HEAD Description of surgery: Brief history/Operative indications: 68 yo m with history of R shoulder pain and cuff tear arthropathy. Patient failed conservative measures as mentioned in the H&P. After discussion of risk and benefits of reverse total shoulder replacement including but not limited to blood loss, DVTs, PEs, nerve vessel damage, infection, general risk of anesthesia including loss of life, instability and stiffness patient demonstrating understanding wish to proceed was able to sign informed consent. Medical clearance was obtained. Procedure: On the date of the procedure, patient's R upper extremity was marked in the preoperative area. Patient was taken back to the operating room where they were placed on the table in the supine position. Anesthesia assumed control of the C-spine and airway, then administered anesthetic. All bony prominences were identified well-padded, the head was secured and the patient was placed in the beachchair position at about 35? inclination. Anesthesia remained in control of the C-spine airway throughout the remainder of the procedure. Patient was then appropriately fastened to the table and the R upper extremity was prepped in a sterile fashion. The surgeons then scrubbed. Upon reentering the room, the R upper extremity was draped in a sterile fashion and the incision was marked out. Timeout was called, everyone agreed upon the side, the site, the procedure to be performed, patient identity and antibiotics given. Incision was taken down through skin and subcutaneous tissue, fat down to fascia. The stripe of the deltopectoral interval and cephalic vein were identified and blunt dissection was used to retract the deltoid. The cephalic vein was retracted laterally. Clavipectoral fascia was then incised and a cobra retractor was placed in the wound. The proximal one third of the pectoralis major insertion was released. Pectoralis tendon insertion was used to tenodesed the biceps tendon which was identified in the bicipital groove. Tenodesis was done with #1 Vicryl. Proximally we followed the biceps tendon after transecting it into the rotator interval. The rotator interval was split and the arm was externally rotated. The split was 1 cm medial to the bicipital groove. Subscapularis tendon was released. We released down the anterior portion of the humeral head and a kerns elevator was used to release the inferior portion of the humeral head. The arm was externally rotated and the shoulder was dislocated. The humeral head was then cut at its natural retroversion. Once his humeral head cut was made humerus was retracted out of the way and the glenoid was exposed. After exposing the glenoid, the labrum and the remaining proximal biceps were debrided. At this time we are able to view the entire outer edge of the glenoid. A central pin was placed we sequentially reamed over this central pin to 29mm. Once this was completed the central screw was measured and found to be 35 mm. The glenoid baseplate was screwed into place. Wound was closely irrigated out with normal saline we then drilled sequentially for 2 screws. Screws were placed superiorly and inferiorly and tightened down the screws. Once the screws were appropriately tightened into place the glenoid baseplate was compressed against the exposed subchondral bone. A 39mm glenosphere was impacted into place engaging the Persaud taper. Attention was then turned towards the humerus. The humerus was again externally rotated exposing the proximal portion of the humerus. Central canal finder was then used to open up the canal. We reamed to a 3 reamer. We then broached to a 3+ stem. We trialed the 0mm liner. We obtained an adequate reduction at this time with a nice stable shoulder. Good internal rotation to the gluteus, forward elevation to 140?, external rotation to 20?. Final components were then assembled on the back table, trials were removed and the wound was copiously irrigated with normal saline after dislocating the shoulder. Once the final components were assembled they were impacted into place. Shoulder was then reduced and found to be stable with good range of motion. Subscapularis tendon repaired using #2 FiberWire. The wound was with chlorhexidine solution then copiously irrigated out with a 1 L normal saline lavage. The deltopectoral fascia was then closed using #1 Vicryl skin was closed using 2-0 Vicryl interrupted sutures and final skin closure was done with 3-0 Monocryl. Steri-Strips are placed for final skin closure. Sterile dressing was placed patient was then placed in a sling and awakened by anesthesia. Patient was then transferred to the PACU for recovery. Postoperative plan: Patient will be admitted to the hospital overnight. They will get physical therapy starting in 2 weeks with normal postoperative regimen. Patient will be placed on aspirin 81 mg p.o. twice daily for DVT prophylaxis. The first postoperative appointment will be in 2 weeks for wound check and initiation of phase 1 physical therapy. During the course of the procedure the physician technical support assistant played a vital role, there was not an adequately skilled second set of hands available provided by the institution. His intimate knowledge of my steps in the procedure aided in safe and expedient completion of the procedure. The PA played a vital rolls in positioning particularly in obtaining the appropriate beach chair position and securing the patient's body and head to the table. The PA was also vital in the retraction of soft tissues during the exposure and especially the glenoid work as this is a vital part of the procedure to prevent neurovascular damage. the PA was also vital and protecting soft tissues during times of bony cuts and reaming. He also played a vital role in closure with my direct supervision. The PA was also important during reduction and dislocation of the joint and trials intraoperatively. Surgical Findings: Stable shoulder. Repaired subscapularis Conveyor Technician contracting engineer: Yes Health Safety And Environment Manager: David Bradley Tasks completed by title i instructional assistant: Other (See operative report for description) Additional technical support assistant?: No Complications Complications: No Admit VTE Documentation VTE Present on Admission: No VTE Mechan Device Prophylaxis: SCD's and Knee High NOAH Hose VTE Pharm Prophylaxis ordered?: Yes
--- NOTE | 2024-07-08 09:33 | PCM.POST.ANE ---
Anesthesia: Postop Eval I Current Vital Signs Temperature: 97.8 F Pulse Rate: 70 Blood Pressure: 146/77 Respiratory Rate: 18 Pulse Ox: 95 Oxygen Delivery Method: Room Air Assessment Airway patent: Yes Spontaneous unlabored respirations: Yes Mental status: Awake and Calm nausea: No Vomiting: No Anesthesia Complication: No Fluid Hydration Crystalloid volume administer (ml): 800 Total IV fluid infused: 800 Progress Note Anesthesia document: Postop Eval 1 completed: Yes
[2024-07-08] MEDS: Ketorolac 30 MG/ML Syringe IV (12:07)
[2024-07-08] MEDS: Cefazolin 1 GM/50 ML BAG IV (13:34)
[2024-07-08] MEDS: Lactated Ringers 1,000 ML 125 ML IV (14:04)
--- NOTE | 2024-07-08 14:21 | POSTOPAN2_ITS ---
Anesthesia Postop Eval I Sum Postop Eval Completion status Anesthesia document: Postop Eval 1 completed: Yes Anesthesia Postop Eval I Summary Anesthesia Postop Eval I Summary: Anesthesia Postop Eval I: Assessment Summary Airway patent Yes 07/08/24 09:34 [email or web address] Spontaneous unlabored Yes 07/08/24 09:34 [email or web address] respirations Mental status Awake,Calm 07/08/24 09:34 [email or web address] nausea No 07/08/24 09:34 [email or web address] Vomiting No 07/08/24 09:34 [email or web address] Anesthesia Postop Eval I: Fluid Summary Crystalloid volume administer 800 07/08/24 09:34 [email or web address] (ml) Colloids volume administered ( ml) Blood Product volume administered (ml) Total IV fluid infused 800 07/08/24 09:34 [email or web address] Anesthesia Postop Eval I: Summary Notes Anesthesia Complication No 07/08/24 09:34 [email or web address].OT Anesthesia Complication Comment: Post-operative progress note Anesthesia: Postop Eval II Evaluation Mental status: Awake and Calm Pain Level: 4 nausea: No Vomiting: No Complications Anesthesia Complication: No
--- NOTE | 2024-07-08 14:21 | PCM.POSTANE2 ---
Anesthesia Postop Eval I Sum Postop Eval Completion status Anesthesia document: Postop Eval 1 completed: Yes Anesthesia Postop Eval I Summary Anesthesia Postop Eval I Summary: Anesthesia Postop Eval I: Assessment Summary Airway patent Yes 07/08/24 09:34 [email or web address] Spontaneous unlabored Yes 07/08/24 09:34 [email or web address].OT respirations Mental status Awake,Calm 07/08/24 09:34 [email or web address] nausea No 07/08/24 09:34 [email or web address] [email or web address].MDOT Vomiting No 07/08/24 09:34 [email or web address] Anesthesia Postop Eval I: Fluid Summary Crystalloid volume administer 800 07/08/24 09:34 [email or web address].MDOT (ml) Colloids volume administered ( ml) Blood Product volume administered (ml) Total IV fluid infused 800 07/08/24 09:34 [email or web address].OT Anesthesia Postop Eval I: Summary Notes Anesthesia Complication No 07/08/24 09:34 [email or web address] [email or web address].OT Anesthesia Complication Comment: Post-operative progress note Anesthesia: Postop Eval II Evaluation Mental status: Awake and Calm Pain Level: 4 nausea: No Vomiting: No Complications Anesthesia Complication: No
--- NOTE | 2024-07-08 14:45 | SUR.PHASEII ---
1445 WHEN GOING TO ROOM WITH JOMAR, O.T., TO WORK WITH PATIENT, THE PATIENT WAS DIFFICULT TO AROUSE TO VERBAL OR TACTILE STIMULATION, REQUIRED VIGOROUS STERNAL RUB TO AWAKEN PATIENT. ENCOURAGED TO USE INCENTIVE SPIROMETRY. PER JOMAR, O.T. PATIENT VERY UNSTEADY, C/O DIZZINESS, WAS UNABLE TO SAFELY AMBULATE WITH JOMAR USING GAIT BELT. RETURNED PATIENT TO BED. 1515 AWAKENED PATIENT TO CHECK VITAL SIGNS AND ALERTNESS, DID AWAKEN WITH TACTILE & VERBAL STIMULATION. SPO2 90-92% ON ROOM AIR, DENIES FEELING SHORT OF BREATH, JUST REPORTS VERY SLEEPY. SEE VITAL SIGNS. PATIENT IS 6 HOURS POST-OP. PAGED DR GARNETT TO UPDATE WHO RETURNED PAGE AT [phone], ORDERS TO REEVALUATE AT [id number] AND UPDATE .
--- NOTE | 2024-07-08 17:55 | SUR.PHASEII ---
PATIENT HAS AMBULATED IN HALLWAY SEVERAL ROUNDS WITH RN, GAIT MUCH MORE STEADY, DENIES DIZZINESS, VOIDED SMALL/ADEQUATE AMOUNT, ATE CUP OF SOUP AND PUDDING. REPORTS FEELING MUCH IMPROVED. VSS. HAVE MONITORED SPO2 OVER LAST 1.5 HOURS AND WNL, DENIES SOB. BOTH PATIENT AND VERBALIZE DESIRE FOR AND COMFORT WITH D/C HOME. UPDATED DR GARNETT WHO AGREES WITH PLANNED DISCHARGE.
== END 2024-07-08 18:14 | disposition home or self-care (01) ==
LOC: SDC 05:10 → AC 05:11
PROVIDERS: PCP Internal Medicine; Referring Provider Specialist; Visit Provider Specialist
PROC: (CPT 23472; principal; 2024-07-08 07:00)
DX: M19.011 Primary osteoarthritis, right shoulder (principal); Z96.611 Presence of right artificial shoulder joint; I10 Essential (primary) hypertension; E78.00 Pure hypercholesterolemia, unspecified; J30.2 Other seasonal allergic rhinitis; E66.3 Overweight; Z68.27 Body mass index [BMI] 27.0-27.9, adult; E34.9 Endocrine disorder, unspecified; Z85.828 Personal history of other malignant neoplasm of skin
CPT/HCPCS: 23472; 01638; 82962; 88305; 88311; 93005; 97166; C1713; C1776; J7040; J7120; A4216; J2405; J3475

== ENCOUNTER → 2024-08-09 | Outpatient (CLI) | payer MEDICARE, OTHER, SELFPAY ==
--- NOTE | 2024-08-09 13:50 | VDLE_ITS ---
Reason For Study: BLE Swelling RIGHT LEFT GSV is normal. GSV is normal. CFV is compressible, spontaneous, phasic, CFV is compressible, spontaneous, phasic, competent and demonstrates normal competent, and demonstrates normal augmentation. augmentation. FV is compressible, spontaneous, phasic, FV is compressible, spontaneous, phasic, competent and demonstrates normal competent and demonstrates normal augmentation. augmentation. POP V is compressible, spontaneous, phasic, POP V is compressible, spontaneous, phasic, competent and demonstrates normal competent and demonstrates normal augmentation. augmentation. T/P Trunk is compressible. T/P Trunk is compressible. PTV is compressible. PTV is compressible. RT PerV is compressible. LT PerV is compressible. Procedure This is a venous duplex using B-mode, color flow and spectral Doppler. Exam performed in department. The exam was diagnostic. A preliminary report was called and/or faxed to Wade GALLEGO / Felix Maradiaga. VL/Venous Duplex US - Cecilio Extrem Interpretation Summary Deep veins of the lower extremities are bilaterally patent and compressible seg mentally. There is no evidence of deep vein thrombosis on either side. Valvular competence appears in tact within the proximal deep venous systems bilaterally. The great saphenous veins appear bila terally patent and compressible segmentally. Ordering Physician: Wade Gracia Referring Physician: Mercy Perry Performed By: Cristobal Crenshaw RVT
[2024-08-09 15:15] LABS: Absolute Lymphocyte Count 1.39 X10^3/uL (0.83-4.51); Absolute Neutrophil Count 5.2 X10^3/uL (2.0-7.7); Basophil# 0.03 X10^3/uL; Basophil% 0.4 % (0-1); Eosinophil# 0.09 X10^3/uL; Eosinophils% 1.2 % (0-5); Hematocrit 47.9 % (40-54); Lymphocyte # 1.39 X10^3/ul (0.83-4.51); Lymphocyte % 18.7 % (19-41); Mean Corp Hgb Conc 31.3 g/dL (32-36); Mean Corpuscular Hgb 28.2 pg (27.0-32.0); Mean Corpuscular Volume 90.2 fL (80-94); Mean Platelet Vol. 10.5 fl (6.2-12.0); Monocyte# 0.74 X10^3/uL; Monocyte% 9.9 % (0-10); NRBC Flagged by Analyzer 0 % (0-5); Neutrophil # 5.18 X10^3/uL (2.7-7.7); Neutrophil % 69.5 % (47-70); Platelet Count 266 K/mm3 (150-450); RBC Distribution Width CV 13.1 % (11.6-14.6); Red Blood Count 5.31 M/mm3 (4.6-6.2); White Blood Count 7.5 K/mm3 (4.4-11.0)
[2024-08-09 15:33] LABS: AST(SGOT) 22 U/L (15-37); Alanine Aminotransfer ALT/SGPT 29 U/L (16-61); Albumin, Serum 3.6 g/dL (3.2-5.0); Alkaline Phosphatase 41 U/L (45-117); Anion Gap 4 (5-15); BUN 17 mg/dL (7-18); BUN/Creat Ratio 23.7 RATIO (10-20); Calcium,Total 9.5 mg/dL (8.5-10.1); Chloride 106 mmol/L (98-107); Creatinine, Serum 0.72 mg/dL (0.70-1.30); EST Glomerular Filtration Rate 115 mL/min (>60); Est Glom Filt Rate - Afr Amer 139 mL/min (>60); Globulin 3.6 g/dL (2.2-4.2); Glucose 87 mg/dL (74-106); Protein, Total 7.2 g/dL (6.4-8.2); Sodium Level 139 mmol/L (136-145)
== END | disposition home or self-care (01) ==
PROVIDERS: PCP Internal Medicine; Referring Provider Physician Assistant; Visit Provider Physician Assistant
DX: R60.0 Localized edema (principal); Z98.890 Other specified postprocedural states; M79.661 Pain in right lower leg
CPT/HCPCS: 36415; 80053; 85025; 93970

== ENCOUNTER → 2024-08-23 | Outpatient (CLI) | payer MEDICARE, OTHER, SELFPAY ==
[2024-08-23 13:17] LABS: ALB/GLOB Ratio 1.2 RATIO (0.9-2.4); AST(SGOT) 24 U/L (15-37); Alanine Aminotransfer ALT/SGPT 24 U/L (16-61); Albumin, Serum 3.7 g/dL (3.2-5.0); Alkaline Phosphatase 42 U/L (45-117); Anion Gap 6 (5-15); BUN 16 mg/dL (7-18); BUN/Creat Ratio 20.1 RATIO (10-20); Calcium,Total 9.3 mg/dL (8.5-10.1); Chloride 105 mmol/L (98-107); EST Glomerular Filtration Rate 102 mL/min (>60); Est Glom Filt Rate - Afr Amer 123 mL/min (>60); Glucose 108 mg/dL (74-106); Potassium 3.7 mmol/L (3.5-5.1); Protein, Total 6.7 g/dL (6.4-8.2); Sodium Level 138 mmol/L (136-145)
== END | disposition home or self-care (01) ==
LOC: LAB 12:21
PROVIDERS: PCP Internal Medicine; Referring Provider Physician Assistant; Visit Provider Physician Assistant
DX: R60.0 Localized edema (principal)
CPT/HCPCS: 36415; 80053

== ENCOUNTER → 2024-12-17 | Outpatient (CLI) | payer MEDICARE, OTHER, SELFPAY ==
--- NOTE | 2024-12-17 10:25 | RAD_ITS ---
EXAM: XR Lumbosacral Spine, 4 or 5 Views CLINICAL INDICATION: LUMBAR SPINE, 4+ VIEWS TECHNIQUE: Frontal, lateral and bilateral oblique views of the lumbar spine. COMPARISON: No relevant prior studies available. FINDINGS: VERTEBRAE: Multilevel endplate degenerative changes and disc disease of F 1 to S1. Normal alignment. No acute fracture. SACRUM/COCCYX: Unremarkable as visualized. No acute fracture. DISC SPACES: No acute findings. No significant narrowing. SOFT TISSUES: Unremarkable. RAD/L/S Spine Min 4 Views IMPRESSION: 1. No acute fracture. 2. Degenerative changes as above. 3. If symptoms persist, further evaluation with MRI is recommended. Reading [facility]
--- NOTE | 2024-12-17 10:25 | RAD_ITS ---
EXAM: XR Right Hand Complete, 3 or More Views CLINICAL INDICATION: HAND, 3 VIEWS TECHNIQUE: Frontal, lateral and oblique views of the right hand. COMPARISON: No relevant prior studies available. FINDINGS: BONES/JOINTS: Unremarkable. No acute fracture. No dislocation. SOFT TISSUES: Unremarkable. No radiopaque foreign body. RAD/Hand Min 3 Views IMPRESSION: No acute fracture. Reading [facility]
--- NOTE | 2024-12-17 10:25 | RAD_ITS ---
EXAM: XR Right Wrist Complete, 3 or More Views CLINICAL INDICATION: WRIST, 3+ VIEWS TECHNIQUE: Frontal, lateral and oblique views of the right wrist. COMPARISON: No relevant prior studies available. FINDINGS: BONES/JOINTS: Severe degenerative changes of the 1st carpometacarpal joint. No acute fracture. No dislocation. SOFT TISSUES: Soft tissue swelling. No radiopaque foreign body. RAD/Wrist min 3 Views IMPRESSION: Degenerative changes as above. Reading [facility]
--- NOTE | 2024-12-17 10:25 | RAD_ITS ---
EXAM: XR Bilateral Hips With Pelvis When Performed, 2 or 3 Views CLINICAL INDICATION: HIPS, UNI, TWO VIEWS WITH AP PELVIS VIEW TECHNIQUE: Three or four views of the bilateral hips with pelvis when performed. COMPARISON: No relevant prior studies available. FINDINGS: BONES/JOINTS: Mild degenerative change of the hip joints, bilaterally. No acute fracture. No dislocation. SOFT TISSUES: Unremarkable. RAD/Hips B/L min 2 views w/ Pelvis IMPRESSION: Degenerative changes as above. Reading [facility]
== END | disposition home or self-care (01) ==
LOC: RAD 10:15
PROVIDERS: PCP Internal Medicine; Referring Provider Internal Medicine; Visit Provider Internal Medicine
DX: M79.641 Pain in right hand (principal); M25.552 Pain in left hip
CPT/HCPCS: 72110; 73110; 73130; 73521

== ENCOUNTER → 2025-01-10 | Outpatient (CLI) | payer MEDICARE, OTHER, SELFPAY ==
--- NOTE | 2025-01-10 09:40 | RAD_ITS ---
PROCEDURE: ESOPHAGUS DUAL CONTRAST 01/10/2025 REASON FOR EXAM: DYSPHAGIA TECHNIQUE: Single and double contrast esophagram. Fluoroscopy time 281 seconds. Dose: 79.6 mGy-cm. COMPARISON: None. FINDINGS: A prominent cricopharyngeus muscle was seen. Limited imaging of the hypopharynx cervical portion is seen, but there is suggestion of polyp or mass present (not definitive). Also, despite extensive imaging, a 13 mm barium tablet is not seen to advanced beyond the hypopharynx, despite the patient feeling like he successfully swallowed the tablet. Within the thoracic esophagus, no area of persistent narrowing is seen. During the time of this examination, gastroesophageal reflux was not seen. No hiatal hernia is seen. Recurrent spasm of the thoracic esophagus was noted. A widely patent esophagogastric junction is noted. Limited imaging of the stomach and duodenum shows no abnormality. RAD/Esophagus Dual Contrast IMPRESSION: 1. Limited imaging of the hypopharynx cervical portion is seen, but there is langston ggestion of polyp or mass present (not definitive). Also, despite extensive imaging, a 13 mm barium tablet is not seen to advanced beyond the hypopharynx, despite the patient feeling like he successfully swallowed the tablet. At this time, recommend con sideration for direct visualization. 2. Recurrent spasm of the thoracic esophagus. Reading Location: [place] [id number]
== END | disposition home or self-care (01) ==
LOC: RAD 09:27
PROVIDERS: PCP Internal Medicine; Referring Provider Internal Medicine; Visit Provider Internal Medicine
DX: R13.10 Dysphagia, unspecified (principal)
CPT/HCPCS: 74221

== ENCOUNTER → 2025-03-05 | Outpatient (CLI) | payer MEDICARE, OTHER, SELFPAY ==
--- NOTE | 2025-03-05 13:23 | NEURO ---
NCS and/or EMG Patient Report Ordering Doctor: Marilu Queen DATE OF SERVICE: 03/05/25 Dontae presents with tightness in the right thigh. Electrodiagnostic findings: Right peroneal motor nerve measured at the EDB demonstrated no response. Right tibial motor nerve demonstrates normal distal latency and amplitude with reduced conduction velocity. Absent right sural and superficial peroneal responses. Prolonged right tibial F-wave wave. Prolonged H?reflex bilaterally. Needle EMG testing was performed the right lower limb. All muscles tested showed no evidence of denervation with normal motor unit action potentials. Electrodiagnostic impression: This is an abnormal study. 1. Electrodiagnostic findings demonstrate absence of sensory responses and right peroneal motor response with a decreased right tibial motor conduction velocity. Additionally has prolonged right tibial F-wave and H-reflexes. Findings are suspicious for a polyneuropathy but for a more accurate assessment would recommend correlation with the left lower limb and one upper extremity. 2. Electrodiagnostic evidence is noted for lumbosacral radiculopathy Multi Select Codes Neurology Neurology Interp Codes: 74684-66 Musc test done w/n test comp (interp) and 14563-72 Nrv cndj tst 5-6 studies (interp)
== END | disposition home or self-care (01) ==
LOC: PSN 12:12
PROVIDERS: PCP Internal Medicine; Referring Provider Internal Medicine; Visit Provider Internal Medicine
DX: R20.2 Paresthesia of skin (principal)
CPT/HCPCS: 95886; 95909

== ENCOUNTER → 2025-05-23 | Outpatient (CLI) | payer MEDICARE, OTHER, SELFPAY ==
[2025-05-23 11:35] LABS: AST(SGOT) 25 U/L (<=37); Alanine Aminotransfer ALT/SGPT 18 U/L (<=46); Albumin, Serum 3.9 g/dL (3.4-4.8); Alkaline Phosphatase 33 U/L (40-129); Anion Gap 12 (5-15); BUN 11 mg/dL (4-19); BUN/Creat Ratio 15.8 RATIO (10-20); Calcium,Total 9.3 mg/dL (7.6-11.0); Carbon Dioxide 22.8 mmol/L (21.0-32.0); Chloride 103 mmol/L (98-108); Cholesterol 131 mg/dL (<=200); Globulin 2.8 g/dL (2.2-4.2); Glucose 75 mg/dL (70-99); Low Density Lipoprotein Calc. 75 mg/dL; Potassium 3.9 mmol/L (3.3-5.1); Triglycerides 61 mg/dL; Very Low Density Lipoprotein 12 mg/dL (5-40); Vitamin D,25 Hydroxy 49.4 ng/mL (30-100); cholesterol:hdl ratio screen 3.01
[2025-05-24 09:08] LABS: CRP, High Sensitivity 3.57 mg/L (0.00-3.00)
== END | disposition home or self-care (01) ==
PROVIDERS: PCP Internal Medicine; Referring Provider Internal Medicine; Visit Provider Internal Medicine
DX: R79.82 Elevated C-reactive protein (CRP) (principal); E78.5 Hyperlipidemia, unspecified; R79.89 Other specified abnormal findings of blood chemistry; G62.9 Polyneuropathy, unspecified
CPT/HCPCS: 36415; 80053; 80061; 82306; 86141